=== PATIENT | male | born 1930 | race Caucasian/White ===

== ENCOUNTER → 2016-10-24 | Outpatient (CLI) | payer BC ==
[2016-10-24 17:02] LABS: BASO % 0.1 %; BASO ABS # 0.01 K/uL (0-0.2); COMPLETE YES; EOS % 7.7 %; HEMATOCRIT 37.5 % (42-52); IG% 0.4 %; LYMPH % 17.3 %; LYMPH ABS # 1.37 K/uL (1.2-3.4); MEAN CELL VOLUME 98.7 fL (80-100); MEAN CORPUSCULAR HEMOGLOBIN 34.2 pg (25-34); MEAN CORPUSCULAR HGB CONC 34.7 g/dl (32-36); MEAN PLATELET VOLUME 7.8 fL (7.4-10.4); MONO % 6.3 %; NEUT % 68.2 %; PLATELET COUNT 309 K/uL (130-400); WHITE BLOOD COUNT 7.94 K/uL (4.8-10.8)
[2016-10-24 17:26] LABS: BLOOD UREA NITROGEN 23 mg/dl (7-18); BUN/CREATININE RATIO 28.9 (10-20); CALCIUM 9.1 mg/dl (8.5-10.1); CARBON DIOXIDE 29 mmol/L (21-32); CHLORIDE 98 mmol/L (98-107); GLUCOSE 102 mg/dl (70-99); SODIUM 137 mmol/L (136-145)
== END | disposition home or self-care (01) ==
LOC: C.LABBC 15:23
PROVIDERS: ATTEND Internal Medicine Geriatric Medicine
DX: D64.9 Anemia, unspecified (principal); R06.02 Shortness of breath; I27.2 Other secondary pulmonary hypertension; J44.9 Chronic obstructive pulmonary disease, unspecified; E04.2 Nontoxic multinodular goiter

== ENCOUNTER → 2017-03-28 | Outpatient (CLI) | payer BC ==
[2017-03-28 13:28] LABS: BASO % 0.1 %; BASO ABS # 0.01 K/uL (0-0.2); COMPLETE YES; EOS % 3.9 %; IG% 0.3 %; LYMPH % 20.4 %; LYMPH ABS # 1.47 K/uL (1.2-3.4); MEAN CELL VOLUME 102.3 fL (80-100); MEAN CORPUSCULAR HEMOGLOBIN 34.3 pg (25-34); MEAN CORPUSCULAR HGB CONC 33.5 g/dl (32-36); MEAN PLATELET VOLUME 8.3 fL (7.4-10.4); MONO % 6.9 %; NEUT % 68.4 %; PLATELET COUNT 305 K/uL (130-400); RED BLOOD COUNT 3.91 M/uL (4.7-6.1)
[2017-03-28 13:58] LABS: ALT/SGPT 22 U/L (12-78); AST/SGOT 21 U/L (15-37); BLOOD UREA NITROGEN 18 mg/dl (7-18); BUN/CREATININE RATIO 22.7 (10-20); CARBON DIOXIDE 30 mmol/L (21-32); CHLORIDE 102 mmol/L (98-107); GLUCOSE 90 mg/dl (70-99); POTASSIUM 4.1 mmol/L (3.5-5.1); SODIUM 137 mmol/L (136-145)
[2017-03-28 14:08] LABS: ALB/GLOB RATIO 1.1 (0.9-2); ALKALINE PHOSPHATASE 53 U/L (45-117)
== END | disposition home or self-care (01) ==
LOC: C.LABBC 10:31
PROVIDERS: ATTEND Internal Medicine Geriatric Medicine
DX: D64.9 Anemia, unspecified (principal); R06.02 Shortness of breath; E04.2 Nontoxic multinodular goiter; E53.8 Deficiency of other specified B group vitamins; E55.9 Vitamin D deficiency, unspecified; J44.9 Chronic obstructive pulmonary disease, unspecified

== ENCOUNTER → 2017-04-30 | Outpatient (CLI) | payer BC ==
--- NOTE | 2017-04-30 14:06 | DIAGNOSTIC IMAGING REPORT ---
(CHEST) THORAX WITHOUT CLINICAL HISTORY: I71.2 CHEST PAIN. HISTORY OF THORACIC AORTIC ANEURYSM. COMPARISON STUDY: A 2216 CT DOSE: 213.18 mGy.cm TECHNIQUE: CT of the thorax was performed from the thoracic inlet to the lung bases. Images are reviewed in the axial, sagittal, and coronal planes. IV contrast was not administered for this examination. A dose lowering technique was utilized adhering to the principles of ALARA. FINDINGS: Thyroid: Imaged portions of the thyroid gland are normal in appearance. Thoracic aorta: There is dilatation of the ascending thoracic aorta which measures 47 mm in diameter at the level of the pulmonary artery. This remains relatively similar to the preceding study. Heart: The heart is normal in size and configuration, without pericardial effusion. Lungs and pleural spaces: There is no focal pulmonary consolidation. No pleural effusions are visualized. There is lower lobe scarring. There is scattered calcified granulomas. Mediastinum: There is no evidence of pathologic adenopathy [place]: There is no evidence of pathologic hilar adenopathy given the limitations of a noncontrast study Axilla: There is no evidence of pathologic axillary lymphadenopathy Upper abdomen: Partially visualized upper abdominal viscera is within normal limits. Skeletal structures: There is an old T12 compression deformity. IMPRESSION: 1. Mild aneurysmal dilatation of the ascending thoracic aorta which measures 4.6 cm. 2. No evidence of focal pulmonary consolidation. No pleural effusions. Electronically signed by: Lyle Zeng M.D. 04/30/2017 2:05 PM Dictated Date/Time: 04/30/2017 2:01 PM
== END | disposition home or self-care (01) ==
LOC: C.CTS 13:31
PROVIDERS: ATTEND Internal Medicine Geriatric Medicine
DX: I71.2 Thoracic aortic aneurysm, without rupture (principal)

== ENCOUNTER → 2017-07-11 | Outpatient (CLI) | payer BC ==
--- NOTE | 2017-07-11 16:21 | DIAGNOSTIC IMAGING REPORT ---
ULTRASOUND BILATERAL LOWER EXTREMITY VENOUS CLINICAL HISTORY: Lower extremity edema. COMPARISON STUDY: No priors. TECHNIQUE: Real-time, grayscale, and color Doppler sonography of the deep veins of the right and left lower extremity was performed from the inguinal crease to the calf. Compression and augmentation were utilized. FINDINGS: There is no sonographic evidence of deep venous thrombosis identified in the right or left lower extremity. The common femoral, superficial femoral, and popliteal veins are patent and normally compressible bilaterally. The greater saphenous vein and the profunda femoris vein at the junction with the common femoral vein are clear in both legs. The visualized calf veins are patent bilaterally. IMPRESSION: There is no sonographic evidence of deep venous thrombosis identified in the right or left lower extremity. Electronically signed by: Vince Schwartz M.D. 07/11/2017 4:20 PM Dictated Date/Time: 07/11/2017 4:20 PM
== END | disposition home or self-care (01) ==
LOC: C.ULTR 15:14
PROVIDERS: ATTEND Internal Medicine Pulmonary Disease
DX: R60.9 Edema, unspecified (principal)

== ENCOUNTER → 2017-08-15 | Outpatient (CLI) | payer BC | END | disposition home or self-care (01) | LOC: C.PATHSPEC 17:20 | PROVIDERS: ATTEND Plastic Surgery | DX: L57.0 Actinic keratosis (principal) ==

== ENCOUNTER → 2017-10-03 | Outpatient (CLI) | payer BC ==
[2017-10-03 13:34] LABS: BASO % 0.3 %; BASO ABS # 0.02 K/uL (0-0.2); EOS % 5.4 %; EOS ABS # 0.38 K/uL (0-0.5); HEMOGLOBIN 13.3 g/dL (14.0-18.0); IG# 0.02 K/uL (0.00-0.02); LYMPH % 19.5 %; LYMPH ABS # 1.38 K/uL (1.2-3.4); MEAN CELL VOLUME 101.5 fL (80-100); MEAN CORPUSCULAR HEMOGLOBIN 33.8 pg (25-34); MEAN CORPUSCULAR HGB CONC 33.3 g/dl (32-36); MEAN PLATELET VOLUME 7.9 fL (7.4-10.4); MONO % 6.2 %; MONO ABS # 0.44 K/uL (0.11-0.59); NEUT % 68.3 %; NEUT ABS # 4.85 K/uL (1.4-6.5); PLATELET COUNT 302 K/uL (130-400); RED CELL DISTRIBUTION WIDTH SD 52.4 fL (36.4-46.3); WHITE BLOOD COUNT 7.09 K/uL (4.8-10.8)
[2017-10-03 13:57] LABS: BLOOD UREA NITROGEN 15 mg/dl (7-18); CALCIUM 9.1 mg/dl (8.5-10.1); CARBON DIOXIDE 29 mmol/L (21-32); CREATININE 0.79 mg/dl (0.60-1.40); GLUCOSE 88 mg/dl (70-99); POTASSIUM 4.1 mmol/L (3.5-5.1); SODIUM 133 mmol/L (136-145)
== END | disposition home or self-care (01) ==
LOC: C.LABBC 11:18
PROVIDERS: ATTEND Internal Medicine Geriatric Medicine
DX: D64.9 Anemia, unspecified (principal); R60.9 Edema, unspecified

== ENCOUNTER → 2017-11-14 | Outpatient (CLI) | payer BC | END | disposition home or self-care (01) | LOC: C.PATHSPEC 16:41 | PROVIDERS: ATTEND Physician Assistant | DX: C44.629 Squamous cell carcinoma of skin of left upper limb, including shoulder (principal); L85.9 Epidermal thickening, unspecified; L57.8 Other skin changes due to chronic exposure to nonionizing radiation; L90.5 Scar conditions and fibrosis of skin ==

== ENCOUNTER 2020-12-08 18:10 | Inpatient (IN) ==
[2020-12-08] MEDS ORDERED: SODIUM CHLORIDE 0.9% 1000ML 1,000 ML IV SCH (18:45)
[2020-12-08 18:49] LABS: Basophils # (auto) 0.01 K/uL (0-0.2); Eosinophils # (auto) 0.01 K/uL (0-0.5); Hematocrit (blood only) 37.3 % (42-52); Hemoglobin 12.7 g/dL (14.0-18.0); Immature Granulocytes # (auto) 0.12 K/uL (0.00-0.02); Immature Granulocytes % (auto) 0.6 %; Lymphocytes # (auto) 0.37 K/uL (1.2-3.4); Lymphocytes % (auto) 1.8 %; Mean Corpuscular Hemoglobin 34.6 pg (25-34); Mean Corpuscular Volume 101.6 fL (80-100); Mean Platelet Volume 8.1 fL (7.4-10.4); Monocytes # (auto) 0.63 K/uL (0.11-0.59); Monocytes % (auto) 3.1 %; Neutrophils # (auto) 19.51 K/uL (1.4-6.5); Neutrophils % (auto) 94.5 %; Platelet Count 244 K/uL (130-400); RDW Coefficient of Variation 14.6 % (11.5-14.5); RDW Standard Deviation 54.4 fL (36.4-46.3); Red Blood Count 3.67 M/uL (4.7-6.1); White Blood Count 20.65 K/uL (4.8-10.8)
[2020-12-08] MEDS ORDERED: MAGNESIUM SULFATE / D5W 1 GM/100 ML BAG IV STA (19:02)
[2020-12-08] MEDS ORDERED: ALBUTEROL HFA 8 GM INHALER INH ONE (19:02)
[2020-12-08 19:06] LABS: Albumin Level 3.2 gm/dl (3.4-5.0); BUN Creatinine Ratio 33.3 (10-20); Calcium 8.6 mg/dl (8.5-10.1); Creatinine Clr Calc Pharmacy 53.5 ml/min; Est GFR (African American) 91.1; Est GFR (Non-African American) 78.6; Potassium 3.3 mmol/L (3.5-5.1)
--- NOTE | 2020-12-08 19:09 | XRay Report ---
SINGLE VIEW CHEST CLINICAL HISTORY: Generalized weakness. FINDINGS: An AP, portable, upright chest radiograph is compared to study dated 04/20/2020 and correlat ed with chest CT dated 05/08/2018. The examination is degraded by portable technique and patient rota tion. The heart is enlarged and there is atherosclerotic calcification of the thoracic aorta. The p ulmonary vasculature is noncongested. Prominence of the central pulmonary vessels likely represents p ulmonary artery hypertension. Emphysema and chronic interstitial thickening are similar to previous. Foci of parenchymal scarring/atelectasis are seen throughout both lungs. There is no evidence of supe rimposed airspace consolidation or large pleural effusion. There is no pneumothorax. The skeletal str uctures are osteopenic. Degenerative change is noted throughout the thoracic spine and in the shoulde rs. IMPRESSION: Cardiomegaly and emphysema with no acute cardiopulmonary abnormality. Electronically signed by: Vince Schwartz M.D. 12/08/2020 7:07 PM
--- NOTE | 2020-12-08 19:23 | CT Scan Report ---
CT SCAN OF THE CERVICAL SPINE CLINICAL HISTORY: Fall. COMPARISON STUDY: No priors. TECHNIQUE: CT scan of the cervical spine is performed from the skull base to the upper thoracic spine . Images are reviewed in the axial, sagittal, and coronal planes. IV contrast was not administered fo r this examination. A dose lowering technique was utilized adhering to the principles of ALARA. CT DOSE: 1226.66 mGy.cm FINDINGS: Skeletal structures: The skeletal structures are osteopenic. There is no evidence of fracture or subl uxation involving the cervical spine. Vertebral body height and alignment are maintained. Anterior os teophytes are seen throughout. The odontoid process and lateral masses are intact. The atlantoaxial a rticulation is preserved noting advanced productive degenerative change. The spinous processes appear intact. There is moderate to advanced multilevel cervical spondylosis. Uncovertebral and facet arthr opathy contribute to neural foraminal stenosis at most levels. Intervertebral discs: There is moderate to advanced disc space narrowing seen at C4-C5, C5-C6, and C6 -C7. Mild to moderate disc space narrowing is seen at the remaining cervical levels. Central canal: Posterior disc osteophyte complexes are seen at all levels from C3 -C4 through C6-C7. This likely contributes to multilevel acquired compromise of the central canal. Soft tissues: The prevertebral and paraspinous soft tissues are within normal limits. Calvarium: The visualized calvarium at the skull base appears intact. Brain parenchyma: Partially visualized brain parenchyma at the skull base is within normal limits. Mastoids: The mastoid air cells are well pneumatized. Lung apices: Clear as visualized. IMPRESSION: 1. There is no evidence of fracture or subluxation involving the cervical spine. 2. Osteopenia and spondylotic change as above. ACT 112: Negative or not required by law. Electronically signed by: Vince Schwartz M.D. 12/08/2020 7:21 PM
--- NOTE | 2020-12-08 19:25 | CT Scan Report ---
CT SCAN OF THE BRAIN WITHOUT IV CONTRAST CLINICAL HISTORY: Fall. COMPARISON STUDY: CT of the brain dated 11/12/2007. TECHNIQUE: Unenhanced axial CT scan of the brain is performed from the vertex to the skull base. A do se lowering technique was utilized adhering to the principles of ALARA. FINDINGS: Brain parenchyma: There are age-related involutional changes noting advanced subcortical and periven tricular microangiopathic change. There is no hemorrhage, mass effect, or evidence of acute territori al ischemia by CT criteria. Sanderson-white matter differentiation is preserved. No extra-axial fluid dre ection is seen. Ventricles, sulci, cisterns: Prominent secondary to involutional change. Intracranial vasculature: There is atherosclerotic calcification of the cavernous carotid and vertebr al arteries. Calvarium: The skeletal structures are osteopenic. No depressed calvarial fracture is identified. Sinuses and mastoids: The visualized paranasal sinuses are clear. The mastoid air cells are well pneu matized. Orbits: The bony orbits are grossly intact. There are bilateral ocular lens implants. IMPRESSION: There is no hemorrhage, mass effect, or evidence of acute territorial ischemia by CT ashley weston. ACT 112: Negative or not required by law. Electronically signed by: Vince Schwartz M.D. 12/08/2020 7:24 PM
[2020-12-08 19:27] LABS: Bilirubin,Total 4.5 mg/dl (0.2-1); Globulin 3.1 gm/dl (2.5-4.0); Thyroid Stimulating Hormone 0.884 uIu/ml (0.300-4.500); Total Protein 6.3 gm/dl (6.4-8.2); Troponin I 0.046 ng/ml (0-0.045)
[2020-12-08] MEDS ORDERED: PIPERACILLIN/TAZOBACTAM 4.5 GM/120 ML BAG IV ONE (19:36)
[2020-12-08] MEDS ORDERED: PIPERACILL/TAZOBAC CONSULT ACTIVE PRN (19:36)
[2020-12-08 19:48] LABS: Influenza A virus by PCR Negative (Neg); Influenza B virus by PCR Negative (Neg); RSV by PCR Negative (Neg); SARS CoV2 RNA(COVID-19) InHosp NEGATIVE (Negative)
[2020-12-08] MEDS ORDERED: ALBUT/IPRATROP 3MG/0.5MG NEB 3 ML VIAL NEB STA (19:49)
[2020-12-08] MEDS ORDERED: OPTIRAY 320 100ml IV ONE (20:50)
--- NOTE | 2020-12-08 21:17 | CT Scan Report ---
CT SCAN OF THE ABDOMEN AND PELVIS WITH IV CONTRAST CLINICAL HISTORY: Hyperbilirubinemia. COMPARISON STUDY: Abdominal CT dated 11/14/2007. TECHNIQUE: Following the IV administration of 93 cc of Optiray 320, CT scan of the abdomen and pelvi s is performed from the lung bases to the proximal femora. Images are reviewed in the axial, sagittal , and coronal planes. IV contrast was administered without complication. A dose lowering technique wa s utilized adhering to the principles of ALARA. CT DOSE: 247.67 mGy.cm FINDINGS: Lung bases: The heart is enlarged and without pericardial effusion. Aneurysmal dilatation of the asce nding thoracic aorta is partially visualized. This measures up to 4.5 cm. There is bibasilar scarring /atelectasis, greatest at the right lung base. No airspace consolidation or pleural effusion is ident ified. There is a small hiatal hernia. Liver: The contrast-enhanced liver is normal in size, contour, and attenuation. There is no intrahepa tic biliary ductal dilatation. The hepatic veins and portal veins are patent. Gallbladder: The gallbladder is distended. The gallbladder wall appears thickened and there is mild p ericystic infiltration. Question a calcified gallstone within the common bile duct on image #[id number]. Spleen: Normal in size and attenuation. Pancreas: Moderately atrophic and grossly unremarkable. Adrenal glands: Unremarkable. Kidneys: The contrast enhanced kidneys demonstrate cortical atrophy and are without hydronephrosis. T he kidneys enhance symmetrically. Abdominal vasculature: The abdominal aorta is normal in course and caliber noting moderate atheroscle rotic calcification. Bowel: No bowel obstruction is identified. There is moderate constipation. There is mild to moderate colonic diverticulosis without CT evidence of acute diverticulitis. The appendix is not visualized. Peritoneum: There is no intraperitoneal free air or abdominal ascites. Lymphadenopathy: None. Pelvic viscera: The prostate gland is diminutive and heterogeneous. The bladder is normal as visualiz ed. A left inguinal hernia contains a nonobstructed segment of colon. Skeletal structures: The skeletal structures are osteopenic. There is moderate to advanced lumbosacra l spondylosis. There is a chronic compression deformity of T12. No lytic or blastic lesions are seen. IMPRESSION: 1. Findings are concerning for acute cholecystitis and clinical correlation will be required. If nece ssary a right upper quadrant ultrasound could be considered for further assessment. 2. Question a calcified gallstone within the common bile duct. 3. Cardiomegaly with aneurysmal dilatation of the ascending thoracic aorta. This is partially visuali zed and measures up to 4.5 cm. 4. Mild to moderate colonic diverticulosis without CT evidence of acute diverticulitis. 5. A left inguinal hernia contains a small segment of colon. 6. Additional findings as above. ACT 112: Negative or not required by law. Electronically signed by: Vince Schwartz M.D. 12/08/2020 9:15 PM
[2020-12-08] MEDS ORDERED: SODIUM CHLORIDE 0.9% 1000ML 500 ML IV ONE (21:58)
--- NOTE | 2020-12-08 22:39 | History & Physical Report ---
Date of Service December 08, 2020 Assessment & Plan (1) Ascending cholangitis: Patient is an 89 year old male with PMHx COPD, Dementia, BPH, and Macrocytic anemia that presents after supposed mechanical fall at home, found to have elevated LFTs, hyperbilirubinemia, and findings concerning for acute cholecystitis on abdominal/pelvis CT. Acute Cholecystitis with concerns of Ascending Cholangitis secondary to choledocholithiasis -Interestingly enough, patient without any signs of pain -LFT's grossly elevated AST 387, ALT 484, Alk Phos 220, Bilirubin 4.5 -CT Ab/Pelv noting acute cholecystitis with choledocholithiasis -MRCP ordered, read pending -Surgery consulted in ED - rec MRCP in addition to possible ERCP prior to likely cholecystectomy -GI consulted for possible ERCP -Patient started on Zosyn in ED, will continue with Zosyn -NPO, LR 80ml/hr x2L -Zofran PRN nausea -Morphine PRN pain, though patient has not explicit noted pain at this time -Tylenol PRN fever, has not required, appropriate even with acute elevations in LFTs if needed for antipyretic Fall -Per review of patient's recent wellness visit notes, appears to have been worsening as patient's Dementia has worsened -Head CT, Cervical Spine CT negative for acute pathology -Patient would likely benefit from PT/OT and short term rehab at SNF or inpatient rehab after his surgical complications are dealt with. -Would order PT/OT after suspected ERCP and cholecystectomy. Elevated Troponin -Troponin bump of 0.046 -No obvious concerning EKG changes -No chest pain, pressure, or angina on exertion -Will trend once in AM COPD -Received breathing treatments and 40mg IV Methylprednisolone in the ED -Continue home Breo Ellipta -Albuterol PRN -Duoneb PRN BPH -Continue home Finasteride Lower Extremity Edema -Chronic per patient -No history of heart failure -Regardless, will monitor fluid balance and hydrate gently with LR 80 ml/hr as to not fluid overload patient Macrocytic Anemia -Appears chronic secondary to hx Vitamin B12 deficiency -?Due to prior alcohol use -Will continue supplementation of B12 Dispo: Med/Surg for IVF, IV antibiotics, and continued monitoring for likely cholecystectomy and ERCP. Will likely require SNF or inpatient rehab placement after discharge. FEN: NPO, LR 80ml/hr x2L DVT: SCDs Code: DNR/DNI (2) COPD (chronic obstructive pulmonary disease): (3) Fall: (4) Skin tear: (5) Benign prostatic hyperplasia with urinary obstruction: (6) Macrocytic anemia: (7) Lower extremity edema: (8) Cholecystitis: History of Present Illness Chief Complaint: Fall Primary Care Provider: Eric Valadez DO Patient is an 89 year old male with PMHx COPD, Dementia, BPH, and Macrocytic anemia that presents after supposed mechanical fall at home, found to have elevated LFTs, hyperbilirubinemia, and findings concerning for acute cholecystitis on abdominal/pelvis CT. Patient notes that he has had increasing falls over the past few weeks, though this was not necessarily a new thing for him. He states that tonight after dinner (which he did not eat, last meal was toast and coffee in the AM), patient had taken his lift chair up to the second floor where his bedroom was. Upon arriving there he was handed his cane by his and as he proceeded to go into their room, he notes that he tripped and fell forward, hitting his L forehead, L elbow, and L knee. He denies feeling as though he were dizzy, weak, or about to faint and felt that he "just tripped." Supposedly unrelated to the fall, patient also has been noting worsening nausea and vomiting x4 times the past 3 days and increasing fatigue. He states that over all he has not felt well, but was not in any pain until the fall today. Currently he does note some discomfort where he had hit his head, arm, and knee. The abrasions on his L forehead and L elbow had ceased bleeding and his L knee was bandaged by the ED at time of evaluation. Patient denies any fever, chills, chest pain, abdominal pain, dizziness, visual changes. Med Hx: COPD, Dementia, BPH, Macrocytic Anemia Surg Hx: Lithotripsy, Thoracic aortic aneurysm repair, cataract surgery Soc Hx: No illicit drug use. Hx of alcohol use but quit 5-6 years ago. Hx of smoking pipe tobacco from ages [age]. Allergies Allergy/AdvReac Type Severity Reaction Status Date / Time No Known Allergies Allergy Verified 12/08/20 19:43 Home Medications Medication Instructions Recorded Confirmed Type ergocalciferol (vitamin D2) 50 mcg 2,000 units PO DAILY 11/17/19 12/08/20 History (2,000 unit) tablet mecobalamin (vitamin B12) 1,000 1,000 mcg PO DAILY 11/17/19 12/08/20 History mcg chewable tablet albuterol sulfate 90 mcg/actuation 2 puff INH Q4H PRN #18 gm 09/09/20 12/08/20 Rx aerosol inhaler finasteride 5 mg tablet 5 mg PO DAILY #90 tab 10/29/20 12/08/20 Rx ipratropium 0.5 mg-albuterol 3 mg 3 ml INH Q4H PRN #360 ml 11/25/20 12/08/20 Rx (2.5 mg base)/3 mL nebulization soln nebulizer accessories #1 ea 11/25/20 12/08/20 Rx furosemide 20 mg tablet 20 mg PO BID #180 tab 12/01/20 12/08/20 Rx budesonide-formoterol 2 puff INHALATION BID 12/08/20 12/08/20 History 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 COPD (chronic obstructive pulmonary disease) Degenerative arthritis of knee, bilateral H/O hearing loss H/O squamous cell carcinoma H/O varicose veins H/O vitamin D deficiency History of basal cell carcinoma Venous insufficiency Surgical History H/O repair of rotator cuff H/O thoracic aortic aneurysm repair History of lithotripsy History of tooth extraction Hx of cataract surgery Hx of colonoscopy Family History Mother Acquired amyotrophic lateral sclerosis Father Throat cancer Laryngeal cancer Denies family history of Prostate cancer Social History Smoking Status: Former smoker Tobacco Type: Pipe Second Hand Exposure: No; Do You Dip or Chew Tobacco: No; Tobacco Cessation Education Requested by Patient: No Hx Alcohol Use: Yes Alcohol type: beer Hx Substance Use: No Preferred Language: Finnish Communication Ability: Effective Visual Impairment: Limited Hearing Ability: Hard of Hearing Vegetable Buncher Required: No Beliefs That Will Affect Care: None marital status: Current Living Situation: Spouse Current Living Situation Comment: Lives at home with . 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 [employer] Other Information That Helps Us Care for You: No Feels Safe at Home: Yes Safety Concerns: Feels Safe At This Time Childhood Exposure to Second-Hand Smoke: Yes caffeine: Yes Dental Care, Regularly: Yes Physical Activity Frequency: Does not Exercise Seatbelt Use: always Sunscreen Use: No (does not go outside) Assistive Devices: Walker Review of Systems Review of Systems: All systems reviewed & are unremarkable except as noted in Subjective Physical Exam Constitutional: cooperative; no acute distress and not intoxicated appearing Eyes: PERRL, conjunctivae normal, anicteric sclerae ENMT: external ear and nose normal, oropharynx normal Respiratory: normal respiratory effort, lungs clear to auscultation Cardiovascular: Rate/Rhythm: regular rate and regular rhythm Heart Sounds: no murmur Gastrointestinal (Abdomen): Inspection/Auscultation: abdomen normal to inspection and normal bowel sounds; abdomen not distended Percussion/Palpation: abdomen nontender Negative Kelly's Sign Musculoskeletal: Skin abrasion noted on the L forehead, L elbow, R elbow, and L knee which has been dressed Skin: + jaundice Neurologic: PERRL, EOMI, accommodation nl, no face palsy, no dysarthria Psychiatric: A+Ox3, euthymic affect Results & Data Results & Data ([facility]) Vital Signs (Past 12 Hours) Vital Signs Temp Pulse Pulse Resp BP Pulse Ox 12/08/20 21:50 102 H 25 H 12/08/20 21:40 104 H 32 H 12/08/20 21:30 104 H 32 H 139/81 12/08/20 21:20 106 H 35 H 96 12/08/20 21:16 111 H 32 H 12/08/20 21:00 106 H 15 145/76 H 95 12/08/20 20:59 105 H 36 H 147/76 H 95 12/08/20 20:58 95 12/08/20 20:30 99 H 29 H 136/78 12/08/20 20:26 104 H 28 H 98 12/08/20 20:20 102 H 33 H 12/08/20 20:10 96 H 25 H 12/08/20 20:00 102 H 34 H 12/08/20 19:50 127 H 31 H 12/08/20 19:40 99 H 25 H 12/08/20 19:30 97 H 32 H 136/82 96 12/08/20 19:20 93 H 35 H 98 12/08/20 19:17 94 H 39 H 97 12/08/20 19:00 96 H 34 H 149/73 H 12/08/20 18:50 94 H 25 H 12/08/20 18:41 93 H 35 H 96 12/08/20 18:31 98 H 38 H 148/80 H 96 12/08/20 18:21 37.3 C 105 H 20 178/84 H 96 Laboratory Results Laboratory Results - last 24 hr 12/08/20 12/08/20 12/08/20 18:41 18:41 18:54 WBC 20.65 H RBC 3.67 L Hgb 12.7 L Hct 37.3 L MCV 101.6 H MCH 34.6 H MCHC 34.0 RDW Std Deviation 54.4 H RDW Coeff of Diana 14.6 H Plt Count 244 MPV 8.1 Immature Gran % (Auto) 0.6 Neut % (Auto) 94.5 Lymph % (Auto) 1.8 Stevens % (Auto) 3.1 Eos % (Auto) 0.0 Baso % (Auto) 0.0 Neut # (Auto) 19.51 H Lymph # (Auto) 0.37 L Stevens # (Auto) 0.63 H Eos # (Auto) 0.01 Baso # (Auto) 0.01 Immature Gran # (Auto) 0.12 H Sodium 137 Potassium 3.3 L Chloride 103 Carbon Dioxide 28 Anion Gap 6.0 BUN 28 H Creatinine 0.83 Est Cr Clr Drug Dosing 53.5 Est GFR ( Amer) 91.1 Est GFR (Non-Af Amer) 78.6 BUN/Creatinine Ratio 33.3 H Glucose 106 H Calcium 8.6 Total Bilirubin 4.5 H AST 387 H ALT 484 H Alkaline Phosphatase 220 H Troponin I 0.046 H* Total Protein 6.3 L Albumin 3.2 L Globulin 3.1 Albumin/Globulin Ratio 1.0 Lipase 92 TSH 0.884 Urine Color Urine Appearance Urine pH Ur Specific [place] Urine Protein Urine Glucose (UA) Urine Ketones Urine Blood Urine Nitrite Urine Bilirubin Urine Urobilinogen Ur Leukocyte Esterase Urine WBC (Auto) Urine RBC (Auto) U Hyaline Cast (Auto) U Epithel Cells (Auto) Urine Bacteria (Auto) Nasal Screen MRSA (PCR) COVID-19 Eval Order [facility]FluRsv at [facility] SARS-CoV-2 (PCR) Influenza Type A (PCR) Influenza Type B (PCR) RSV (RT-PCR) 12/08/20 12/08/20 12/08/20 18:54 21:25 22:55 WBC RBC Hgb Hct MCV MCH MCHC RDW Std Deviation RDW Coeff of Daina Plt Count MPV Immature Gran % (Auto) Neut % (Auto) Lymph % (Auto) Stevens % (Auto) Eos % (Auto) Baso % (Auto) Neut # (Auto) Lymph # (Auto) Stevens # (Auto) Eos # (Auto) Baso # (Auto) Immature Gran # (Auto) Sodium Potassium Chloride Carbon Dioxide Anion Gap BUN Creatinine Est Cr Clr Drug Dosing Est GFR ( Amer) Est GFR (Non-Af Amer) BUN/Creatinine Ratio Glucose Calcium Total Bilirubin AST ALT Alkaline Phosphatase Troponin I Total Protein Albumin Globulin Albumin/Globulin Ratio Lipase TSH Urine Color Dark Yellow Urine Appearance Clear Urine pH 6.5 Ur Specific [place] 1.045 H Urine Protein Trace H Urine Glucose (UA) Negative Urine Ketones 2+ H Urine Blood Negative Urine Nitrite Positive A Urine Bilirubin 2+ H Urine Urobilinogen Positive H Ur Leukocyte Esterase Negative Urine WBC (Auto) 1-5 Urine RBC (Auto) 5-10 H U Hyaline Cast (Auto) 1-5 U Epithel Cells (Auto) 5-10 H Urine Bacteria (Auto) Negative Nasal Screen MRSA (PCR) Negative COVID-19 Eval Order SARS-CoV-2 (PCR) NEGATIVE Influenza Type A (PCR) Negative Influenza Type B (PCR) Negative RSV (RT-PCR) Negative Diagnostic Findings SINGLE VIEW CHEST CLINICAL HISTORY: Generalized weakness. FINDINGS: An AP, portable, upright chest radiograph is compared to study dated 04/20/2020 and correlated with chest CT dated 05/08/2018. The examination is degraded by portable technique and patient rotation. The heart is enlarged and there is atherosclerotic calcification of the thoracic aorta. The pulmonary vasculature is noncongested. Prominence of the central pulmonary vessels likely represents pulmonary artery hypertension. Emphysema and chronic interstitial thickening are similar to previous. Foci of parenchymal scarring/atelectasis are seen throughout both lungs. There is no evidence of superimposed airspace consolidation or large pleural effusion. There is no pneumothorax. The skeletal structures are osteopenic. Degenerative change is noted throughout the thoracic spine and in the shoulders. IMPRESSION: Cardiomegaly and emphysema with no acute cardiopulmonary abnormality. CT SCAN OF THE CERVICAL SPINE CLINICAL HISTORY: Fall. COMPARISON STUDY: No priors. TECHNIQUE: CT scan of the cervical spine is performed from the skull base to the upper thoracic spine. Images are reviewed in the axial, sagittal, and coronal planes. IV contrast was not administered for this examination. A dose lowering technique was utilized adhering to the principles of ALARA. CT DOSE: 1226.66 mGy.cm FINDINGS: Skeletal structures: The skeletal structures are osteopenic. There is no evidence of fracture or subluxation involving the cervical spine. Vertebral body height and alignment are maintained. Anterior osteophytes are seen throughout. The odontoid process and lateral masses are intact. The atlantoaxial articulation is preserved noting advanced productive degenerative change. The spinous processes appear intact. There is moderate to advanced multilevel cervical spondylosis. Uncovertebral and facet arthropathy contribute to neural foraminal stenosis at most levels. Intervertebral discs: There is moderate to advanced disc space narrowing seen at C4-C5, C5-C6, and C6-C7. Mild to moderate disc space narrowing is seen at the remaining cervical levels. Central canal: Posterior disc osteophyte complexes are seen at all levels from C3 -C4 through C6-C7. This likely contributes to multilevel acquired compromise of the central canal. Soft tissues: The prevertebral and paraspinous soft tissues are within normal limits. Calvarium: The visualized calvarium at the skull base appears intact. Brain parenchyma: Partially visualized brain parenchyma at the skull base is within normal limits. Mastoids: The mastoid air cells are well pneumatized. Lung apices: Clear as visualized. IMPRESSION: 1. There is no evidence of fracture or subluxation involving the cervical spine. 2. Osteopenia and spondylotic change as above. CT SCAN OF THE BRAIN WITHOUT IV CONTRAST CLINICAL HISTORY: Fall. COMPARISON STUDY: CT of the brain dated 11/12/2007. TECHNIQUE: Unenhanced axial CT scan of the brain is performed from the vertex to the skull base. A dose lowering technique was utilized adhering to the princip les of AC. FINDINGS: Brain parenchyma: There are age-related involutional changes noting advanced subcortical and periventricular microangiopathic change. There is no hemorrhage, mass effect, or evidence of acute territorial ischemia by CT criteria. Sanderson- white matter differentiation is preserved. No extra-axial fluid collection is seen. Ventricles, sulci, cisterns: Prominent secondary to involutional change. Intracranial vasculature: There is atherosclerotic calcification of the cavernous carotid and vertebral arteries. Calvarium: The skeletal structures are osteopenic. No depressed calvarial fracture is identified. Sinuses and mastoids: The visualized paranasal sinuses are clear. The mastoid air cells are well pneumatized. Orbits: The bony orbits are grossly intact. There are bilateral ocular lens implants. IMPRESSION: There is no hemorrhage, mass effect, or evidence of acute territorial ischemia by CT criteria. CT SCAN OF THE ABDOMEN AND PELVIS WITH IV CONTRAST CLINICAL HISTORY: Hyperbilirubinemia. COMPARISON STUDY: Abdominal CT dated 11/14/2007. TECHNIQUE: Following the IV administration of 93 cc of Optiray 320, CT scan of the abdomen and pelvis is performed from the lung bases to the proximal femora. Images are reviewed in the axial, sagittal, and coronal planes. IV contrast was administered without complication. A dose lowering technique was utilized adhering to the principles of ALARA. CT DOSE: 247.67 mGy.cm FINDINGS: Lung bases: The heart is enlarged and without pericardial effusion. Aneurysmal dilatation of the ascending thoracic aorta is partially visualized. This measures up to 4.5 cm. There is bibasilar scarring/atelectasis, greatest at the right lung base. No airspace consolidation or pleural effusion is identified. There is a small hiatal hernia. Liver: The contrast-enhanced liver is normal in size, contour, and attenuation. There is no intrahepatic biliary ductal dilatation. The hepatic veins and portal veins are patent. Gallbladder: The gallbladder is distended. The gallbladder wall appears thickened and there is mild pericystic infiltration. Question a calcified gallstone within the common bile duct on image #[id number]. Spleen: Normal in size and attenuation. Pancreas: Moderately atrophic and grossly unremarkable. Adrenal glands: Unremarkable. Kidneys: The contrast enhanced kidneys demonstrate cortical atrophy and are without hydronephrosis. The kidneys enhance symmetrically. Abdominal vasculature: The abdominal aorta is normal in course and caliber noting moderate atherosclerotic calcification. Bowel: No bowel obstruction is identified. There is moderate constipation. There is mild to moderate colonic diverticulosis without CT evidence of acute diverticulitis. The appendix is not visualized. Peritoneum: There is no intraperitoneal free air or abdominal ascites. Lymphadenopathy: None. Pelvic viscera: The prostate gland is diminutive and heterogeneous. The bladder is normal as visualized. A left inguinal hernia contains a nonobstructed segment of colon. Skeletal structures: The skeletal structures are osteopenic. There is moderate to advanced lumbosacral spondylosis. There is a chronic compression deformity of T12. No lytic or blastic lesions are seen. IMPRESSION: 1. Findings are concerning for acute cholecystitis and clinical correlation will be required. If necessary a right upper quadrant ultrasound could be considered for further assessment. 2. Question a calcified gallstone within the common bile duct. 3. Cardiomegaly with aneurysmal dilatation of the ascending thoracic aorta. This is partially visualized and measures up to 4.5 cm. 4. Mild to moderate colonic diverticulosis without CT evidence of acute diverticulitis. 5. A left inguinal hernia contains a small segment of colon. 6. Additional findings as above. Supervising Physician Co-Signing Physician Notes Patient seen and examined, chart reviewed, case discussed with Dr. Wagner and I agree with his assessment and plan as above. Briefly, patient is an 89yo male presenting after fall. Found with acute cholecystitis On exam he is afebrile, HD stable, NAD Skin - mild jaundice HEENT - NC/AT, PERRL, EOMI, MMM Heart - +S1/S2, regular Lungs - CTA Abd - +BS, soft, NT/ND Ext - No edema Labs and images reviewed. Leukocytosis, elevated AST/ALT/Tbili/AP, concern for acute cholecystitis on imaging, concern for CBD stone Assessment/Plan -MRCP -GI consultation appreciated, ?ERCP -General surgery consultation -Zosy, pain control, Zofran -Remainder of plan as above Resident Activity Tracking Resident Involvement: Resident Care Provided Care Provided: Adult Hospital Medicine (1) COPD (chronic obstructive pulmonary disease) COPD type: unspecified COPD Qualified Code(s): J44.9 - Chronic obstructive pulmonary disease, unspecified (2) Fall Encounter type: initial encounter Qualified Code(s): W19.XXXA - Unspecified fall, initial encounter
--- NOTE | 2020-12-08 23:22 | Emergency Department Note ---
Impression & Plan Ascending cholangitis, COPD (chronic obstructive pulmonary disease), Fall, Skin tear ED Provider Note NAME: CHRISTY MEYERS AGE: 89 SEX: M : 1930 ARRIVES VIA: Ambulance INFORMANT: Patient, ED PROVIDER(S): Oj Corrales MD Chief Complaint: Fall, weakness HPI: Patient does present with his after the patient had approximately an hour getting into the lift chair and upon getting up to the top of the stairs had a fall striking the left side of his head. No LOC or seizure-like activity. The patient does not complain of any headache or neck pain. The patient denies any chest back abdomen or extremity pain with exception of mild pain to the right arm secondary to a skin tear. The patient does not take anything prior to arrival. The patient does state that she cannot take care of him at home does have a history of dementia. Patient has had a mild nonproductive cough and did have 4 episodes of vomiting yesterday. Patient does have chronic lower extremity edema which is unchanged. ROS: See HPI for pertinent positives and negatives. A total of 10 systems were reviewed and otherwise negative. Past medical history: See below Surgical history: See below Social history: See below Physical Exam: GENERAL: Wearing a mask NAD, non-toxic. EYE EXAM: PERRL, no anisocoria and EOM's grossly intact w/o pain. Head: Left forehead with abrasion. Hemostatic. NECK: Supple, no nuchal rigidity, no adenopathy, non-tender. No signs of meningismus. LUNGS: Clear to auscultation. Normal chest wall mechanics. HEART: Tachycardic and regular, no MRG. ABDOMEN: Abdomen soft, non-tender, normo-active bowel sounds, no masses, no rebound or guarding. BACK: No CVA TTP. SKIN: No rashes and no bruising. UPPER EXTREMITIES: Right upper extremity with skin tear just distal and lateral to the right elbow, compartments are soft. Mild TTP over the skin tear but good range of motion at the elbow and wrist. LOWER EXTREMITIES: Grossly normal, 2+ symmetric bilateral lower extremity edema without calf pain. Negative Homans' sign bilaterally. NEURO EXAM: A&O x3, cranial nerves II-XII grossly intact, normal speech, moves all 4 extremities on command w/o issue. Differential diagnoses: Infection, dehydration, metabolic abnormality, hypo/hyperglycemia, electrolyte disturbance, anemia, hypoxia, cardiac sources, intracerebral event, toxicologic, neurologic, as well as other pathologies. Course: Patient was seen and evaluated the bedside. Full history physical exam was performed. EKG: Indication: Weakness Sinus rhythm with first-degree AV block, rate of 88, prolonged LA, normal QRS, normal axis, no obvious ST changes. Imaging Studies: See below Cardiac monitoring: An order was placed for continuous cardiac monitoring. The monitor shows a rate of 95 with sinus rhythm. MDM: Patient was seen due to concern for weakness and fall. Blood work is obtained along with a CT of the head and cervical spine. CT head and cervical spine unremarkable. Patient is a white count of 20 with transaminitis. Given this I did order a CAT scan of the abdomen pelvis. This does show likely ascending cholangitis and associated cholecystitis. The patient does not have any reproducible right upper quadrant pain denies this. Patient is negative for flu RSV and Covid. MRSA screen negative. The patient did have some slight wheezing and shortness of breath with a known history of COPD so he was ordered an inhaler and steroids. Patient subsequently did receive a breathing treatment. Patient's troponin is detectable at 0.04 but the patient denied any chest pains. The patient does have some shortness of breath but believe that this is demand related. EKG nonischemic. The patient also did have some mild aneurysmal dilatation of the ascending thoracic aorta. Left inguinal hernia noted but not obstructed. Diverticulosis without diverticulitis. Calcified gallstone may be within the CBD. No intrahepatic biliary dilatation. The patient was given a small amount of fluids as the patient does have chronic lower extremity swelling. Given the patient's cholangitis I did speak with the on-call general surgeon who recommended medical management and ERCP. This was discussed with Dr. Anand. I subsequently did speak with the on-call GI Dr. High stated that they should be able to complete the ERCP in the morning. The patient did receive the antibiotics. The patient's temperature was normal with a normal blood pressure. I did speak with the on-call hospitalist Dr. Andrade and the patient was admitted to the medicine service. Lipase was added and pending at the time of admission. 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 COPD (chronic obstructive pulmonary disease) Degenerative arthritis of knee, bilateral H/O hearing loss H/O squamous cell carcinoma H/O varicose veins H/O vitamin D deficiency History of basal cell carcinoma Venous insufficiency Surgical History H/O repair of rotator cuff H/O thoracic aortic aneurysm repair History of lithotripsy History of tooth extraction Hx of cataract surgery Hx of colonoscopy Family History Mother Acquired amyotrophic lateral sclerosis Father Throat cancer Laryngeal cancer Denies family history of Prostate cancer Social History Smoking Status: Former smoker Tobacco Type: Pipe Second Hand Exposure: No; Hx Alcohol Use: Yes Alcohol type: beer Hx Substance Use: No Preferred Language: Bolivian Communication Ability: Effective Visual Impairment: Limited Hearing Ability: Hard of Hearing Youth Director Required: No Beliefs That Will Affect Care: None marital status: Current Living Situation: Spouse current occupational status: retired 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 [employer] Feels Safe at Home: Yes Childhood Exposure to Second-Hand Smoke: Yes caffeine: Yes Dental Care, Regularly: Yes Physical Activity Frequency: Does not Exercise Seatbelt Use: always Sunscreen Use: No (does not go outside) Allergies Allergies Allergy/AdvReac Type Severity Reaction Status Date / Time No Known Allergies Allergy Verified 12/08/20 19:43 Home Meds Home Medications Medication Instructions Recorded Confirmed ergocalciferol (vitamin D2) 50 mcg 2,000 units PO DAILY 11/17/19 12/08/20 (2,000 unit) tablet mecobalamin (vitamin B12) 1,000 1,000 mcg PO DAILY 11/17/19 12/08/20 mcg chewable tablet budesonide-formoterol 2 puff INHALATION BID 12/08/20 12/08/20 Previous Rx's Medication Instructions Recorded albuterol sulfate 90 mcg/actuation 2 puff INH Q4H PRN #18 gm 09/09/20 aerosol inhaler finasteride 5 mg tablet 5 mg PO DAILY #90 tab 10/29/20 ipratropium 0.5 mg-albuterol 3 mg 3 ml INH Q4H PRN #360 ml 11/25/20 (2.5 mg base)/3 mL nebulization soln nebulizer accessories #1 ea 11/25/20 furosemide 20 mg tablet 20 mg PO BID #180 tab 12/01/20 Results & Data (ED) Vital Signs Vital Signs - 24 hr 12/08/20 18:21 12/08/20 18:31 12/08/20 18:41 Temperature 37.3 C Temperature Source Oral Pulse Rate 105 H 98 H 93 H Pulse Rate [Apical] Pulse Rate from SpO2 Sensor 97 H 94 H Respiratory Rate 20 38 H 35 H Respiratory Effort / Characteristics Non-Labored Spontaneous Respiratory Depth Normal Respiratory Pattern Regular Blood Pressure 178/84 H 148/80 H Blood Pressure Mean 115 102 Blood Pressure Position Sitting Pulse Oximetry 96 96 96 Oxygen Delivery Method Room Air Room Air Room Air Sepsis Recent Fever Within 48 Hours No Sepsis New/Unexplained Change in Mental Status N/A Sepsis Action Taken by Nursing No Action Required 12/08/20 18:44 12/08/20 18:50 12/08/20 19:00 Temperature Temperature Source Pulse Rate 94 H 96 H Pulse Rate [Apical] Pulse Rate from SpO2 Sensor Respiratory Rate 25 H 34 H Respiratory Effort / Characteristics Respiratory Depth Respiratory Pattern Blood Pressure 149/73 H Blood Pressure Mean 98 Blood Pressure Position Pulse Oximetry Oxygen Delivery Method Room Air Room Air Room Air Sepsis Recent Fever Within 48 Hours Sepsis New/Unexplained Change in Mental Status Sepsis Action Taken by Nursing 12/08/20 19:17 12/08/20 19:20 12/08/20 19:30 Temperature Temperature Source Pulse Rate 94 H 93 H 97 H Pulse Rate [Apical] Pulse Rate from SpO2 Sensor 93 H 93 H 96 H Respiratory Rate 39 H 35 H 32 H Respiratory Effort / Characteristics Respiratory Depth Respiratory Pattern Blood Pressure 136/82 Blood Pressure Mean 100 Blood Pressure Position Pulse Oximetry 97 98 96 Oxygen Delivery Method Room Air Room Air Room Air Sepsis Recent Fever Within 48 Hours Sepsis New/Unexplained Change in Mental Status Sepsis Action Taken by Nursing 12/08/20 19:40 12/08/20 19:50 12/08/20 20:00 Temperature Temperature Source Pulse Rate 99 H 127 H 102 H Pulse Rate [Apical] Pulse Rate from SpO2 Sensor Respiratory Rate 25 H 31 H 34 H Respiratory Effort / Characteristics Respiratory Depth Respiratory Pattern Blood Pressure Blood Pressure Mean Blood Pressure Position Pulse Oximetry Oxygen Delivery Method Room Air Room Air Room Air Sepsis Recent Fever Within 48 Hours Sepsis New/Unexplained Change in Mental Status Sepsis Action Taken by Nursing 12/08/20 20:10 12/08/20 20:20 12/08/20 20:26 Temperature Temperature Source Pulse Rate 96 H 102 H Pulse Rate [Apical] 104 H Pulse Rate from SpO2 Sensor Respiratory Rate 25 H 33 H 28 H Respiratory Effort / Characteristics Respiratory Depth Respiratory Pattern Blood Pressure Blood Pressure Mean Blood Pressure Position Pulse Oximetry 98 Oxygen Delivery Method Room Air Room Air Room Air Sepsis Recent Fever Within 48 Hours Sepsis New/Unexplained Change in Mental Status Sepsis Action Taken by Nursing 12/08/20 20:30 12/08/20 20:58 12/08/20 20:59 Temperature Temperature Source Pulse Rate 99 H 105 H Pulse Rate [Apical] Pulse Rate from SpO2 Sensor 106 H 105 H Respiratory Rate 29 H 36 H Respiratory Effort / Characteristics Respiratory Depth Respiratory Pattern Blood Pressure 136/78 147/76 H Blood Pressure Mean 97 99 Blood Pressure Position Pulse Oximetry 95 95 Oxygen Delivery Method Room Air Room Air Room Air Sepsis Recent Fever Within 48 Hours Sepsis New/Unexplained Change in Mental Status Sepsis Action Taken by Nursing 12/08/20 21:00 12/08/20 21:16 12/08/20 21:20 Temperature Temperature Source Pulse Rate 106 H 111 H 106 H Pulse Rate [Apical] Pulse Rate from SpO2 Sensor 106 H 106 H Respiratory Rate 15 32 H 35 H Respiratory Effort / Characteristics Respiratory Depth Respiratory Pattern Blood Pressure 145/76 H Blood Pressure Mean 99 Blood Pressure Position Pulse Oximetry 95 96 Oxygen Delivery Method Room Air Room Air Room Air Sepsis Recent Fever Within 48 Hours Sepsis New/Unexplained Change in Mental Status Sepsis Action Taken by Nursing 12/08/20 21:30 12/08/20 21:40 12/08/20 21:50 Temperature Temperature Source Pulse Rate 104 H 104 H 102 H Pulse Rate [Apical] Pulse Rate from SpO2 Sensor Respiratory Rate 32 H 32 H 25 H Respiratory Effort / Characteristics Respiratory Depth Respiratory Pattern Blood Pressure 139/81 Blood Pressure Mean 100 Blood Pressure Position Pulse Oximetry Oxygen Delivery Method Room Air Room Air Room Air Sepsis Recent Fever Within 48 Hours Sepsis New/Unexplained Change in Mental Status Sepsis Action Taken by Residential Medications Current Medication List: was personally reviewed by me Laboratory Data Attestation: I reviewed the patient's lab results. Result diagrams: 12/08/20 18:41 12/08/20 18:41 Lab Results 12/08/20 12/08/20 12/08/20 Range/Units 18:41 18:41 18:54 WBC 20.65 H (4.8-10.8) K/uL RBC 3.67 L (4.7-6.1) M/uL Hgb 12.7 L (14.0-18.0) g/dL Hct 37.3 L (42-52) % MCV 101.6 H (80-100) fL MCH 34.6 H (25-34) pg MCHC 34.0 (32-36) g/dL RDW Std Deviation 54.4 H (36.4-46.3) fL RDW Coeff of Diana 14.6 H (11.5-14.5) % Plt Count 244 (130-400) K/uL MPV 8.1 (7.4-10.4) fL Immature Gran % (Auto) 0.6 % Neut % (Auto) 94.5 % Lymph % (Auto) 1.8 % [facility] % (Auto) 3.1 % Eos % (Auto) 0.0 % Baso % (Auto) 0.0 % Neut # (Auto) 19.51 H (1.4-6.5) K/uL Lymph # (Auto) 0.37 L (1.2-3.4) K/uL [facility] # (Auto) 0.63 H (0.11-0.59) K/uL Eos # (Auto) 0.01 (0-0.5) K/uL Baso # (Auto) 0.01 (0-0.2) K/uL Immature Gran # (Auto) 0.12 H (0.00-0.02) K/uL Sodium 137 (136-145) mmol/L Potassium 3.3 L (3.5-5.1) mmol/L Chloride 103 (98-107) mmol/L Carbon Dioxide 28 (21-32) mmol/L Anion Gap 6.0 (3-11) BUN 28 H (7-18) mg/dl Creatinine 0.83 (0.6-1.4) mg/dl Est Cr Clr Drug Dosing 53.5 ml/min Est GFR ( Amer) 91.1 Est GFR (Non-Af Amer) 78.6 BUN/Creatinine Ratio 33.3 H (10-20) Glucose 106 H (70-99) mg/dl Calcium 8.6 (8.5-10.1) mg/dl Total Bilirubin 4.5 H (0.2-1) mg/dl AST 387 H (15-37) U/L ALT 484 H (12-78) U/L Alkaline Phosphatase 220 H (45-117) U/L Troponin I 0.046 H* (0-0.045) ng/ml Total Protein 6.3 L (6.4-8.2) gm/dl Albumin 3.2 L (3.4-5.0) gm/dl Globulin 3.1 (2.5-4.0) gm/dl Albumin/Globulin Ratio 1.0 (0.9-2) TSH 0.884 (0.300-4.500) uIu/ml Nasal Screen MRSA (PCR) (Negative) COVID-19 Eval Order [facility]Rsv at [facility] SARS-CoV-2 (PCR) (Negative) Influenza Type A (PCR) (Neg) Influenza Type B (PCR) (Neg) RSV (RT-PCR) (Neg) 12/08/20 12/08/20 Range/Units 18:54 21:25 WBC (4.8-10.8) K/uL RBC (4.7-6.1) M/uL Hgb (14.0-18.0) g/dL Hct (42-52) % MCV (80-100) fL MCH (25-34) pg MCHC (32-36) g/dL RDW Std Deviation (36.4-46.3) fL RDW Coeff of Diana (11.5-14.5) % Plt Count (130-400) K/uL MPV (7.4-10.4) fL Immature Gran % (Auto) % Neut % (Auto) % Lymph % (Auto) % [facility] % (Auto) % Eos % (Auto) % Baso % (Auto) % Neut # (Auto) (1.4-6.5) K/uL Lymph # (Auto) (1.2-3.4) K/uL [facility] # (Auto) (0.11-0.59) K/uL Eos # (Auto) (0-0.5) K/uL Baso # (Auto) (0-0.2) K/uL Immature Gran # (Auto) (0.00-0.02) K/uL Sodium (136-145) mmol/L Potassium (3.5-5.1) mmol/L Chloride (98-107) mmol/L Carbon Dioxide (21-32) mmol/L Anion Gap (3-11) BUN (7-18) mg/dl Creatinine (0.6-1.4) mg/dl Est Cr Clr Drug Dosing ml/min Est GFR ( Amer) Est GFR (Non-Af Amer) BUN/Creatinine Ratio (10-20) Glucose (70-99) mg/dl Calcium (8.5-10.1) mg/dl Total Bilirubin (0.2-1) mg/dl AST (15-37) U/L ALT (12-78) U/L Alkaline Phosphatase (45-117) U/L Troponin I (0-0.045) ng/ml Total Protein (6.4-8.2) gm/dl Albumin (3.4-5.0) gm/dl Globulin (2.5-4.0) gm/dl Albumin/Globulin Ratio (0.9-2) TSH (0.300-4.500) uIu/ml Nasal Screen MRSA (PCR) Negative (Negative) COVID-19 Eval Order SARS-CoV-2 (PCR) NEGATIVE (Negative) Influenza Type A (PCR) Negative (Neg) Influenza Type B (PCR) Negative (Neg) RSV (RT-PCR) Negative (Neg) Administered Medications Miscellaneous Information (Piperacill/Tazobac Consult Active) 1 ea N/A UD PRN PRN Reason: Consult Stop: 01/07/21 19:35 Last Admin: 12/08/20 22:11 Dose: 1 ea Documented by: [id number] Discontinued Medications Albuterol (Albuterol Hfa 8 Gm Inhaler) 2 puffs INH NOW ONE Stop: 12/08/20 19:03 Last Admin: 12/08/20 19:45 Dose: 2 puffs Documented by: [id number] Albuterol (Albut/Ipratrop 3mg/0.5mg Neb 3 Ml Vial) 6 ml NEB NOW STA Stop: 12/08/20 19:50 Last Admin: 12/08/20 20:22 Dose: 6 ml Documented by: [id number] Sodium Chloride (Nss 1000ml) 1,000 mls @ 999 mls/hr IV .Q1H1M GAURI Stop: 12/08/20 19:45 Last Admin: 12/08/20 19:02 Dose: Not Given Documented by: [id number] Magnesium Sulfate/Dextrose (Magnesium Sulfate / D5w) 1 gm in 100 mls @ 100 mls/hr IV NOW STA Stop: 12/08/20 20:01 Last Infusion: 12/08/20 21:00 Dose: 0 mls/hr Documented by: [id number] Admin: 12/08/20 19:45 Dose: 100 mls/hr Documented by: [id number] Piperacillin Sod/Tazobactam Sod (Zosyn) 4.5 gm in 120 mls @ 240 mls/hr IV NOW ONE Stop: 12/08/20 20:05 Last Infusion: 12/08/20 21:56 Dose: 0 mls/hr Documented by: [id number] Admin: 12/08/20 21:17 Dose: 240 mls/hr Documented by: [id number] Sodium Chloride (Nss 1000ml) 500 mls @ 999 mls/hr IV .Q31M ONE Stop: 12/08/20 22:28 Last Infusion: 12/08/20 22:47 Dose: 0 mls/hr Documented by: [id number] Admin: 12/08/20 22:11 Dose: 999 mls/hr Documented by: [id number] Ioversol (Ioversol 100ml) 93 ml IV ONCE ONE Stop: 12/08/20 20:51 Last Admin: 12/08/20 20:50 Dose: 93 ml Documented by: [id number] Methylprednisolone (Methylprednisolone 40 Mg/Ml Vial) 40 mg IV NOW STA Stop: 12/08/20 19:03 Last Admin: 12/08/20 19:45 Dose: 40 mg Documented by: [id number] Imaging Data Radiologist's Impression: Chest X-Ray 12/08/20 18:32 SINGLE VIEW CHEST CLINICAL HISTORY: Generalized weakness. FINDINGS: An AP, portable, upright chest radiograph is compared to study dated 04/20/2020 and correlated with chest CT dated 05/08/2018. The examination is degraded by portable technique and patient rotation. The heart is enlarged and there is atherosclerotic calcification of the thoracic aorta. The pulmonary vasculature is noncongested. Prominence of the central pulmonary vessels likely represents pulmonary artery hypertension. Emphysema and chronic interstitial thickening are similar to previous. Foci of parenchymal scarring/atelectasis are seen throughout both lungs. There is no evidence of superimposed airspace consolidation or large pleural effusion. There is no pneumothorax. The skeletal structures are osteopenic. Degenerative change is noted throughout the thoracic spine and in the shoulders. IMPRESSION: Cardiomegaly and emphysema with no acute cardiopulmonary abn ormality. Electronically signed by: Vince Schwartz M.D. 12/08/2020 7:[address] 12/08/20 18:33 CT SCAN OF THE CERVICAL SPINE CLINICAL HISTORY: Fall. COMPARISON STUDY: No priors. TECHNIQUE: CT scan of the cervical spine is performed from the skull base to the upper thoracic spine. Images are reviewed in the axial, sagittal, and coronal planes. IV contrast was not administered for this examination. A dose lowering technique was utilized adhering to the principles of ALARA. CT DOSE: 1226.66 mGy.cm FINDINGS: Skeletal structures: The skeletal structures are osteopenic. There is no evidence of fracture or subluxation involving the cervical spine. Vertebral body height and alignment are maintained. Anterior osteophytes are seen throughout. The odontoid process and lateral masses are intact. The atlantoaxial articulation is preserved noting advanced productive degenerative change. The spinous processes appear intact. There is moderate to advanced multilevel cervical spondylosis. Uncovertebral and facet arthropathy contribute to neural foraminal stenosis at most levels. Intervertebral discs: There is moderate to advanced disc space narrowing seen at C4-C5, C5-C6, and C6-C7. Mild to moderate disc space narrowing is seen at the remaining cervical levels. Central canal: Posterior disc osteophyte complexes are seen at all levels from C3 -C4 through C6-C7. This likely contributes to multilevel acquired compromise of the central canal. Soft tissues: The prevertebral and paraspinous soft tissues are within normal limits. Calvarium: The visualized calvarium at the skull base appears intact. Brain parenchyma: Partially visualized brain parenchyma at the skull base is within normal limits. Mastoids: The mastoid air cells are well pneumatized. Lung apices: Clear as visualized. IMPRESSION: 1. There is no evidence of fracture or subluxation involving the cervical spine. 2. Osteopenia and spondylotic change as above. ACT 112: Negative or not required by law. Electronically signed by: Vince Schwartz M.D. 12/08/2020 7:[address] 12/08/20 18:33 CT SCAN OF THE BRAIN WITHOUT IV CONTRAST CLINICAL HISTORY: Fall. COMPARISON STUDY: CT of the brain dated 11/12/2007. TECHNIQUE: Unenhanced axial CT scan of the brain is performed from the vertex to the skull base. A dose lowering technique was utilized adhering to the principles of ALARA. FINDINGS: Brain parenchyma: There are age-related involutional changes noting advanced s ubcortical and periventricular microangiopathic change. There is no hemorrhage, mass effect, or evidence of acute territorial ischemia by CT criteria. Sanderson- white matter differentiation is preserved. No extra-axial fluid collection is seen. Ventricles, sulci, cisterns: Prominent secondary to involutional change. Intracranial vasculature: There is atherosclerotic calcification of the cavernous carotid and vertebral arteries. Calvarium: The skeletal structures are osteopenic. No depressed calvarial fracture is identified. Sinuses and mastoids: The visualized paranasal sinuses are clear. The mastoid air cells are well pneumatized. Orbits: The bony orbits are grossly intact. There are bilateral ocular lens implants. IMPRESSION: There is no hemorrhage, mass effect, or evidence of acute territorial ischemia by CT criteria. ACT 112: Negative or not required by law. Electronically signed by: Vince Schwartz M.D. 12/08/2020 7:24 PM Abdomen/Pelvis CT 12/08/20 20:13 CT SCAN OF THE ABDOMEN AND PELVIS WITH IV CONTRAST CLINICAL HISTORY: Hyperbilirubinemia. COMPARISON STUDY: Abdominal CT dated 11/14/2007. TECHNIQUE: Following the IV administration of 93 cc of Optiray 320, CT scan of the abdomen and pelvis is performed from the lung bases to the proximal femora. Images are reviewed in the axial, sagittal, and coronal planes. IV contrast was administered without complication. A dose lowering technique was utilized adhering to the principles of ALARA. CT DOSE: 247.67 mGy.cm FINDINGS: Lung bases: The heart is enlarged and without pericardial effusion. Aneurysmal dilatation of the ascending thoracic aorta is partially visualized. This measures up to 4.5 cm. There is bibasilar scarring/atelectasis, greatest at the right lung base. No airspace consolidation or pleural effusion is identified. There is a small hiatal hernia. Liver: The contrast-enhanced liver is normal in size, contour, and attenuation. There is no intrahepatic biliary ductal dilatation. The hepatic veins and portal veins are patent. Gallbladder: The gallbladder is distended. The gallbladder wall appears thickened and there is mild pericystic infiltration. Question a calcified gallstone within the common bile duct on image #[id number]. Spleen: Normal in size and attenuation. Pancreas: Moderately atrophic and grossly unremarkable. Adrenal glands: Unremarkable. Kidneys: The contrast enhanced kidneys demonstrate cortical atrophy and are without hydronephrosis. The kidneys enhance symmetrically. Abdominal vasculature: The abdominal aorta is normal in course and caliber noting moderate atherosclerotic calcification. Bowel: No bowel obstruction is identified. There is moderate constipation. There is mild to moderate colonic diverticulosis without CT evidence of acute diverticulitis. The appendix is not visualized. Peritoneum: There is no intraperitoneal free air or abdominal ascites. Lymphadenopathy: None. Pelvic viscera: The prostate gland is diminutive and heterogeneous. The bladder is normal as visualized. A left inguinal hernia contains a nonobstructed segment of colon. Skeletal structures: The skeletal structures are osteopenic. There is moderate to advanced lumbosacral spondylosis. There is a chronic compression deformity of T12. No lytic or blastic lesions are seen. IMPRESSION: 1. Findings are concerning for acute cholecystitis and clinical correlation will be required. If necessary a right upper quadrant ultrasound could be considered for further assessment. 2. Question a calcified gallstone within the common bile duct. 3. Cardiomegaly with aneurysmal dilatation of the ascending thoracic aorta. This is partially visualized and measures up to 4.5 cm. 4. Mild to moderate colonic diverticulosis without CT evidence of acute diverticulitis. 5. A left inguinal hernia contains a small segment of colon. 6. Additional findings as above. ACT 112: Negative or not required by law. Electronically signed by: Vince Schwartz M.D. 12/08/2020 9:15 PM Discharge Plan Visit Data Chief Complaint: Fall Stated Complaint: FALL ED Provider: Oj Corrales Discharge Problem: Ascending cholangitis, COPD (chronic obstructive pulmonary disease), Fall, Skin tear Forms Stand Alone Forms: [employer] [facility] Prescriptions Prescriptions: No Action albuterol sulfate [ProAir HFA] 90 mcg/actuation HFA aerosol inhaler 2 puff INH Q4H PRN (Reason: shortness of breath) Qty: 18 RF: 3 finasteride 5 mg tablet 5 mg PO DAILY Qty: 90 RF: 3 furosemide 20 mg tablet 20 mg PO BID Qty: 180 RF: 3 ipratropium-albuterol 0.5 mg-3 mg(2.5 mg base)/3 mL solution for nebulization 3 ml INH Q4H PRN (Reason: wheezing or shortness of breath) Qty: 360 RF: 11 (DME) nebulizer accessories Misc See Rx Instructions .ROUTE .MEDSUPPLY Qty: 1 RF: 0 ergocalciferol (vitamin D2) 2,000 unit tablet 2,000 units PO DAILY RF: 0 mecobalamin (vitamin B12) 1,000 mcg tablet,chewable 1,000 mcg PO DAILY RF: 0 budesonide-formoterol 160-4.5 mcg/actuation HFA aerosol inhaler 2 puff INHALATION BID RF: 0 Discharge Problem: COPD (chronic obstructive pulmonary disease) Qualifiers: COPD type: unspecified COPD Qualified Code(s): J44.9 - Chronic obstructive pulmonary disease, unspecified Fall Qualifiers: Encounter type: initial encounter Qualified Code(s): W19.XXXA - Unspecified fall, initial encounter
[2020-12-09 00:13] LABS: Appearance Urine Clear (Clear); Bacteria Urine Automated Negative (Negative); Blood Urine Negative (Negative); Color Urine Dark Yellow; Glucose Urine UA Negative (Negative); Ketones Urine 2+ (Negative); Leukocyte Esterase Urine Negative (Negative); Nitrite Urine Positive (Negative); Protein Urine Trace (Negative); Specific Gravity Urine 1.045 (1.000-1.030); Urobilinogen Urine Positive (Negative); pH Urine 6.5 (4.5-7.5)
[2020-12-09 00:18] LABS: Bilirubin Urine 2+ (Negative)
[2020-12-09] MEDS ORDERED: ONDANSETRON INJ 2 MG/ML 2 ML VIAL IV PRN (01:15)
[2020-12-09] MEDS ORDERED: MoRPHine SULFATE 2 MG/ML CARP IV PRN (01:15)
[2020-12-09] MEDS ORDERED: PIPERACILL/TAZOBAC CONSULT ACTIVE PRN (01:15)
[2020-12-09] MEDS ORDERED: ACETAMINOPHEN 325 MG TAB PO PRN (01:15)
[2020-12-09] MEDS ORDERED: MoRPHine SULFATE 4 MG/ML 1 ML CARP\\VIAL IV PRN (01:15)
[2020-12-09] MEDS: LACTATED RINGER'S 1,000 ML IV SCH ×2 (01:40→18:25)
[2020-12-09] MEDS: PIPERACILLIN/TAZOBACTAM 3.375 GM in DEXTROSE 5% 100 ML IV SCH ×3 (02:22→18:17)
--- NOTE | 2020-12-09 04:26 | Billing Data ---
Date of Service December 09, 2020 Coding Level of Care Code 87992 Initial Inpt Care Lvl 3
--- NOTE | 2020-12-09 07:43 | Magnetic Resonance Report ---
MRCP CLINICAL HISTORY: herminio, hyperbili, ?choledocholelithiasis TECHNIQUE: Utilizing a 1.5 Mandy magnet and dedicated coil, multiplanar, multiecho imaging of the [facility] er abdomen was performed utilizing heavily T2 weighted pulsing sequences without IV contrast. COMPARISON STUDY: CT of the abdomen and pelvis December 08, 2020. FINDINGS: This exam is moderately compromised by respiratory motion artifact. Multiple gallstones wit hin the gallbladder are noted. The gallbladder is mildly distended. There is trace pericholecystic fl uid is mild gallbladder wall thickening. No biliary ductal dilatation is noted. The common bile duct measures 5 mm in caliber. Sensitivity for detection of common bile duct calculi is diminished on this exam but none are identified. There is no peripancreatic infiltration or fluid. There is no hydronep hrosis. No hepatic lesions are identified on this unenhanced examination. Cardiomegaly and dilatation of the visualized portions of the ascending aorta are again noted, as shown on CT. Sensitivity for d etection of a pancreatic mass is diminished on this unenhanced exam but none are identified. IMPRESSION: 1. No biliary ductal dilatation. Sensitivity for detection of common bile duct calculi significantly diminished on this exam due to motion artifact but none identified. 2. Cholelithiasis, mild gallbladder distention and trace pericholecystic fluid with gallbladder wall thickening. These findings may reflect acute cholecystitis. ACT 112: Negative or not required by law. Electronically signed by: Mike John M.D. 12/09/2020 7:41 AM
[2020-12-09] MEDS: ALBUTEROL HFA 8 GM INHALER INH PRN ×2 (07:48→11:31)
[2020-12-09 08:42] LABS: Hematocrit (blood only) 31.6 % (42-52); Hemoglobin 10.9 g/dL (14.0-18.0); Immature Granulocytes # (auto) 0.03 K/uL (0.00-0.02); Immature Granulocytes % (auto) 0.2 %; Lymphocytes # (auto) 0.24 K/uL (1.2-3.4); Lymphocytes % (auto) 1.6 %; Mean Corpuscular Hemoglobin 34.5 pg (25-34); Mean Corpuscular Hgb Conc 34.5 g/dL (32-36); Mean Platelet Volume 7.9 fL (7.4-10.4); Monocytes # (auto) 0.33 K/uL (0.11-0.59); Monocytes % (auto) 2.1 %; Neutrophils # (auto) 14.79 K/uL (1.4-6.5); Neutrophils % (auto) 96.1 %; Platelet Count 233 K/uL (130-400); RDW Coefficient of Variation 14.5 % (11.5-14.5); RDW Standard Deviation 53.2 fL (36.4-46.3); Red Blood Count 3.16 M/uL (4.7-6.1); White Blood Count 15.39 K/uL (4.8-10.8)
[2020-12-09 09:10] LABS: Albumin Level 2.5 gm/dl (3.4-5.0); Calcium 8.1 mg/dl (8.5-10.1); Creatinine Clr Calc Pharmacy 70.5 ml/min; Potassium 3.2 mmol/L (3.5-5.1)
[2020-12-09 09:17] LABS: Albumin Globulin Ratio 0.9 (0.9-2); Bilirubin,Total 1.9 mg/dl (0.2-1); Globulin 2.8 gm/dl (2.5-4.0); Total Protein 5.3 gm/dl (6.4-8.2); Troponin I 0.067 ng/ml (0-0.045)
[2020-12-09] MEDS: CYANOCOBALAMIN 500 MCG TABLET (VITAMIN B-12) PO SCH (09:19)
[2020-12-09] MEDS: FLUTICASONE/VILANTEROL 100/25MCG 14 PUFFS/INHALER INH SCH (09:19)
[2020-12-09] MEDS: FINASTERIDE 5 MG TAB PO SCH (09:19)
--- NOTE | 2020-12-09 09:19 | Medical Student Progress Note ---
Date of Service December 09, 2020 Assessment & Plan (1) Cholecystitis: Patient is an 89 year old male with PMHx of COPD, Dementia, BPH, and macrocytic anemia currently on HOD1 after admission following a fall at home. CT scan and MRCP done in the ER showed evidence of cholecystitis. Patient is recuperating on the hospital floor, currently on IV abx and fluids and is scheduled for subsequent ERCP and possible cholecystectomy. Acute Cholecystitis - Although patient denies any fever, RUQ pain or nausea, he does acknowledge vomiting twice in the past 4 days. - WBC is 15.39, down from 20.65 at admission - Bilirubin is 1.9, down from 4.5 - AST is 202, down from 387 - ALT is 331, down from 484 - ALP is 193, down from 220 - BUN/Cr > 20 - CT Abd/Pelvis and MRCP showed changes consistent with acute cholecystitis without evidence of common bile duct dilation Patient started on Zosyn in ED, will continue with Zosyn NPO, LR 80ml/hr x2L Zofran PRN nausea Morphine PRN pain, although patient is in no pain - Surgery consulted in ED ERCP prior to likely cholecystectomy - GI consulted for possible ERCP Scheduled for later today Fall - Patient's recent wellness visit notes suggests worsening falls as patient's Dementia has worsened. - Head CT, Cervical Spine CT revealed no pathology. PT/OT should be started following ERCP and cholecystectomy Followup with PT/OT outpatient after discharge Neurology outpatient follow up Elevated Troponin - Patient troponin is 0.067 up from 0.046 - Presence of cardiomegaly on CT scan and X-ray - Echo showed normal LV size with preserved EF. No concerning findings were noted Repeat Troponin has been ordered Ascending Aortic Aneurysm - Evidence of 4.5 cm ascending aortic aneurysm Consider outpatient followup with PCP COPD - Patient has a >40 year smoking history as well as prior diagnosis of COPD - Patient acknowledges episodes of SOB at home which haven't worsened since admission - Received breathing treatments and 40mg IV Methylprednisolone in the ED Continue home Breo Ellipta Albuterol PRN Duoneb PRN BPH - Continue home Finasteride Macrocytic Anemia - Hgb is 10.9, down from 12.7 at admission - Hct is 31.6, down from 37.3 at admission - RBC is 3.16, down from 3.67 at admission - MCV is 100, down from 101.6 at admission - Patient has a >40 year history of alcoholism and appears malnourished Peripheral Blood Smear + Folate levels have been ordered with morning labs. Dispo: Med/Surg for IVF, IV antibiotics, cholecystectomy and ERCP. Will likely require rehab placement after discharge. FEN: NPO, LR 80ml/hr x2L, K+ is 3.2 down from 3.3 yesterday. DVT: SCDs Code: DNR/DNI Admission and Anticipated Discharge Date Admission Date: December 08, 2020 Supervising Attestation Medical Student Supervision Note: I was personally present during medical student patient encounter and independently interviewed and examined the patient and verified the anand history and physical, reviewed labs and image studies, discussed the case with Johan Suarez and agree with the findings and care plan. Acute cholecytitis - for ERCP prior to cholecystitis continue IVF, NPO. replace K Subjective Patient is an 89 y/o M with a PMH of dementia, falls, knee effusions, knee arthritis currently on HOD1 after admission following a fall. Patient states being in his usual state of health until yesterday when he fell down trying to ambulate. He states he hit his head and shoulder on the floor but denies any loss of consciousness or headache after impact. Patient's tried to get him off the floor to no avail prompting her to call the ambulance which brought the patient to the ER. At the ER, Chest X-ray was done which showed evidence of cardiomegaly and emphysema. CT scan of head showed no evidence of hemorrhage or mass effect and CT cervical spine revealed evidence of osteopenia & spondylotic changes but no evidence of fracture or subluxation. A CT scan of the abdomen and pelvis was don e which showed cardiomegaly as well as a 4.5 cm ascending aortic aneurysm, mild left colonic diverticulosis, left inguinal hernia and evidence of cholecystitis. LFTs were performed which showed increased levels and patient subsequently had an MRCP done which showed cholelithiasis, mild gallbladder wall thickening consistent with cholecystitis. Common bile duct was not dilated. Patient states that he has not experienced any abdominal pain however he does acknowledge vomiting twice in the past 4 days which is unusual for him. These episodes weren't related to feeding or any specific trigger he can think off. Since admission, patient has been using an albuterol inhaler fo episodes fo shortness of breath. He states he has a long history of asthma and was recently switched from his regular home albuterol to another nebulizer which he can't remember the name because his lead sprinkler believed he was using his albuterol inhaler too frequently. ROS: Patient denies any hallucinations, headache, fever, shortness of breath, chest pain, palpitation, dizziness, weakness, leg pain, arm pain, constipation, dysuria, hematuria, hematemesis, hematochezia. Patient does acknowledge straining to urinate on some occasions and well as knee pain when he ambulates. Review of Systems Review of Systems: All systems reviewed & are unremarkable except as noted in HPI & below Physical Exam Constitutional: + thin and cooperative no acute distress Eyes: PERRL, conjunctivae normal, anicteric sclerae Respiratory: normal respiratory effort, lungs clear to auscultation Cardiovascular: RRR, no murmur, no edema Gastrointestinal (Abdomen): normal bowel sounds, soft, nontender, no hepatosplenomegaly Musculoskeletal: no cyanosis or clubbing, extremities motor strength 5/5 Head/Neck/Chest: + head abnormal to inspection (abrasion on his forehead as well as dried blood around his mouth) Shoulder: + shoulder abnormal to inspection (presence of abrasion on his left shoulder) Neurologic: PERRL, EOMI, accommodation nl, no face palsy, no dysarthria normal touch/pain/proprioception, CN's II-XI intact bilaterally, moves all extremities and awake Cranial Nerves: no nystagmus no evidence of tremors Results & Data ([facility]) Vital Signs (Past 12 Hours) Vital Signs Temp Pulse Pulse Pulse Resp BP BP 12/09/20 07:17 36.6 C 77 16 107/61 12/09/20 01:25 36.6 C 78 20 12/09/20 00:09 91 H 16 138/65 12/08/20 23:50 90 16 12/08/20 21:50 102 H 25 H 12/08/20 21:40 104 H 32 H 12/08/20 21:30 104 H 32 H 139/81 12/08/20 21:20 106 H 35 H 12/08/20 21:16 111 H 32 H 12/08/20 21:00 106 H 15 145/76 H 12/08/20 20:59 105 H 36 H 147/76 H 12/08/20 20:58 BP Pulse Ox 12/09/20 07:17 94 12/09/20 01:25 137/77 95 12/09/20 00:09 96 12/08/20 23:50 128/62 96 12/08/20 21:50 12/08/20 21:40 12/08/20 21:30 12/08/20 21:20 96 12/08/20 21:16 12/08/20 21:00 95 12/08/20 20:59 95 12/08/20 20:58 95
[2020-12-09] MEDS ORDERED: POTASSIUM CHLORIDE CRTAB 20 MEQ TABCR PO STA (09:46)
[2020-12-09] MEDS ORDERED: INDOMETHACIN 50 MG SUPP PR ONE ×2 (10:04→15:07)
[2020-12-09] MEDS: POTASSIUM CHLORIDE / WTR 10 MEQ/100 ML PLCT IV SCH ×4 (10:17→14:54)
--- NOTE | 2020-12-09 10:48 | Gastrointestinal Consultation ---
Date of Consultation December 09, 2020 Assessment & Plan (1) Ascending cholangitis: (2) Cholecystitis: (3) Fall: Pt is a 89 y/o male presented after a fall, on eval noted to have increased WBC and LFTs. Abd imaging concerning for cholecystitis w possible CBD stone; likely has cholangitis as well. He is w/o abd pain but did have vomiting in the last 4 days. No jaundice on presentation, abd exam benign. - Keep NPO; plan for ERCP in OR by Dr. Pruitt today - Will ask anesthesia (Dr. Thapa) to eval prior to ERCP. Elevated Troponin but w/o cardiac symptoms and no significant changes in EKG. ? demand ischemia - Continue Zosyn IV - Trend LFTs - Check CK Supervising Physician Co-Signing Physician Notes I saw and evaluated the patient. He has noted having intermitant abdominal pain / emesis over the last few days and had presented with elevated liver tests / jaundice and a significant leukocytosis. PE: Elederly mass / mild distress RUQ tender Impression: patient with suspected cholangitis, will proceed with ERCP this afternoon. We have discussed the risks to include bleeding, infection, perforation, pain, pancreatitis, and failed biliary cannulation. History of Present Illness Reason for Consultation: Choledocholithiasis Requesting Physician: Dr. Nemo Andrade Attending Physician: Dr. Arnav Pruitt History of Present Illness Pt is a 89 y/o male who presented after a fall yesterday. Reports he had tripped but denies dizziness, weakness. Head CT w/o acute changes. On eval, he is also noted to have elevated WBC (20) and LFTs: Tbili 4.5, AST/ALT 300s, Alk phose 200s. Lipase normal. CT abd/pelvis w contrast concerning for cholecystitis and calcified CBD stone. F/U MRCP quality diminished due to motion artifact but showed no sign of biliary ductal dilation. Pt denies abd pain however did have vomiting in the last 4 days. No fever, chills, CP, SOB symptoms. Denies any new meds/antibx, sick contact Denies known hx of liver dz Stopped tobacco and ETOH products 5 yrs ago Allergies Allergy/AdvReac Type Severity Reaction Status Date / Time No Known Allergies Allergy Verified 12/08/20 19:43 Home Medications Medication Instructions Recorded Confirmed Type ergocalciferol (vitamin D2) 50 mcg 2,000 units PO DAILY 11/17/19 12/08/20 Histor y (2,000 unit) tablet mecobalamin (vitamin B12) 1,000 1,000 mcg PO DAILY 11/17/19 12/08/20 History mcg chewable tablet albuterol sulfate 90 mcg/actuation 2 puff INH Q4H PRN #18 gm 09/09/20 12/08/20 Rx aerosol inhaler finasteride 5 mg tablet 5 mg PO DAILY #90 tab 10/29/20 12/08/20 Rx ipratropium 0.5 mg-albuterol 3 mg 3 ml INH Q4H PRN #360 ml 11/25/20 12/08/20 Rx (2.5 mg base)/3 mL nebulization soln nebulizer accessories #1 ea 11/25/20 12/08/20 Rx furosemide 20 mg tablet 20 mg PO BID #180 tab 12/01/20 12/08/20 Rx budesonide-formoterol 2 puff INHALATION BID 12/08/20 12/08/20 History Patient History Medical History (Updated 12/09/20 @ 13:58 by Johan Suarez) 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 COPD (chronic obstructive pulmonary disease) Degenerative arthritis of knee, bilateral Dementia H/O hearing loss H/O squamous cell carcinoma H/O varicose veins H/O vitamin D deficiency History of basal cell carcinoma Venous insufficiency Surgical History H/O repair of rotator cuff H/O thoracic aortic aneurysm repair History of lithotripsy History of tooth extraction Hx of cataract surgery Hx of colonoscopy Family History Mother Acquired amyotrophic lateral sclerosis Father Throat cancer Laryngeal cancer Denies family history of Prostate cancer Social History Smoking Status: Former smoker Tobacco Type: Pipe Second Hand Exposure: No; Do You Dip or Chew Tobacco: No; Tobacco Cessation Education Requested by Patient: No Hx Alcohol Use: Yes Alcohol type: beer Hx Substance Use: No Preferred Language: Beninese Communication Ability: Effective Visual Impairment: Limited Hearing Ability: Hard of Hearing 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 Other Information That Helps Us Care for You: No Feels Safe at Home: Yes Safety Concerns: Feels Safe At This Time Childhood Exposure to Second-Hand Smoke: Yes caffeine: Yes Dental Care, Regularly: Yes Physical Activity Frequency: Does not Exercise Seatbelt Use: always Sunscreen Use: No (does not go outside) Assistive Devices: Glasses Review of Systems Review of Systems: All systems reviewed & are unremarkable except as noted in HPI & below Physical Exam Constitutional: WD/WN, vitals as above well groomed, cooperative and comfortable Eyes: PERRL, conjunctivae normal, anicteric sclerae ENMT: external ear and nose normal, oropharynx normal Respiratory: normal respiratory effort, lungs clear to auscultation Cardiovascular: RRR, no murmur, no edema Gastrointestinal (Abdomen): normal bowel sounds, soft, nontender, no hepatosplenomegaly Skin: no rashes, warm and dry no jaundice Laceration over L head Psychiatric: A+Ox3, euthymic affect Lymphatic: no lymphedema Results & Data ([facility]) Vital Signs (Past 12 Hours) Vital Signs Temp Pulse Pulse Pulse Resp BP BP 12/09/20 07:17 36.6 C 77 16 107/61 12/09/20 01:25 36.6 C 78 20 12/09/20 00:09 91 H 16 138/65 12/08/20 23:50 90 16 BP Pulse Ox 12/09/20 07:17 94 12/09/20 01:25 137/77 95 12/09/20 00:09 96 12/08/20 23:50 128/62 96 (1) Fall Encounter type: initial encounter Qualified Code(s): W19.XXXA - Unspecified fall, initial encounter
--- NOTE | 2020-12-09 12:39 | Surgery Consultation ---
Date of Consultation December 09, 2020 Assessment & Plan (1) Ascending cholangitis: 89 year-old male s/p fall after tripping who presented to ED and found to have leukocytosis, tachycardia and tachypneic in the ED with elevated t. bili, lfts, alk phos and CT scan concerning for acute cholecystitis and choledocholithiasis. Concern for ascending cholangitis given leukocytosis. Abdominal examination is benign with no abdominal pain as presenting issues but with a few days of vomiting Plan: Discussed with GI who is planning for ERCP today Will determine timing of cholecystectomy either Sunday or Sunday depending on ERCP timing. Dr. Paula does not want to do tandem procedure given his age and prolonged anesthesia. Continue current management: IV fluids, IV Zosyn, pain management as needed NPO status for planned ERCP continue medical management (2) Cholecystitis: (3) Fall: Dr. Paula has seen patient and present during my examination. Agrees with above. History of Present Illness Reason for Consultation: Cholecystitis Requesting Physician: Chas Diop MD Attending Physician: Estephanie Ramírez MD History of Present Illness Mr. Ventura is a very pleasant 89 year-old male who presented to hospital after a fall. He states he tripped. Denies of any dizziness or lightheadedness that caused the fall. ER work-up showed leukocytosis of 20K and CT scan was concerning for acute cholecystitis and questionable calcified CBD stone. MRCP was limited but did not show any choledocholithiasis. His t. bili was elevated at 4.5 and LFTS elevated in 300-400 and Alk phos elevated at 220. Our services consulted for cholecystitis. Bryant states that he has not had any abdominal pain but vomited in the last few days. Denies of abdominal pain postprandial. Denies of any history of gallbladder problems or known gallstones. Denies of prior history of abdominal surgery. Not on any blood thinning agents. Allergies Allergy/AdvReac Type Severity Reaction Status Date / Time No Known Allergies Allergy Verified 12/08/20 19:43 Home Medications Medication Instructions Recorded Confirmed Type ergocalciferol (vitamin D2) 50 mcg 2,000 units PO DAILY 11/17/19 12/08/20 History (2,000 unit) tablet mecobalamin (vitamin B12) 1,000 1,000 mcg PO DAILY 11/17/19 12/08/20 History mcg chewable tablet albuterol sulfate 90 mcg/actuation 2 puff INH Q4H PRN #18 gm 09/09/20 12/08/20 Rx aerosol inhaler finasteride 5 mg tablet 5 mg PO DAILY #90 tab 10/29/20 12/08/20 Rx ipratropium 0.5 mg-albuterol 3 mg 3 ml INH Q4H PRN #360 ml 11/25/20 12/08/20 Rx (2.5 mg base)/3 mL nebulization soln nebulizer accessories #1 ea 11/25/20 12/08/20 Rx furosemide 20 mg tablet 20 mg PO BID #180 tab 12/01/20 12/08/20 Rx budesonide-formoterol 2 puff INHALATION BID 12/08/20 12/08/20 History Patient History Medical History 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 COPD (chronic obstructive pulmonary disease) Degenerative arthritis of knee, bilateral H/O hearing loss H/O squamous cell carcinoma H/O varicose veins H/O vitamin D deficiency History of basal cell carcinoma Venous insufficiency Surgical History H/O repair of rotator cuff H/O thoracic aortic aneurysm repair History of lithotripsy History of tooth extraction Hx of cataract surgery Hx of colonoscopy Family History Mother Acquired amyotrophic lateral sclerosis Father Throat cancer Laryngeal cancer Denies family history of Prostate cancer Social History Smoking Status: Former smoker Tobacco Type: Pipe Second Hand Exposure: No; Do You Dip or Chew Tobacco: No; Tobacco Cessation Education Requested by Patient: No Hx Alcohol Use: Yes Alcohol type: beer Hx Substance Use: No Preferred Language: Divehi Communication Ability: Effective Visual Impairment: Limited Hearing Ability: Hard of Hearing 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 [employer] Other Information That Helps Us Care for You: No Feels Safe at Home: Yes Safety Concerns: Feels Safe At This Time Childhood Exposure to Second-Hand Smoke: Yes caffeine: Yes Dental Care, Regularly: Yes Physical Activity Frequency: Does not Exercise Seatbelt Use: always Sunscreen Use: No (does not go outside) Assistive Devices: Walker Review of Systems Review of Systems: All systems reviewed & are unremarkable except as noted in HPI & below Physical Exam Constitutional: well developed and well nourished; no acute distress multiple bruises on head and upper extremities Respiratory: normal respiratory effort, lungs clear to auscultation no respiratory distress and no labored breathing Gastrointestinal (Abdomen): Inspection/Auscultation: abdomen normal to inspection; abdomen not distended Percussion/Palpation: abdomen soft; abdomen nontender, no guarding and abdomen not rigid Skin: no rashes, warm and dry no jaundice Psychiatric: A+Ox3, euthymic affect Results & Data ([facility]) Vital Signs (Past 12 Hours) Vital Signs Temp Pulse Resp BP BP Pulse Ox 12/09/20 07:17 36.6 C 77 16 107/61 94 12/09/20 01:25 36.6 C 78 20 137/77 95 Laboratory Results 12/09/20 12/09/20 12/09/20 Range/Units 07:56 07:56 07:56 WBC 15.39 H (4.8-10.8) K/uL RBC 3.16 L (4.7-6.1) M/uL Hgb 10.9 L (14.0-18.0) g/dL Hct 31.6 L (42-52) % MCV 100.0 (80-100) fL MCH 34.5 H (25-34) pg MCHC 34.5 (32-36) g/dL RDW Std Deviation 53.2 H (36.4-46.3) fL RDW Coeff of Diana 14.5 (11.5-14.5) % Plt Count 233 (130-400) K/uL MPV 7.9 (7.4-10.4) fL Immature Gran % (Auto) 0.2 % Neut % (Auto) 96.1 % Lymph % (Auto) 1.6 % Eaton % (Auto) 2.1 % Eos % (Auto) 0.0 % Baso % (Auto) 0.0 % Neut # (Auto) 14.79 H (1.4-6.5) K/uL Lymph # (Auto) 0.24 L (1.2-3.4) K/uL Eaton # (Auto) 0.33 (0.11-0.59) K/uL Eos # (Auto) 0.00 (0-0.5) K/uL Baso # (Auto) 0.00 (0-0.2) K/uL Immature Gran # (Auto) 0.03 H (0.00-0.02) K/uL Sodium 138 (136-145) mmol/L Potassium 3.2 L (3.5-5.1) mmol/L Chloride 104 (98-107) mmol/L Carbon Dioxide 27 (21-32) mmol/L Anion Gap 6.0 (3-11) BUN 23 H (7-18) mg/dl Creatinine 0.63 (0.6-1.4) mg/dl Est Cr Clr Drug Dosing 70.5 ml/min Est GFR ( Amer) 102.0 Est GFR (Non-Af Amer) 88.0 BUN/Creatinine Ratio 36.0 H (10-20) Glucose 131 H (70-99) mg/dl Calcium 8.1 L (8.5-10.1) mg/dl Total Bilirubin 1.9 H D (0.2-1) mg/dl AST 202 H (15-37) U/L ALT 331 H (12-78) U/L Alkaline Phosphatase 193 H (45-117) U/L Total Creatine Kinase 66 (39-308) U/L Troponin I 0.067 H* (0-0.045) ng/ml Total Protein 5.3 L (6.4-8.2) gm/dl Albumin 2.5 L (3.4-5.0) gm/dl Globulin 2.8 (2.5-4.0) gm/dl Albumin/Globulin Ratio 0.9 (0.9-2) Lipase (73-393) U/L TSH (0.300-4.500) uIu/ml Urine Color Urine Appearance (Clear) Urine pH (4.5-7.5) Ur Specific Jamieson (1.000-1.030) Urine Protein (Negative) Urine Glucose (UA) (Negative) Urine Ketones (Negative) Urine Blood (Negative) Urine Nitrite (Negative) Urine Bilirubin (Negative) Urine Urobilinogen (Negative) Ur Leukocyte Esterase (Negative) Urine WBC (Auto) (0-5) /hpf Urine RBC (Auto) (0-4) /hpf U Hyaline Cast (Auto) (0-5) /lpf U Epithel Cells (Auto) (0-5) /lpf Urine Bacteria (Auto) (Negative) Nasal Screen MRSA (PCR) (Negative) COVID-19 Eval Order SARS-CoV-2 (PCR) (Negative) Influenza Type A (PCR) (Neg) Influenza Type B (PCR) (Neg) RSV (RT-PCR) (Neg) 12/08/20 12/08/20 12/08/20 Range/Units 22:55 21:25 18:54 WBC (4.8-10.8) K/uL RBC (4.7-6.1) M/uL Hgb (14.0-18.0) g/dL Hct (42-52) % MCV (80-100) fL MCH (25-34) pg MCHC (32-36) g/dL RDW Std Deviation (36.4-46.3) fL RDW Coeff of Diana (11.5-14.5) % Plt Count (130-400) K/uL MPV (7.4-10.4) fL Immature Gran % (Auto) % Neut % (Auto) % Lymph % (Auto) % Eaton % (Auto) % Eos % (Auto) % Baso % (Auto) % Neut # (Auto) (1.4-6.5) K/uL Lymph # (Auto) (1.2-3.4) K/uL Eaton # (Auto) (0.11-0.59) K/uL Eos # (Auto) (0-0.5) K/uL Baso # (Auto) (0-0.2) K/uL Immature Gran # (Auto) (0.00-0.02) K/uL Sodium (136-145) mmol/L Potassium (3.5-5.1) mmol/L Chloride (98-107) mmol/L Carbon Dioxide (21-32) mmol/L Anion Gap (3-11) BUN (7-18) mg/dl Creatinine (0.6-1.4) mg/dl Est Cr Clr Drug Dosing ml/min Est GFR ( Amer) Est GFR (Non-Af Amer) BUN/Creatinine Ratio (10-20) Glucose (70-99) mg/dl Calcium (8.5-10.1) mg/dl Total Bilirubin (0.2-1) mg/dl AST (15-37) U/L ALT (12-78) U/L Alkaline Phosphatase (45-117) U/L Total Creatine Kinase (39-308) U/L Troponin I (0-0.045) ng/ml Total Protein (6.4-8.2) gm/dl Albumin (3.4-5.0) gm/dl Globulin (2.5-4.0) gm/dl Albumin/Globulin Ratio (0.9-2) Lipase (73-393) U/L TSH (0.300-4.500) uIu/ml Urine Color Dark Yellow Urine Appearance Clear (Clear) Urine pH 6.5 (4.5-7.5) Ur Specific Jamieson 1.045 H (1.000-1.030) Urine Protein Trace H (Negative) Urine Glucose (UA) Negative (Negative) Urine Ketones 2+ H (Negative) Urine Blood Negative (Negative) Urine Nitrite Positive A (Negative) Urine Bilirubin 2+ H (Negative) Urine Urobilinogen Positive H (Negative) Ur Leukocyte Esterase Negative (Negative) Urine WBC (Auto) 1-5 (0-5) /hpf Urine RBC (Auto) 5-10 H (0-4) /hpf U Hyaline Cast (Auto) 1-5 (0-5) /lpf U Epithel Cells (Auto) 5-10 H (0-5) /lpf Urine Bacteria (Auto) Negative (Negative) Nasal Screen MRSA (PCR) Negative (Negative) COVID-19 Eval Order SARS-CoV-2 (PCR) NEGATIVE (Negative) Influenza Type A (PCR) Negative (Neg) Influenza Type B (PCR) Negative (Neg) RSV (RT-PCR) Negative (Neg) 12/08/20 12/08/20 12/08/20 Range/Units 18:54 18:41 18:41 WBC 20.65 H (4.8-10.8) K/uL RBC 3.67 L (4.7-6.1) M/uL Hgb 12.7 L (14.0-18.0) g/dL Hct 37.3 L (42-52) % MCV 101.6 H (80-100) fL MCH 34.6 H (25-34) pg MCHC 34.0 (32-36) g/dL RDW Std Deviation 54.4 H (36.4-46.3) fL RDW Coeff of Diana 14.6 H (11.5-14.5) % Plt Count 244 (130-400) K/uL MPV 8.1 (7.4-10.4) fL Immature Gran % (Auto) 0.6 % Neut % (Auto) 94.5 % Lymph % (Auto) 1.8 % Eaton % (Auto) 3.1 % Eos % (Auto) 0.0 % Baso % (Auto) 0.0 % Neut # (Auto) 19.51 H (1.4-6.5) K/uL Lymph # (Auto) 0.37 L (1.2-3.4) K/uL Eaton # (Auto) 0.63 H (0.11-0.59) K/uL Eos # (Auto) 0.01 (0-0.5) K/uL Baso # (Auto) 0.01 (0-0.2) K/uL Immature Gran # (Auto) 0.12 H (0.00-0.02) K/uL Sodium 137 (136-145) mmol/L Potassium 3.3 L (3.5-5.1) mmol/L Chloride 103 (98-107) mmol/L Carbon Dioxide 28 (21-32) mmol/L Anion Gap 6.0 (3-11) BUN 28 H (7-18) mg/dl Creatinine 0.83 (0.6-1.4) mg/dl Est Cr Clr Drug Dosing 53.5 ml/min Est GFR ( Amer) 91.1 Est GFR (Non-Af Amer) 78.6 BUN/Creatinine Ratio 33.3 H (10-20) Glucose 106 H (70-99) mg/dl Calcium 8.6 (8.5-10.1) mg/dl Total Bilirubin 4.5 H (0.2-1) mg/dl AST 387 H (15-37) U/L ALT 484 H (12-78) U/L Alkaline Phosphatase 220 H (45-117) U/L Total Creatine Kinase (39-308) U/L Troponin I 0.046 H* (0-0.045) ng/ml Total Protein 6.3 L (6.4-8.2) gm/dl Albumin 3.2 L (3.4-5.0) gm/dl Globulin 3.1 (2.5-4.0) gm/dl Albumin/Globulin Ratio 1.0 (0.9-2) Lipase 92 (73-393) U/L TSH 0.884 (0.300-4.500) uIu/ml Urine Color Urine Appearance (Clear) Urine pH (4.5-7.5) Ur Specific Jamieson (1.000-1.030) Urine Protein (Negative) Urine Glucose (UA) (Negative) Urine Ketones (Negative) Urine Blood (Negative) Urine Nitrite (Negative) Urine Bilirubin (Negative) Urine Urobilinogen (Negative) Ur Leukocyte Esterase (Negative) Urine WBC (Auto) (0-5) /hpf Urine RBC (Auto) (0-4) /hpf U Hyaline Cast (Auto) (0-5) /lpf U Epithel Cells (Auto) (0-5) /lpf Urine Bacteria (Auto) (Negative) Nasal Screen MRSA (PCR) (Negative) COVID-19 Eval Order CovFluRsv at [facility] SARS-CoV-2 (PCR) (Negative) Influenza Type A (PCR) (Neg) Influenza Type B (PCR) (Neg) RSV (RT-PCR) (Neg) Diagnostic Findings CT SCAN OF THE ABDOMEN AND PELVIS WITH IV CONTRAST CLINICAL HISTORY: Hyperbilirubinemia. COMPARISON STUDY: Abdominal CT dated 11/14/2007. TECHNIQUE: Following the IV administration of 93 cc of Optiray 320, CT scan of the abdomen and pelvis is performed from the lung bases to the proximal femora. Images are reviewed in the axial, sagittal, and coronal planes. IV contrast was administered without complication. A dose lowering technique was utilized adhering to the principles of ALARA. CT DOSE: 247.67 mGy.cm FINDINGS: Lung bases: The heart is enlarged and without pericardial effusion. Aneurysmal dilatation of the ascending thoracic aorta is partially visualized. This measures up to 4.5 cm. There is bibasilar scarring/atelectasis, greatest at the right lung base. No airspace consolidation or pleural effusion is identified. There is a small hiatal hernia. Liver: The contrast-enhanced liver is normal in size, contour, and attenuation. There is no intrahepatic biliary ductal dilatation. The hepatic veins and portal veins are patent. Gallbladder: The gallbladder is distended. The gallbladder wall appears thickened and there is mild pericystic infiltration. Question a calcified gallstone within the common bile duct on image #148. Spleen: Normal in size and attenuation. Pancreas: Moderately atrophic and grossly unremarkable. Adrenal glands: Unremarkable. Kidneys: The contrast enhanced kidneys demonstrate cortical atrophy and are without hydronephrosis. The kidneys enhance symmetrically. Abdominal vasculature: The abdominal aorta is normal in course and caliber noting moderate atherosclerotic calcification. Bowel: No bowel obstruction is identified. There is moderate constipation. There is mild to moderate colonic diverticulosis without CT evidence of acute diverticulitis. The appendix is not visualized. Peritoneum: There is no intraperitoneal free air or abdominal ascites. Lymphadenopathy: None. Pelvic viscera: The prostate gland is diminutive and heterogeneous. The bladder is normal as visualized. A left inguinal hernia contains a nonobstructed segment of colon. Skeletal structures: The skeletal structures are osteopenic. There is moderate to advanced lumbosacral spondylosis. There is a chronic compression deformity of T12. No lytic or blastic lesions are seen. IMPRESSION: 1. Findings are concerning for acute cholecystitis and clinical correlation will be required. If necessary a right upper quadrant ultrasound could be considered for further assessment. 2. Question a calcified gallstone within the common bile duct. 3. Cardiomegaly with aneurysmal dilatation of the ascending thoracic aorta. This is partially visualized and measures up to 4.5 cm. 4. Mild to moderate colonic diverticulosis without CT evidence of acute diver ticulitis. 5. A left inguinal hernia contains a small segment of colon. 6. Additional findings as above. MRCP CLINICAL HISTORY: herminio, hyperbili, ?choledocholelithiasis TECHNIQUE: Utilizing a 1.5 Mandy magnet and dedicated coil, multiplanar, multiecho imaging of the upper abdomen was performed utilizing heavily T2 weighted pulsing sequences without IV contrast. COMPARISON STUDY: CT of the abdomen and pelvis December 08, 2020. FINDINGS: This exam is moderately compromised by respiratory motion artifact. Multiple gallstones within the gallbladder are noted. The gallbladder is mildly distended. There is trace pericholecystic fluid is mild gallbladder wall thickening. No biliary ductal dilatation is noted. The common bile duct measures 5 mm in caliber. Sensitivity for detection of common bile duct calculi is diminished on this exam but none are identified. There is no peripancreatic infiltration or fluid. There is no hydronephrosis. No hepatic lesions are yury ntified on this unenhanced examination. Cardiomegaly and dilatation of the visualized portions of the ascending aorta are again noted, as shown on CT. Sensitivity for detection of a pancreatic mass is diminished on this unenhanced exam but none are identified. IMPRESSION: 1. No biliary ductal dilatation. Sensitivity for detection of common bile duct calculi significantly diminished on this exam due to motion artifact but none identified. 2. Cholelithiasis, mild gallbladder distention and trace pericholecystic fluid with gallbladder wall thickening. These findings may reflect acute cholecys titis. (1) Fall Encounter type: initial encounter Qualified Code(s): W19.XXXA - Unspecified fall, initial encounter
--- NOTE | 2020-12-09 13:06 | XCELERA ---
[id number]
--- NOTE | 2020-12-09 13:19 | Anesthesiology Consultation ---
Date of Service December 09, 2020 Assessment & Plan (1) Encounter for pre-operative examination: Chart Review Primary Team: Elevated Troponin - Patient's Troponin is 0.067, up from 0.046 at admission. - Patient's EKG showed new PACs but otherwise normal. - Patient has experienced no chest pain, pressure, or angina on exertion. Repeat troponin levels to monitor trend. Consider an echo to evaluate to evaluate LV ejection fraction. Consults Requested none ASA ASA2 Proposed Anesthesia Anesthesia Type: General Risk / Benefits Reviewed With: PT / POA / Parent / Guardian, Accepts Plan and Informed Consent Obtained Additional Comments: pt had an echo done/reviewed. Normal EF, no RW abnormalities History Surgery Operation Date: 12/09/20 07:00 Proposed Procedures p Endoscopic Retrograde Cholangiopancreatogram - Arnav Pruitt DO Height/Weight Height: 5 ft 5 in Weight: 64 kg Allergies Allergy/AdvReac Type Severity Reaction Status Date / Time No Known Allergies Allergy Verified 12/08/20 19:43 Medications Home Medications Medication Instructions Recorded Confirmed Last Taken ergocalciferol (vitamin D2) 50 mcg 2,000 units PO DAILY 11/17/19 12/08/20 Unknown (2,000 unit) tablet mecobalamin (vitamin B12) 1,000 1,000 mcg PO DAILY 11/17/19 12/08/20 Unknown mcg chewable tablet albuterol sulfate 90 mcg/actuation 2 puff INH Q4H PRN #18 gm 09/09/20 12/08/20 Unknown aerosol inhaler finasteride 5 mg tablet 5 mg PO DAILY #90 tab 10/29/20 12/08/20 Unknown ipratropium 0.5 mg-albuterol 3 mg 3 ml INH Q4H PRN #360 ml 11/25/20 12/08/20 Unknown (2.5 mg base)/3 mL nebulization soln nebulizer accessories #1 ea 11/25/20 12/08/20 Unknown furosemide 20 mg tablet 20 mg PO BID #180 tab 12/01/20 12/08/20 Unknown budesonide-formoterol 2 puff INHALATION BID 12/08/20 12/08/20 Unknown Active Medications Generic Name Dose Route Start Last Admin Trade Name Freq PRN Reason Stop Dose Admin Albuterol 2 puffs 12/09/20 01:15 12/09/20 11:31 Albuterol Hfa 8 Gm Inhaler INH 01/08/21 01:14 2 puffs Q4H PRN Administration shortness of breath Cyanocobalamin 1,000 mcg 12/09/20 09:00 12/09/20 09:19 Cyanocobalamin 500 Mcg Tablet (Vitamin B-12) PO 01/08/21 08:59 1,000 mcg DAILY GAURI Administration Finasteride 5 mg 12/09/20 09:00 12/09/20 09:19 Finasteride 5 Mg Tab PO 01/08/21 08:59 5 mg DAILY GAURI Administration Fluticasone/Vilanterol 1 puffs 12/09/20 09:00 12/09/20 09:19 Fluticasone/Vilanterol 100/25mcg 14 Puffs/Inhaler INH 01/08/21 08:59 1 puffs DAILY GAURI Administration Lactated Ringer's 1,000 mls @ 80 mls/hr 12/09/20 01:15 12/09/20 01:40 Lr IV 12/10/20 02:14 80 mls/hr .[id number] GAURI Administration Piperacillin Sod/Tazobactam 115 mls @ 28.75 mls/hr 12/09/20 02:00 12/09/20 13:49 Sod 3.375 gm/ Dextrose IV 12/19/20 01:59 Infused Q8H GAURI Infusion Protocol NPO Date Last Intake of Fluids: 12/09/20 Time Last Intake of Fluids: 00:00 Date Last Intake of Solids: 12/09/20 Time Last Intake of Solids: 00:00 Past Medical History Medical History 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 bili, lfts, alk phos and CT scan concerning for acute cholecystitis and choledocholithiasis. Concern for ascending cholangitis given leukocytosis. Exercise / Class Metabolic Activity II 4-5 Yardwork/Stairs/Walk up hill Past Family History Family History Mother Acquired amyotrophic lateral sclerosis Father Throat cancer Laryngeal cancer Denies family history of Prostate cancer Past Surgical History Surgical History H/O repair of rotator cuff H/O thoracic aortic aneurysm repair History of lithotripsy History of tooth extraction Hx of cataract surgery Hx of colonoscopy Past Anesthesia History No Hx of Anesthesia Complications and No Family Hx of Anesthesia Complications History of PONV No Hx of PONV and No Hx of Motion Sickness Social History Smoking Status: Former smoker tobacco type: pipe Do You Dip or Chew Tobacco: No Hx Alcohol Use: Yes Alcohol type: beer alcohol intake frequency: a few times a month Hx Substance Use: No Review of Systems denies fever/cough/ colds/ chest pain/ SOB/ WILLARD denies WILLARD Physical Exam Vital Signs Last Vital Signs Temp 36.6 C 12/09/20 07:17 Pulse 77 12/09/20 07:17 Resp 16 12/09/20 07:17 BP 107/61 12/09/20 07:17 Pulse Ox 94 12/09/20 07:17 ENMT Mouth: + dentition abnormality (broken teeth); no TMJ abnormality Thyromental Distance: > or= 3.5 Finger Breadths Mallampati Class: II Neck neck extension not limited Respiratory normal respiratory effort; no respiratory distress Auscultation: lungs clear to auscultation bilaterally Cardiovascular Rate/Rhythm: regular rate and regular rhythm Neurologic moves all extremities Psychiatric Orientation: alert and oriented x 3 Testing Laboratory Results 12/09/20 07:56 12/09/20 07:56 Urine Color Dark Yellow 12/08/20 22:55 Urine Appearance Clear (Clear) 12/08/20 22:55 Urine pH 6.5 (4.5-7.5) 12/08/20 22:55 Ur Specific [place] 1.045 (1.000-1.030) H 12/08/20 22:55 Urine Protein Trace (Negative) H 12/08/20 22:55 Urine Glucose (UA) Negative (Negative) 12/08/20 22:55 Urine Ketones 2+ (Negative) H 12/08/20 22:55 Urine Nitrite Positive (Negative) A 04/07/21 22:55 Ur Leukocyte Esterase Negative (Negative) 12/08/20 22:55 Urine WBC (Auto) 1-5 /hpf (0-5) 12/08/20 22:55 Urine RBC (Auto) 5-10 /hpf (0-4) H 12/08/20 22:55 U Hyaline Cast (Auto) 1-5 /lpf (0-5) 12/08/20 22:55 U Epithel Cells (Auto) 5-10 /lpf (0-5) H 12/08/20 22:55 Urine Bacteria (Auto) Negative (Negative) 12/08/20 22:55 Laboratory Tests 12/08/20 12/09/20 18:41 07:56 Troponin I 0.046 H* 0.067 H* Electrocardiogram Date: 12/08/20 HR 88. Sinus rhythm with 1st degree AV block with PAC's. Otherwise normal ECG. Chest X-Ray Date: 12/08/20 SINGLE VIEW CHEST CLINICAL HISTORY: Generalized weakness. FINDINGS: An AP, portable, upright chest radiograph is compared to study dated 04/20/2020 and correlated with chest CT dated 05/08/2018. The examination is degraded by portable technique and patient rotation. The heart is enlarged and there is atherosclerotic calcification of the thoracic aorta. The pulmonary vasculature is noncongested. Prominence of the central pulmonary vessels likely represents pulmonary artery hypertension. Emphysema and chronic interstitial thickening are similar to previous. Foci of parenchymal scarring/atelectasis are seen throughout both lungs. There is no evidence of superimposed airspace consolidation or large pleural effusion. There is no pneumothorax. The skeletal structures are osteopenic. Degenerative change is noted throughout the thoracic spine and in the shoulders. IMPRESSION: Cardiomegaly and emphysema with no acute cardiopulmonary abnormality. Echocardiogram Date: 12/09/20 Normal LV size and systolic function. EF 60-65%. No RWMA. Mild LVH. Mildly dilated RV with normal systolic function. Mild LAD. Mildly dilated aortic root and ascending aorta.
[2020-12-09] MEDS ORDERED: fentaNYL citrate 100 MCG/2 ML VIAL ONE (14:39)
[2020-12-09] MEDS ORDERED: PHENYLEPHRINE 100MCG/ML 5ML SYR ONE (14:39)
[2020-12-09] MEDS ORDERED: ePHEDrine sulfate 50 MG/ML SYR ONE (14:39)
[2020-12-09] MEDS ORDERED: LIDOCAINE HCL 2% 2 ML VIAL/AMP(20MG/ML) INFIL ONE (14:39)
[2020-12-09] MEDS ORDERED: LARYING-O-JET KIT (LTA) ONE (14:39)
[2020-12-09] MEDS ORDERED: PROPOFOL IV EMULSION 10 MG/ML 20 ML VIAL IV ONE (14:39)
--- NOTE | 2020-12-09 14:40 | Electrocardiogram Report ---
Test Reason : Blood Pressure : / mmHG Vent. Rate : 088 BPM Atrial Rate : 088 BPM P-R Int : 216 ms QRS Dur : 106 ms QT Int : 348 ms P-R-T Axes : 064 -26 028 degrees QTc Int : 421 ms Sinus rhythm with 1st degree A-V block with Premature atrial complexes Otherwise normal ECG When compared with ECG of 06-SEP-2009 11:58, Premature atrial complexes are now Present Vent. rate has increased BY 33 BPM Nonspecific T wave abnormality now evident in Anterior leads Confirmed by Dom Hyde ([id number]) on 12/09/2020 2:39:42 PM Referred By: REFERRED SELF Confirmed By:Dom Hyde
[2020-12-09] MEDS ORDERED: SUCCINYLCHOLINE CHLORIDE 20 MG/ML 10 ML VIAL IV ONE (15:22)
--- NOTE | 2020-12-09 16:05 | GI REPORT ---
Patient Name: Bryant Ventura Procedure Date: 12/09/2020 3:21 PM Date of : 1930 Admit Type: Inpatient Age: 89 Gender: Male Attending MD: Arnav Pruitt DO Procedure: ERCP Providers: Arnav Pruitt DO Referring MD: Eric St Indications: Abdominal pain of suspected biliary origin, Suspected ascending cholangitis Medicines: General Anesthesia Complications: No immediate complications. Estimated blood loss: Minimal. Estimated Blood Loss: Estimated blood loss was minimal. Procedure: Pre-Anesthesia Assessment: - Prior to the procedure, a History and Physical was performed, and patient medications, allergies and sensitivities were reviewed. The patient's tolerance of previous anesthesia was reviewed. - The risks and benefits of the procedure and the sedation options and risks were discussed with the patient. All questions were answered and informed consent was obtained. - Patient identification and proposed procedure were verified prior to the procedure by the physician, the nurse and the dcs engineer. The procedure was verified in the procedure room. - Pre-procedure physical examination revealed no contraindications to sedation. - ASA Grade Assessment: IV - A patient with severe systemic disease that is a constant threat to life. - After reviewing the risks and benefits, the patient was deemed in satisfactory condition to undergo the procedure. - The anesthesia plan was to use general anesthesia. - Immediately prior to administration of medications, the patient was re-assessed for adequacy to receive sedatives. - The heart rate, respiratory rate, oxygen saturations, blood pressure, adequacy of pulmonary ventilation, and response to care were monitored throughout the procedure. - The physical status of the patient was re-assessed after the procedure. After obtaining informed consent, the scope was passed under direct vision. Throughout the procedure, the patient's blood pressure, pulse, and oxygen saturations were monitored continuously. The Scope was introduced through the mouth, and advanced to the duodenum and used to inject contrast into the bile duct. The ERCP was accomplished without difficulty. The patient tolerated the procedure well. Findings: The television cabinet finisher film was normal. The esophagus was successfully intubated under direct vision without detailed examination of the pharynx, larynx, and associated structures, and upper GI tract. The upper GI tract was grossly normal. The major papilla was on the rim of a diverticulum. The major papilla was bulging. The bile duct was deeply cannulated with the short-nosed traction sphincterotome and guidewire. Contrast was injected. I personally interpreted the bile duct images. Contrast extended to the hepatic ducts. The biliary orifice was stenotic. This appeared benign. The lower third of the main bile duct contained filling defect(s) thought to be a stone and sludge. Biliary sphincterotomy was made with a Fusion OMNI sphincterotome using ERBE electrocautery. There was no post-sphincterotomy bleeding. To discover objects, the biliary tree was swept with a 12 mm balloon starting at the bifurcation. Sludge was swept from the duct. One stone was removed. No stones remained. Pus was swept from the duct. One 10 Fr by 8 cm biliary stent with a single internal flap was placed 8 cm into the common bile duct. Bile and pus flowed through the stent. The stent was in good position. The endoscope was withdrawn from the patient. Indomethacin 100 mg was given via suppository to decrease the risk of post-ERCP pancreatitis (PEP). The total fluoroscopy exposure time was 57 seconds. Impression: - The major papilla was on the rim of a diverticulum. - The major papilla appeared to be bulging. - Biliary papillary stenosis, benign. - A filling defect consistent with a stone and sludge was seen on the cholangiogram. - Choledocholithiasis, sludge and pus was found. Complete removal was accomplished by biliary sphincterotomy and balloon extraction. - One biliary stent was placed into the common bile duct. Recommendation: - Avoid aspirin and nonsteroidal anti-inflammatory medicines for 1 week. - Clear liquid diet today. - Use broad spectrum antibiotics for 2 weeks. - Return to endoscopist for stent removal at ERCP in 6 weeks. - Cholecystectomy per General Surgery. Arnav Pruitt D.O. Arnav Pruitt DO 12/09/2020 4:05:05 PM This report has been signed electronically. Note Initiated On: 12/09/2020 3:21 PM Number of Addenda: 0 I attest to the content of the Intraoperative Record and orders documented therein, exceptions below {[id number]}
--- NOTE | 2020-12-09 16:05 | Post Operative Brief Note ---
Immediate Post Op Note v1 Date of Surgery December 09, 2020 Pre & Post Diagnosis Operation Date: 12/09/20 07:00 Pre-Op Diagnosis: cholangitis Post-Op Diagnosis: cholangitis I identified the patient and participated in the time-out.: Yes Procedure Operation Date: 12/09/20 07:00 Actual Procedures p Endoscopic Retrograde Cholangiopancreatogram(Not Applicable) - Arnav Pruitt DO Surgeon Arnav Pruitt DO [employer] none Estimated Blood Loss 0 Findings Consistent with Post-Op Diagnosis
--- NOTE | 2020-12-09 16:09 | Communication Note ---
Date of Service: December 09, 2020 Patient underwent ERCP this afternoon. Findings: mild cholangitis / CBD stone and Sludge Intervention: Biliary sphincterotomy, balloon sweep of CBD and biliary stent placement Recomendations: 2 weeks abx course cholecystectomy per General Surgery repeat ERCP in 6 weeks for Stent removal avoid NSAIDS for 1 week May have clears this evening.
--- NOTE | 2020-12-09 16:31 | Fluoroscopy Report ---
INTRAOPERATIVE RADIOGRAPHS CLINICAL HISTORY: ERCP. Fluoroscopy time: 57 seconds FINDINGS: 11 spot fluoroscopic views of the right upper quadrant from an ERCP procedure are correlate d with MRCP dated 12/09/2020. A catheter is placed within the common bile duct. There is no significant intra or extrahepatic biliary ductal dilatation. A balloon sweep of the duct is performed. A common bile duct stent is noted on the final image. IMPRESSION: Intraoperative ERCP images as above. See operative report for detailed findings. Electronically signed by: Vince Schwartz M.D. 12/09/2020 4:30 PM
--- NOTE | 2020-12-09 17:29 | Anesthesiology Progress Note ---
Date of Service December 09, 2020 Anesthesia Post Procedure Vital Signs Vital Signs: Temp Pulse Pulse Pulse Pulse Resp BP 12/09/20 17:10 36.8 C 80 22 12/09/20 17:01 36.5 C 86 25 H 12/09/20 16:49 70 26 H 12/09/20 16:40 82 24 12/09/20 16:30 81 23 12/09/20 16:20 91 H 23 12/09/20 16:11 37.2 C 96 H 18 12/09/20 15:12 36.6 C 76 18 12/09/20 07:17 36.6 C 77 16 12/09/20 01:25 36.6 C 78 20 12/09/20 00:09 91 H 16 138/65 12/08/20 23:50 90 16 12/08/20 21:50 102 H 25 H 12/08/20 21:40 104 H 32 H 12/08/20 21:30 104 H 32 H 139/81 12/08/20 21:20 106 H 35 H 12/08/20 21:16 111 H 32 H 12/08/20 21:00 106 H 15 145/76 H 12/08/20 20:59 105 H 36 H 147/76 H 12/08/20 20:58 12/08/20 20:30 99 H 29 H 136/78 12/08/20 20:26 104 H 28 H 12/08/20 20:20 102 H 33 H 12/08/20 20:10 96 H 25 H 12/08/20 20:00 102 H 34 H 12/08/20 19:50 127 H 31 H 12/08/20 19:40 99 H 25 H 12/08/20 19:30 97 H 32 H 136/82 12/08/20 19:20 93 H 35 H 12/08/20 19:17 94 H 39 H 12/08/20 19:00 96 H 34 H 149/73 H 12/08/20 18:50 94 H 25 H 12/08/20 18:41 93 H 35 H 12/08/20 18:31 98 H 38 H 148/80 H 12/08/20 18:21 37.3 C 105 H 20 178/84 H BP BP Pulse Ox 12/09/20 17:10 156/80 H 98 12/09/20 17:01 143/90 H 96 04/08/21 16:49 148/72 H 96 12/09/20 16:40 138/83 94 12/09/20 16:30 136/77 94 12/09/20 16:20 133/80 95 12/09/20 16:11 139/94 98 12/09/20 15:12 131/66 93 12/09/20 07:17 107/61 94 12/09/20 01:25 137/77 95 12/09/20 00:09 96 12/08/20 23:50 128/62 96 12/08/20 21:50 12/08/20 21:40 12/08/20 21:30 12/08/20 21:20 96 12/08/20 21:16 12/08/20 21:00 95 12/08/20 20:59 95 12/08/20 20:58 95 12/08/20 20:30 12/08/20 20:26 98 12/08/20 20:20 12/08/20 20:10 12/08/20 20:00 12/08/20 19:50 12/08/20 19:40 12/08/20 19:30 96 12/08/20 19:20 98 12/08/20 19:17 97 12/08/20 19:00 12/08/20 18:50 12/08/20 18:41 96 12/08/20 18:31 96 12/08/20 18:21 96 Transfer of Care Handoff Completed per policy Notes Mental Status: alert / awake / arousable and participated in evaluation Patient Amnestic to Procedure: Yes Nausea / Vomiting: adequately controlled Pain: adequately controlled Airway Patency, RR, SpO2: stable & adequate BP & HR: stable & adequate Hydration State: stable & adequate Anesthetic Complications: no major complications apparent and Pt Satisfied with anesthetic care
[2020-12-10] MEDS: PIPERACILLIN/TAZOBACTAM 3.375 GM in DEXTROSE 5% 100 ML IV SCH ×3 (01:20→17:20)
[2020-12-10 07:32] LABS: Hematocrit (blood only) 33.2 % (42-52); Immature Granulocytes # (auto) 0.04 K/uL (0.00-0.02); Immature Granulocytes % (auto) 0.3 %; Lymphocytes # (auto) 0.58 K/uL (1.2-3.4); Lymphocytes % (auto) 4.5 %; Mean Corpuscular Hemoglobin 33.8 pg (25-34); Mean Corpuscular Hgb Conc 33.1 g/dL (32-36); Mean Corpuscular Volume 102.2 fL (80-100); Mean Platelet Volume 8.2 fL (7.4-10.4); Monocytes # (auto) 0.48 K/uL (0.11-0.59); Monocytes % (auto) 3.8 %; Neutrophils # (auto) 11.65 K/uL (1.4-6.5); Neutrophils % (auto) 91.4 %; Platelet Count 217 K/uL (130-400); RDW Coefficient of Variation 14.5 % (11.5-14.5); RDW Standard Deviation 54.5 fL (36.4-46.3); Red Blood Count 3.25 M/uL (4.7-6.1); White Blood Count 12.75 K/uL (4.8-10.8)
[2020-12-10 08:01] LABS: Albumin Globulin Ratio 0.9 (0.9-2); Albumin Level 2.5 gm/dl (3.4-5.0); BUN Creatinine Ratio 36.4 (10-20); Calcium 8.2 mg/dl (8.5-10.1); Creatinine Clr Calc Pharmacy 68.3 ml/min; Est GFR (African American) 100.7; Est GFR (Non-African American) 86.9; Globulin 2.9 gm/dl (2.5-4.0); Potassium 4.3 mmol/L (3.5-5.1); Total Protein 5.4 gm/dl (6.4-8.2)
[2020-12-10] MEDS: FINASTERIDE 5 MG TAB PO SCH (08:08)
[2020-12-10] MEDS: CYANOCOBALAMIN 500 MCG TABLET (VITAMIN B-12) PO SCH (08:09)
[2020-12-10] MEDS: FLUTICASONE/VILANTEROL 100/25MCG 14 PUFFS/INHALER INH SCH (08:09)
--- NOTE | 2020-12-10 08:19 | Medical Student Progress Note ---
Date of Service December 10, 2020 Assessment & Plan (1) Cholecystitis: Patient is an 89 year old male with PMHx of COPD, Dementia, BPH, and macrocytic anemia currently on HOD2 after admission following a fall at home. CT scan and MRCP done in the ER showed evidence of cholecystitis. An ERCP w/ s phincterectomy and stent placement was performed which showed evidence of stones and sludge in the common bile duct. Surgery would follow up with the patient for possible cholecystectomy. Acute Cholecystitis complicated by choledocholithiasis - Although patient denies any fever, RUQ pain or nausea, he does acknowledge vomiting twice in the past 4 days. - WBC is 12.75, down from 15.39 yesterday. - Bilirubin is 1.0, down from 1.9 yesterday. - AST is 90 down from 202 yesterday. - ALT is 179, down from 331 yesterday. - ALP is 179, down from 193 yesterday. - BUN/Cr > 20, unchanged from yesterday. - CT Abd/Pelvis and MRCP showed changes consistent with acute cholecystitis without evidence of common bile duct dilation. Continue Zosyn Clear Liquid Diet Zofran PRN nausea Morphine PRN pain, although patient is in no pain - Surgery consulted in ED Follow up with surgery for possible cholecystectomy Mild Cholangitis - ERCP w/ sphincterectomy and stent placement was performed which showed Filling defects of the common bile duct consistent with sludge, stones and pus. Follow up in 6 weeks post-discharge for stent removal Avoid aspirin and nonsteroidal anti-inflammatory medicines for 1 week. Clear liquid diet today. Use broad spectrum antibiotics for 2 weeks. Return to endoscopist for stent removal at ERCP in 6 weeks. Cholecystectomy per General Surgery. Fall - Patient's recent wellness visit notes suggests worsening falls as patient's Dementia has worsened. - Head CT, Cervical Spine CT revealed no pathology. PT/OT should be started following ERCP and cholecystectomy Followup with PT/OT outpatient after discharge Neurology outpatient follow up Elevated Troponin - Patient troponin is 0.057, yesterday it was 0.067. - Presence of cardiomegaly on CT scan and X-ray. - Echo showed normal LV size with preserved EF. No concerning findings were noted Ascending Aortic Aneurysm - Evidence of 4.5 cm ascending aortic aneurysm. Consider outpatient followup with PCP COPD - Patient has a >40 year smoking history as well as prior diagnosis of COPD. - Patient acknowledges episodes of SOB at home which hasn't worsened since admission. - Received breathing treatments and 40mg IV Methylprednisolone in the ED. Continue home Breo Ellipta Albuterol PRN Duoneb PRN BPH - Continue home Finasteride. Macrocytic Anemia - Hgb is 11, up from 10.9 yesterday. - Hct is 33.2, up from 31.6 yesterday. - RBC is 3.25, up from 3.16 yesterday. - MCV is 102.2, up from 100 yesterday. - Patient has a >40 year history of alcoholism and appears malnourished Peripheral Blood Smear + Folate levels pending. Dispo: Med/Surg for IVF, IV antibiotics, cholecystectomy. Will require rehab placement after discharge. FEN: NPO, Electrolytes are normal. NSS 80ml/hr DVT: SCDs Code: DNR/DNI Admission and Anticipated Discharge Date Admission Date: December 08, 2020 Supervising Attestation Medical Student Supervision Note: I was personally present during medical student patient encounter and independently interviewed and examined the patient and verified the anand history and physical, reviewed labs and image studies, discussed the case with Johan Suarez and agree with the findings and care plan. s/p ERCP - stent placement 12/09/20. For cholecystectomy on sunday Subjective Patient is an 89 year old male with PMHx of COPD, Dementia, BPH, and macrocytic anemia currently on HOD2 after admission following a fall at home. CT scan and MRCP done in the ER showed evidence of cholecystitis. An ERCP w/ sphincterectomy and stent placement was performed which showed evidence of stones and sludge in the common bile duct. Patient states he is doing well and has no complaints. He would love to get an update from the surgery team regarding cholecystectomy as well as his hospital course. ROS: Patient denies any fever, headaches, nausea, vomiting, shortness of breath, constipation, diarrhea, weakness, hallucinations Review of Systems Review of Systems: All systems reviewed & are unremarkable except as noted in HPI & below Physical Exam Constitutional: + thin and cooperative Eyes: PERRL, conjunctivae normal, anicteric sclerae Respiratory: normal respiratory effort, lungs clear to auscultation Cardiovascular: RRR, no murmur, no edema Gastrointestinal (Abdomen): normal bowel sounds, soft, nontender, no hepatosplenomegaly Musculoskeletal: no cyanosis or clubbing, extremities motor strength 5/5 Head/Neck/Chest: + head abnormal to inspection (abrasion on his forehead as well as dried blood around his mouth) Shoulder: + shoulder abnormal to inspection (presence of abrasion on his left shoulder) Neurologic: PERRL, EOMI, accommodation nl, no face palsy, no dysarthria normal touch/pain/proprioception, CN's II-XI intact bilaterally, moves all extremities and awake Cranial Nerves: no nystagmus Results & Data ([facility]) Vital Signs (Past 12 Hours) Vital Signs Temp Pulse Resp BP Pulse Ox 12/10/20 03:32 36.7 C 70 17 115/60 95 12/09/20 23:10 36.5 C 78 18 128/77 93 12/09/20 20:16 37.2 C 83 17 134/75 93
--- NOTE | 2020-12-10 09:01 | Anesthesiology Progress Note ---
Date of Service December 10, 2020 Anesthesia Post Procedure Vital Signs Vital Signs: Temp Pulse Pulse Pulse Resp BP BP 12/10/20 08:23 37.1 C 64 18 132/73 12/10/20 03:32 36.7 C 70 17 115/60 12/09/20 23:10 36.5 C 78 18 128/77 12/09/20 20:16 37.2 C 83 17 134/75 12/09/20 19:11 36.7 C 88 17 147/79 H 12/09/20 18:09 37.7 C H 89 18 149/80 H 12/09/20 17:47 36.4 C L 90 18 166/86 H 12/09/20 17:10 36.8 C 80 22 156/80 H 12/09/20 17:01 36.5 C 86 25 H 143/90 H 12/09/20 16:49 70 26 H 148/72 H 12/09/20 16:40 82 24 138/83 12/09/20 16:30 81 23 136/77 12/09/20 16:20 91 H 23 133/80 12/09/20 16:11 37.2 C 96 H 18 139/94 12/09/20 15:12 36.6 C 76 18 131/66 Pulse Ox 12/10/20 08:23 94 12/10/20 03:32 95 12/09/20 23:10 93 12/09/20 20:16 93 12/09/20 19:11 93 12/09/20 18:09 92 12/09/20 17:47 98 12/09/20 17:10 98 12/09/20 17:01 96 12/09/20 16:49 96 12/09/20 16:40 94 12/09/20 16:30 94 12/09/20 16:20 95 12/09/20 16:11 98 12/09/20 15:12 93 Notes Mental Status: alert / awake / arousable and participated in evaluation Patient Amnestic to Procedure: Yes (doesn't remember yesterday, has dementia) Nausea / Vomiting: adequately controlled Pain: adequately controlled Airway Patency, RR, SpO2: stable & adequate BP & HR: stable & adequate Hydration State: stable & adequate Anesthetic Complications: no major complications apparent
[2020-12-10] MEDS: SODIUM CHLORIDE 0.9% 1000ML 1,000 ML IV SCH ×2 (10:39→23:32)
--- NOTE | 2020-12-10 11:03 | Gastrointestinal Consultation ---
Date of Consultation December 10, 2020 Assessment & Plan (1) Ascending cholangitis: (2) Cholecystitis: (3) Fall: Pt is a 89 y/o male presented after a fall, on eval noted to have increased WBC and LFTs. Abd imaging concerning for cholecystitis w possible CBD stone; likely has cholangitis as well. He is w/o abd pain but did have vomiting in the last 4 days. No jaundice on presentation, abd exam benign. - Keep NPO; plan for ERCP in OR by Dr. Pruitt today - Will ask anesthesia (Dr. Thapa) to eval prior to ERCP. Elevated Troponin but w/o cardiac symptoms and no significant changes in EKG. ? demand ischemia - Continue Zosyn IV - Trend LFTs - Check CK History of Present Illness Attending Physician: Estephanie Ramírez MD Allergies Allergy/AdvReac Type Severity Reaction Status Date / Time No Known Allergies Allergy Verified 12/08/20 19:43 Home Medications Medication Instructions Recorded Confirmed Type ergocalciferol (vitamin D2) 50 mcg 2,000 units PO DAILY 11/17/19 12/08/20 History (2,000 unit) tablet mecobalamin (vitamin B12) 1,000 1,000 mcg PO DAILY 11/17/19 12/08/20 History mcg chewable tablet albuterol sulfate 90 mcg/actuation 2 puff INH Q4H PRN #18 gm 09/09/20 12/08/20 Rx aerosol inhaler finasteride 5 mg tablet 5 mg PO DAILY #90 tab 10/29/20 12/08/20 Rx ipratropium 0.5 mg-albuterol 3 mg 3 ml INH Q4H PRN #360 ml 11/25/20 12/08/20 Rx (2.5 mg base)/3 mL nebulization soln nebulizer accessories #1 ea 11/25/20 12/08/20 Rx furosemide 20 mg tablet 20 mg PO BID #180 tab 12/01/20 12/08/20 Rx budesonide-formoterol 2 puff INHALATION BID 12/08/20 12/08/20 History Patient History Medical History 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 COPD (chronic obstructive pulmonary disease) Degenerative arthritis of knee, bilateral Dementia H/O hearing loss H/O squamous cell carcinoma H/O varicose veins H/O vitamin D deficiency History of basal cell carcinoma Venous insufficiency Surgical History H/O repair of rotator cuff H/O thoracic aortic aneurysm repair History of lithotripsy History of tooth extraction Hx of cataract surgery Hx of colonoscopy Family History Mother Acquired amyotrophic lateral sclerosis Father Throat cancer Laryngeal cancer Denies family history of Prostate cancer Social History Smoking Status: Former smoker Tobacco Type: Pipe Second Hand Exposure: No; Do You Dip or Chew Tobacco: No; Tobacco Cessation Education Requested by Patient: No Hx Alcohol Use: Yes Alcohol type: beer Hx Substance Use: No Preferred Language: Spanish Communication Ability: Effective Visual Impairment: Limited Hearing Ability: Hard of Hearing Incident Response Coordinator Required: No Beliefs That Will Affect Care: None marital status: Current Living Situation: Spouse Current Living Situation Comment: Lives at home with . 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 [employer] Other Information That Helps Us Care for You: No Feels Safe at Home: Yes Safety Concerns: Feels Safe At This Time Childhood Exposure to Second-Hand Smoke: Yes caffeine: Yes Dental Care, Regularly: Yes Physical Activity Frequency: Does not Exercise Seatbelt Use: always Sunscreen Use: No (does not go outside) Assistive Devices: Glasses and Walker Physical Exam Constitutional: WD/WN, vitals as above well groomed, cooperative and comfortable Eyes: PERRL, conjunctivae normal, anicteric sclerae ENMT: external ear and nose normal, oropharynx normal Respiratory: normal respiratory effort, lungs clear to auscultation Cardiovascular: RRR, no murmur, no edema Gastrointestinal (Abdomen): normal bowel sounds, soft, nontender, no hepatosplenomegaly Skin: no rashes, warm and dry no jaundice Psychiatric: A+Ox3, euthymic affect Lymphatic: no lymphedema Results & Data ([facility]) Vital Signs (Past 12 Hours) Vital Signs Temp Pulse Resp BP Pulse Ox 12/10/20 08:23 37.1 C 64 18 132/73 94 12/10/20 03:32 36.7 C 70 17 115/60 95 12/09/20 23:10 36.5 C 78 18 128/77 93 (1) Fall Encounter type: initial encounter Qualified Code(s): W19.XXXA - Unspecified fall, initial encounter
--- NOTE | 2020-12-10 11:10 | Gastroenterology Progress Note ---
Date of Service December 10, 2020 Assessment & Plan (1) Ascending cholangitis: (2) Cholecystitis: (3) Fall: Pt is a 89 y/o male presented after a fall, on eval noted to have increased WBC and LFTs. Abd imaging concerning for cholecystitis w possible CBD stone; likely has cholangitis as well. He is w/o abd pain but did have vomiting in the last 4 days. No jaundice on presentation, abd exam benign. ERCP done 12/10 - pus noted, choledocholithiasis removed, biliary sphincterectomy done and biliary stent placed. LFTs trending down - Avoid ASA and NSAIDs x 5 days after sphincterectomy - Continue broad spectrum antibx for cholangitis x 14 days total - Trend LFTs - Repeat ERCP for biliary stent removal in 4-6 weeks time - Timing of cholecystectomy per Surgery - Advance diet as tolerated if no cholecystectomy planned while inpt - GI sign off; pls recall prn Admission and Anticipated Discharge Date Admission Date: December 08, 2020 Supervising Physician Co-Signing Physician Notes I have discussed the patient's management with the advanced practitioner. Please refer to the nurse practitioner's note for the documented findings and plan of care. Subjective Pt denies abd pain, n/v, fever, chills. LFTs trending down. He is tolerating CL Diet Review of Systems Review of Systems: All systems reviewed & are unremarkable except as noted in HPI & below Physical Exam 2 Constitutional: WD/WN, vitals as above well groomed, cooperative and comfortable Eyes: PERRL, conjunctivae normal, anicteric sclerae ENMT: external ear and nose normal, oropharynx normal Respiratory: normal respiratory effort, lungs clear to auscultation Cardiovascular: RRR, no murmur, no edema Gastrointestinal (Abdomen): normal bowel sounds, soft, nontender, no hepatosplenomegaly Skin: no rashes, warm and dry no jaundice Psychiatric: A+Ox3, euthymic affect Lymphatic: no lymphedema Results & Data ([facility]) Vital Signs (Past 12 Hours) Vital Signs Temp Pulse Resp BP Pulse Ox 12/10/20 08:23 37.1 C 64 18 132/73 94 12/10/20 03:32 36.7 C 70 17 115/60 95 12/09/20 23:10 36.5 C 78 18 128/77 93 (1) Fall Encounter type: initial encounter Qualified Code(s): W19.XXXA - Unspecified fall, initial encounter
--- NOTE | 2020-12-10 13:20 | Surgery Progress Note ---
Date of Service F/U cholelithiasis, S/P ERCP, pt is doing better, no abdominal pain, no nausea, no vomiting, no fever, December 10, 2020 Assessment & Plan (1) Ascending cholangitis: 89 year-old male s/p fall after tripping who presented to ED and found to have leukocytosis, tachycardia and tachypneic in the ED with elevated t. bili, lfts, alk phos and CT scan concerning for acute cholecystitis and choledocholithiasis. Concern for ascending cholangitis given leukocytosis. Abdominal examination is benign with no abdominal pain as presenting issues but with a few days of vomiting Plan: Discussed with GI who is planning for ERCP today Will determine timing of cholecystectomy either Sunday or Sunday depending on ERCP timing. Dr. Paula does not want to do tandem procedure given his age and prolonged anesthesia. Continue current management: IV fluids, IV Zosyn, pain management as needed NPO status for planned ERCP continue medical management (2) Cholecystitis: (3) Fall: Dr. Paula has seen patient and present during my examination. Agrees with above. 12/10/2020 1:16PM F/U cholelithiasis, S/P ERCP, doing better, no abdominal pain, I recommend to do laparoscopic cholecystectomy, possible open or cholangiogram, on next Sunday, D/W benefits, risks and alternatives of the surgery, the risks - infection, bleeding injury CBD, or bowel, MS, DVT, stroke , pt understood, he agrees with the surgery, I answered all questions, jawbone breaker surgery cover weekend, thanks, NPO after MN on Sunday, regular diet now, Admission and Anticipated Discharge Date Admission Date: December 08, 2020 Subjective Pt denies abd pain, n/v, fever, chills. LFTs trending down. He is tolerating CL Diet Physical Exam Constitutional: WD/WN, vitals as above well developed and well nourished Eyes: PERRL, conjunctivae normal, anicteric sclerae ENMT: external ear and nose normal, oropharynx normal Neck: trachea midline, no thyromegaly Respiratory: normal respiratory effort, lungs clear to auscultation normal respiratory effort Cardiovascular: RRR, no murmur, no edema Gastrointestinal (Abdomen): normal bowel sounds, soft, nontender, no hepatosplenomegaly Musculoskeletal: no cyanosis or clubbing, extremities motor strength 5/5 Skin: no rashes, warm and dry Neurologic: awake Psychiatric: Orientation: alert and oriented x 3 Results & Data ([facility]) Vital Signs (Past 12 Hours) Vital Signs Temp Pulse Resp BP Pulse Ox 12/10/20 08:23 37.1 C 64 18 132/73 94 12/10/20 03:32 36.7 C 70 17 115/60 95 Laboratory Results Abnormal lab results 12/09/20 12/10/20 12/10/20 Range/Units 17:50 06:27 06:27 WBC 12.75 H (4.8-10.8) K/uL RBC 3.25 L (4.7-6.1) M/uL Hgb 11.0 L (14.0-18.0) g/dL Hct 33.2 L (42-52) % MCV 102.2 H (80-100) fL RDW Std Deviation 54.5 H (36.4-46.3) fL Neut # (Auto) 11.65 H (1.4-6.5) K/uL Lymph # (Auto) 0.58 L (1.2-3.4) K/uL Immature Gran # (Auto) 0.04 H (0.00-0.02) K/uL BUN 24 H (7-18) mg/dl BUN/Creatinine Ratio 36.4 H (10-20) Glucose 105 H (70-99) mg/dl Calcium 8.2 L (8.5-10.1) mg/dl AST 90 H (15-37) U/L ALT 250 H (12-78) U/L Alkaline Phosphatase 179 H (45-117) U/L Troponin I 0.057 H* (0-0.045) ng/ml Total Protein 5.4 L (6.4-8.2) gm/dl Albumin 2.5 L (3.4-5.0) gm/dl (1) Fall Encounter type: initial encounter Qualified Code(s): W19.XXXA - Unspecified fall, initial encounter
[2020-12-10] MEDS: ALBUTEROL HFA 8 GM INHALER INH PRN (21:07)
[2020-12-11] MEDS: ALBUTEROL HFA 8 GM INHALER INH PRN ×2 (01:27→13:11)
[2020-12-11] MEDS: PIPERACILLIN/TAZOBACTAM 3.375 GM in DEXTROSE 5% 100 ML IV SCH ×3 (01:31→17:28)
[2020-12-11] MEDS: ALBUT/IPRATROP 3MG/0.5MG NEB 3 ML VIAL INH PRN ×4 (02:21→19:16)
[2020-12-11 06:31] LABS: Basophils # (auto) 0.01 K/uL (0-0.2); Basophils % (auto) 0.1 %; Eosinophils # (auto) 0.06 K/uL (0-0.5); Eosinophils % (auto) 0.7 %; Hematocrit (blood only) 31.6 % (42-52); Hemoglobin 10.8 g/dL (14.0-18.0); Immature Granulocytes # (auto) 0.03 K/uL (0.00-0.02); Immature Granulocytes % (auto) 0.4 %; Lymphocytes # (auto) 1.03 K/uL (1.2-3.4); Lymphocytes % (auto) 12.3 %; Mean Corpuscular Hemoglobin 34.3 pg (25-34); Mean Corpuscular Hgb Conc 34.2 g/dL (32-36); Mean Corpuscular Volume 100.3 fL (80-100); Mean Platelet Volume 8.4 fL (7.4-10.4); Monocytes % (auto) 7.2 %; Neutrophils # (auto) 6.65 K/uL (1.4-6.5); Neutrophils % (auto) 79.3 %; Platelet Count 229 K/uL (130-400); RDW Coefficient of Variation 14.6 % (11.5-14.5); RDW Standard Deviation 53.9 fL (36.4-46.3); Red Blood Count 3.15 M/uL (4.7-6.1); White Blood Count 8.38 K/uL (4.8-10.8)
[2020-12-11 07:01] LABS: Albumin Globulin Ratio 0.9 (0.9-2); Albumin Level 2.4 gm/dl (3.4-5.0); BUN Creatinine Ratio 29.7 (10-20); Bilirubin,Total 0.9 mg/dl (0.2-1); Calcium 7.7 mg/dl (8.5-10.1); Creatinine Clr Calc Pharmacy 72.8 ml/min; Est GFR (African American) 103.3; Est GFR (Non-African American) 89.2; Globulin 2.7 gm/dl (2.5-4.0); Potassium 3.5 mmol/L (3.5-5.1); Total Protein 5.1 gm/dl (6.4-8.2)
--- NOTE | 2020-12-11 08:32 | Hospitalist Progress Note ---
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 Acute Cholecystitis with concerns of Ascending Cholangitis secondary to choledocholithiasis Upon presentation patient did not have any physical exam signs of pain, laboratory studies demonstrated LFTs grossly elevated, AST 387, ALT 44, alk phos 220, bilirubin 4.5. CT abdomen pelvis was consistent with acute cholecystitis with choledocholithiasis, surgery was consulted in the ED recommending an MR and ERCP. GI was consulted and ER CP was performed which confirmed this diagnosis, -Surgery consulted following recommendations -Cholecystectomy Sunday -Zosyn -Regular diet n.p.o. Sunday night at midnight -Zofran PRN nausea -Morphine PRN pain, though patient has not explicit noted pain at this time -Tylenol PRN fever, has not required, appropriate even with acute elevations in LFTs if needed for antipyretic Shortness of breath Patient endorsing shortness of breath this morning however this was prior to receiving his scheduled inhalers. Given his symptoms and physical exam findings of coarse breath sounds left lower lobe obtain a chest x-ray demonstrating left lower lobe opacity and perihilar opacities concerning for atelectasis versus pneumonia. Given the fact that the patient is on antibiotic therapy I am more suspicious of atelectasis versus fluid. -Hold fluids -Asked nursing to administer daily respiratory medications and will reevaluate the patient later in the day -Respiratory therapy ordered Fall Per review of patient's recent wellness visit notes, appears to have been worsening as patient's Dementia has worsened,Head CT, Cervical Spine CT negative for acute pathology. Patient would likely benefit from PT/OT and short term rehab at SNF or inpatient rehab after his surgical complications are dealt with. -PT/OT after cholecystectomy. Elevated Troponin Troponin bump to 0.046 likely demand ischemia, no chest pain, pressure, or angina on exertion -EKG with chest pain COPD -Received breathing treatments and 40mg IV Methylprednisolone in the ED -Continue home Breo Ellipta -Albuterol PRN -Duoneb PRN BPH -Continue home Finasteride Lower Extremity Edema -Chronic per patient Macrocytic Anemia -Appears chronic secondary to hx Vitamin B12 deficiency -?Due to prior alcohol use -Will continue supplementation of B12 Dispo: Med/Surg for IVF, IV antibiotics, and continued monitoring for likely cholecystectomy and ERCP. Will likely require SNF or inpatient rehab placement after discharge. FEN: regular diet DVT: SCDs Code: DNR/DNI Admission and Anticipated Discharge Date Admission Date: December 08, 2020 Supervising Physician Co-Signing Physician Notes Resident Physician Supervision Note: I independently interviewed and examined the patient and verified the anand history and physical, reviewed labs and image studies, discussed the case with the resident Dr. Quirino Andrade and agree with the findings and care plan. Subjective Patient sitting up in bed this morning describing shortness of breath otherwise reports he is doing well. Slept well overnight, tolerating his diet, voiding, stooling. Patient denies abdominal pain, reports doing well overall. Acute concerns related to shortness of breath, all questions answered Physical Exam Physical Exam: General: Lying in bed in no acute distress HEENT: Normocephalic atraumatic Neck: Normal visual inspection Cardiac: Regular rate and rhythm I did not appreciate significant murmurs rubs or gallops normal S1, normal S2, negative pedal edema Respiratory: Diminished breath sounds bilaterally, without increased work of breathing, coarse breath sounds in the left lower lobe remainder of the exam clear to auscultation GI: Soft, nontender, nondistended, bowel sounds present all 4 quadrants Neuro: Alert and oriented x4 Psych: Calm and cooperative with interview Results & Data Results & Data ([facility]) Vital Signs (Past 12 Hours) Vital Signs Temp Pulse Resp BP Pulse Ox 12/11/20 02:23 61 22 95 12/10/20 23:42 36.6 C 57 L 14 121/72 95 Laboratory Results 12/11/20 12/11/20 12/10/20 Range/Units 05:36 05:36 06:27 WBC 8.38 (4.8-10.8) K/uL RBC 3.15 L (4.7-6.1) M/uL Hgb 10.8 L (14.0-18.0) g/dL Hct 31.6 L (42-52) % MCV 100.3 H (80-100) fL MCH 34.3 H (25-34) pg MCHC 34.2 (32-36) g/dL RDW Std Deviation 53.9 H (36.4-46.3) fL RDW Coeff of Diana 14.6 H (11.5-14.5) % Plt Count 229 (130-400) K/uL MPV 8.4 (7.4-10.4) fL Immature Gran % (Auto) 0.4 % Neut % (Auto) 79.3 % Lymph % (Auto) 12.3 % [place] % (Auto) 7.2 % Eos % (Auto) 0.7 % Baso % (Auto) 0.1 % Neut # (Auto) 6.65 H (1.4-6.5) K/uL Lymph # (Auto) 1.03 L (1.2-3.4) K/uL [place] # (Auto) 0.60 H (0.11-0.59) K/uL Eos # (Auto) 0.06 (0-0.5) K/uL Baso # (Auto) 0.01 (0-0.2) K/uL Immature Gran # (Auto) 0.03 H (0.00-0.02) K/uL Peripher Smr Path Cons Sodium 138 (136-145) mmol/L Potassium 3.5 D (3.5-5.1) mmol/L Chloride 107 (98-107) mmol/L Carbon Dioxide 26 (21-32) mmol/L Anion Gap 5.0 (3-11) BUN 18 (7-18) mg/dl Creatinine 0.61 (0.6-1.4) mg/dl Est Cr Clr Drug Dosing 72.8 ml/min Est GFR ( Amer) 103.3 Est GFR (Non-Af Amer) 89.2 BUN/Creatinine Ratio 29.7 H (10-20) Glucose 82 (70-99) mg/dl Calcium 7.7 L (8.5-10.1) mg/dl Total Bilirubin 0.9 (0.2-1) mg/dl AST 42 H (15-37) U/L ALT 171 H (12-78) U/L Alkaline Phosphatase 148 H (45-117) U/L Total Protein 5.1 L (6.4-8.2) gm/dl Albumin 2.4 L (3.4-5.0) gm/dl Globulin 2.7 (2.5-4.0) gm/dl Albumin/Globulin Ratio 0.9 (0.9-2) Medications Administered Current Inpatient Medications Acetaminophen (Acetaminophen 325 Mg Tab) 650 mg PO Q4H PRN PRN Reason: pain/fever Stop: 01/08/21 01:14 Albuterol (Albuterol Hfa 8 Gm Inhaler) 2 puffs INH Q4H PRN PRN Reason: shortness of breath Stop: 01/08/21 01:14 Last Admin: 12/11/20 01:27 Dose: 2 puffs Documented by: Albuterol (Albut/Ipratrop 3mg/0.5mg Neb 3 Ml Vial) 3 ml INH Q4H PRN PRN Reason: wheezing or shortness of breath Stop: 01/08/21 01:14 Last Admin: 12/11/20 09:28 Dose: 3 ml Documented by: Cyanocobalamin (Cyanocobalamin 500 Mcg Tablet (Vitamin B-12)) 1,000 mcg PO DAILY [facility] Stop: 01/08/21 08:59 Last Admin: 12/11/20 08:57 Dose: 1,000 mcg Documented by: Finasteride (Finasteride 5 Mg Tab) 5 mg PO DAILY [facility] Stop: 01/08/21 08:59 Last Admin: 12/11/20 08:57 Dose: 5 mg Documented by: Fluticasone/Vilanterol (Fluticasone/Vilanterol 100/25mcg 14 Puffs/Inhaler) 1 puffs INH DAILY [facility] Stop: 01/08/21 08:59 Last Admin: 12/11/20 08:57 Dose: 1 puffs Documented by: Piperacillin Sod/Tazobactam (Sod 3.375 gm/ Dextrose) 115 mls @ 28.75 mls/hr IV Q8H [facility]; Protocol Stop: 12/19/20 01:59 Last Admin: 12/11/20 09:30 Dose: 28.8 mls/hr Documented by: Sodium Chloride (Nss 1000ml) 1,000 mls @ 80 mls/hr IV .[id number] [facility] Stop: 01/09/21 10:29 Last Admin: 12/10/20 23:32 Dose: 80 mls/hr Documented by: Miscellaneous Information (Piperacill/Tazobac Consult Active) 1 ea N/A UD PRN PRN Reason: Consult Stop: 01/08/21 01:14 Morphine Sulfate (Morphine Sulfate 2 Mg/Ml Carp) 1 mg IV Q3H PRN PRN Reason: Pain (1,2,3,4,5) & Pre PT Stop: 12/23/20 01:14 Morphine Sulfate (Morphine Sulfate 4 Mg/Ml 1 Ml Carp\Vial) 3 mg IV Q3H PRN PRN Reason: Pain (6,7,8,9,10) Stop: 12/23/20 01:14 Ondansetron HCl (Ondansetron Inj 2 Mg/Ml 2 Ml Vial) 4 mg IV Q6H PRN PRN Reason: Nausea Stop: 01/08/21 01:14 Resident Activity Tracking Resident Involvement: Resident Care Provided Care Provided: Adult Hospital Medicine (1) COPD (chronic obstructive pulmonary disease) COPD type: unspecified COPD Qualified Code(s): J44.9 - Chronic obstructive pulmonary disease, unspecified (2) Fall Encounter type: initial encounter Qualified Code(s): W19.XXXA - Unspecified fall, initial encounter
[2020-12-11] MEDS: CYANOCOBALAMIN 500 MCG TABLET (VITAMIN B-12) PO SCH (08:57)
[2020-12-11] MEDS: FLUTICASONE/VILANTEROL 100/25MCG 14 PUFFS/INHALER INH SCH (08:57)
[2020-12-11] MEDS: FINASTERIDE 5 MG TAB PO SCH (08:57)
--- NOTE | 2020-12-11 09:27 | XRay Report ---
XR chest 1V portable CLINICAL HISTORY: rule out pneumonia COMPARISON STUDY: Chest radiograph December 08, 2020. FINDINGS: Cardiomegaly is noted. No evidence for pulmonary edema. No pneumothorax or pleural effusion is noted. Left basilar and right perihilar opacity has developed. IMPRESSION: 1. Interval development of left basilar and right perihilar opacity. The findings may reflect pneumon ia or atelectasis. 2. Cardiomegaly without evidence for pulmonary edema. ACT 112: Negative or not required by law. Electronically signed by: Mike John M.D. 12/11/2020 9:26 AM
[2020-12-11] MEDS ORDERED: BUDESONIDE 0.5 MG/2 ML VIAL (PULMICORT) NEB ONE (14:53)
[2020-12-11] MEDS: BUDESONIDE 0.5 MG/2 ML VIAL (PULMICORT) NEB SCH (19:16)
[2020-12-12] MEDS: PIPERACILLIN/TAZOBACTAM 3.375 GM in DEXTROSE 5% 100 ML IV SCH ×3 (02:11→17:48)
--- NOTE | 2020-12-12 05:26 | Surgery Progress Note ---
Date of Service December 12, 2020 Assessment & Plan (1) Cholecystitis: Patient underwent ERCP on 12/09/2020 with removal of common bile duct stone He is scheduled for cholecystectomy by Dr. Paula on 12/13/2020; will make n.p.o. after midnight tonight Continue antibiotics in the form of Zosyn Continue IV fluids Continue analgesics Continue antiemetics Admission and Anticipated Discharge Date Admission Date: December 08, 2020 Subjective Patient offers no specific complaints this morning. He denies any nausea or vomiting. He denies any fevers, shakes, chills. He denies any abdominal pain at the present time. Physical Exam Gastrointestinal (Abdomen): Abdomen is soft and nondistended. Bowel sounds are present. He did not have any pain with palpation this morning. Results & Data ([facility] [place]) Vital Signs (Past 12 Hours) Vital Signs Temp Pulse Pulse Resp BP Pulse Ox 12/11/20 22:27 36.8 C 81 14 134/71 94 12/11/20 19:18 118 H 18 95 PG Care Time/CCT Total # of Minutes Spent Total Time Spent with Patient: Total time spent is greater than 50% in coordination of care (as documented) at patient's floor/unit and/or counseling patient: Coding Level of Care Code 06741 Subseq Hosp Care Lvl 1 Diagnoses Cholecystitis K81.9
[2020-12-12 06:53] LABS: Basophils # (auto) 0.01 K/uL (0-0.2); Basophils % (auto) 0.1 %; Eosinophils # (auto) 0.18 K/uL (0-0.5); Eosinophils % (auto) 2.6 %; Hematocrit (blood only) 33.8 % (42-52); Hemoglobin 11.6 g/dL (14.0-18.0); Immature Granulocytes % (auto) 1.5 %; Lymphocytes # (auto) 0.94 K/uL (1.2-3.4); Lymphocytes % (auto) 13.7 %; Mean Corpuscular Hemoglobin 34.3 pg (25-34); Mean Corpuscular Hgb Conc 34.3 g/dL (32-36); Mean Platelet Volume 8.1 fL (7.4-10.4); Monocytes # (auto) 0.76 K/uL (0.11-0.59); Monocytes % (auto) 11.1 %; Neutrophils # (auto) 4.88 K/uL (1.4-6.5); Platelet Count 235 K/uL (130-400); RDW Coefficient of Variation 14.4 % (11.5-14.5); RDW Standard Deviation 52.7 fL (36.4-46.3); Red Blood Count 3.38 M/uL (4.7-6.1); White Blood Count 6.87 K/uL (4.8-10.8)
[2020-12-12 07:41] LABS: Calcium 7.9 mg/dl (8.5-10.1); Creatinine Clr Calc Pharmacy 77.9 ml/min; Est GFR (African American) 106.3; Est GFR (Non-African American) 91.7; Potassium 3.4 mmol/L (3.5-5.1)
[2020-12-12] MEDS: BUDESONIDE 0.5 MG/2 ML VIAL (PULMICORT) NEB SCH ×2 (07:55→19:30)
[2020-12-12] MEDS: ALBUT/IPRATROP 3MG/0.5MG NEB 3 ML VIAL INH PRN (07:56)
[2020-12-12] MEDS: FLUTICASONE/VILANTEROL 100/25MCG 14 PUFFS/INHALER INH SCH (08:30)
[2020-12-12] MEDS: FINASTERIDE 5 MG TAB PO SCH (08:30)
[2020-12-12] MEDS: CYANOCOBALAMIN 500 MCG TABLET (VITAMIN B-12) PO SCH (08:30)
--- NOTE | 2020-12-12 09:16 | Hospitalist Progress Note ---
Date of Service December 12, 2020 Assessment & Plan (1) Cholecystitis: Patient is an 89 year old male with PMHx COPD, Dementia, BPH, and Macrocytic anemia that presents after supposed mechanical fall at home, found to have elevated LFTs, hyperbilirubinemia, and findings concerning for acute c holecystitis on abdominal/pelvis CT. Acute Cholecystitis with concerns of Ascending Cholangitis secondary to choledocholithiasis Upon presentation patient did not have any physical exam signs of pain, laboratory studies demonstrated LFTs grossly elevated, AST 387, ALT 44, alk phos 220, bilirubin 4.5. CT abdomen pelvis was consistent with acute cholecystitis with choledocholithiasis, surgery was consulted in the ED recommending an MR and ERCP. GI was consulted and ER CP was performed which confirmed this diagnosis, -Surgery consulted following recommendations -Cholecystectomy Sunday -N.p.o. at midnight -ABX with Zosyn -Zofran PRN nausea -Morphine PRN pain, though patient has not explicit noted pain at this time -Tylenol PRN fever, has not required, appropriate even with acute elevations in LFTs if needed for antipyretic Shortness of breath Patient endorsing shortness of breath this morning however this was prior to receiving his scheduled inhalers. Given his symptoms and physical exam findings of coarse breath sounds left lower lobe obtain a chest x-ray demonstrating left lower lobe opacity and perihilar opacities concerning for atelectasis versus pneumonia. Given the fact that the patient is on antibiotic therapy I am more suspicious of atelectasis versus fluid. -Patient notes significant improvement with twice daily Pulmicort -Respiratory therapy ordered Concern for dementia Patient without a past medical history of dementia, however I have noticed throughout my conversations with him he is increasingly forgetful. 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 He has detailed conversations, that suggest higher level thought process is intact. However he does not remember who I am when I come to greet him in the morning. -Consider neuropsych evaluation for diagnosing dementia -Monitor for symptom progression Fall Per review of patient's recent wellness visit notes, appears to have been worsening as patient's Dementia has worsened,Head CT, Cervical Spine CT negative for acute pathology. Patient would likely benefit from PT/OT and short term rehab at SNF or inpatient rehab after his surgical complications are dealt with. -PT/OT after cholecystectomy. Elevated Troponin Troponin bump to 0.046 on presentation likely demand ischemia, no chest pain, pressure, or angina on exertion -EKG with chest pain COPD -Received breathing treatments and 40mg IV Methylprednisolone in the ED -Continue home Breo Ellipta -Albuterol PRN -Duoneb PRN BPH -Continue home Finasteride Lower Extremity Edema -Chronic per patient Macrocytic Anemia -Appears chronic secondary to hx Vitamin B12 deficiency -?Due to prior alcohol use -Will continue supplementation of B12 Dispo: Med/Surg for IVF, IV antibiotics, and continued monitoring for likely cholecystectomy and ERCP. Will likely require SNF or inpatient rehab placement after discharge. FEN: regular diet npo @ midnight DVT: SCDs Code: DNR/DNI (2) COPD (chronic obstructive pulmonary disease): (3) Fall: (4) Skin tear: (5) Benign prostatic hyperplasia with urinary obstruction: (6) Macrocytic anemia: (7) Lower extremity edema: Admission and Anticipated Discharge Date Admission Date: December 08, 2020 Subjective Patient lying in bed this morning in no acute distress. Patient reports significant improvement in his breathing with the addition of budesonide. Patient numerous questions about his surgery tomorrow including why he had to be n.p.o. at midnight. Otherwise patient is doing well, tolerating his diet, voiding, stooling, sleeping overnight. Patient continues to deny any pain all questions answered, acute concerns relate to discharge planning after surgery. Physical Exam Physical Exam: General: Lying in bed in no acute distress HEENT: Normocephalic atraumatic Neck: Normal visual inspection Cardiac: Regular rate and rhythm I did not appreciate significant murmurs rubs or gallops normal S1, normal S2, negative pedal edema Respiratory: Improved lung volumes today, clear to auscultation bilaterally, without increased work of breathing GI: Soft, nontender, nondistended, bowel sounds present all 4 quadrants Neuro: Alert and oriented x4 Psych: Calm and cooperative with interview Results & Data Results & Data ([facility]) Vital Signs (Past 12 Hours) Vital Signs Temp Pulse Resp BP Pulse Ox 12/12/20 08:17 36.6 C 75 18 163/78 H 95 12/12/20 08:00 85 18 95 12/11/20 22:27 36.8 C 81 14 134/71 94 Laboratory Results 12/12/20 12/12/20 Range/Units 06:24 06:24 WBC 6.87 (4.8-10.8) K/uL RBC 3.38 L (4.7-6.1) M/uL Hgb 11.6 L (14.0-18.0) g/dL Hct 33.8 L (42-52) % MCV 100.0 (80-100) fL MCH 34.3 H (25-34) pg MCHC 34.3 (32-36) g/dL RDW Std Deviation 52.7 H (36.4-46.3) fL RDW Coeff of Diana 14.4 (11.5-14.5) % Plt Count 235 (130-400) K/uL MPV 8.1 (7.4-10.4) fL Immature Gran % (Auto) 1.5 % Neut % (Auto) 71.0 % Lymph % (Auto) 13.7 % [place] % (Auto) 11.1 % Eos % (Auto) 2.6 % Baso % (Auto) 0.1 % Neut # (Auto) 4.88 (1.4-6.5) K/uL Lymph # (Auto) 0.94 L (1.2-3.4) K/uL [place] # (Auto) 0.76 H (0.11-0.59) K/uL Eos # (Auto) 0.18 (0-0.5) K/uL Baso # (Auto) 0.01 (0-0.2) K/uL Immature Gran # (Auto) 0.10 H (0.00-0.02) K/uL Sodium 138 (136-145) mmol/L Potassium 3.4 L (3.5-5.1) mmol/L Chloride 106 (98-107) mmol/L Carbon Dioxide 27 (21-32) mmol/L Anion Gap 5.0 (3-11) BUN 10 D (7-18) mg/dl Creatinine 0.57 L (0.6-1.4) mg/dl Est Cr Clr Drug Dosing 77.9 ml/min Est GFR ( Amer) 106.3 Est GFR (Non-Af Amer) 91.7 BUN/Creatinine Ratio 18.0 (10-20) Glucose 82 (70-99) mg/dl Calcium 7.9 L (8.5-10.1) mg/dl Medications Administered Current Inpatient Medications Acetaminophen (Acetaminophen 325 Mg Tab) 650 mg PO Q4H PRN PRN Reason: pain/fever Stop: 01/08/21 01:14 Albuterol (Albuterol Hfa 8 Gm Inhaler) 2 puffs INH Q4H PRN PRN Reason: shortness of breath Stop: 01/08/21 01:14 Last Admin: 12/11/20 13:11 Dose: 2 puffs Documented by: Albuterol (Albut/Ipratrop 3mg/0.5mg Neb 3 Ml Vial) 3 ml INH Q4H PRN PRN Reason: wheezing or shortness of breath Stop: 01/08/21 01:14 Last Admin: 12/12/20 07:56 Dose: 3 ml Documented by: Budesonide (Budesonide 0.5 Mg/2 Ml Vial (Pulmicort)) 0.5 mg NEB BIDR [facility] Stop: 01/10/21 18:59 Last Admin: 12/12/20 07:55 Dose: 0.5 mg Documented by: Cyanocobalamin (Cyanocobalamin 500 Mcg Tablet (Vitamin B-12)) 1,000 mcg PO DAILY [facility] Stop: 01/08/21 08:59 Last Admin: 12/12/20 08:30 Dose: 1,000 mcg Documented by: Finasteride (Finasteride 5 Mg Tab) 5 mg PO DAILY [facility] Stop: 01/08/21 08:59 Last Admin: 12/12/20 08:30 Dose: 5 mg Documented by: Fluticasone/Vilanterol (Fluticasone/Vilanterol 100/25mcg 14 Puffs/Inhaler) 1 puffs INH DAILY [facility] Stop: 01/08/21 08:59 Last Admin: 12/12/20 08:30 Dose: 1 puffs Documented by: Piperacillin Sod/Tazobactam (Sod 3.375 gm/ Dextrose) 115 mls @ 28.75 mls/hr IV Q8H [facility]; Protocol Stop: 12/19/20 01:59 Last Admin: 12/12/20 10:19 Dose: 28.8 mls/hr Documented by: Sodium Chloride (Nss 1000ml) 1,000 mls @ 80 mls/hr IV .[id number] [facility] Stop: 01/09/21 10:29 Last Infusion: 12/11/20 13:48 Dose: Infused Documented by: Dextrose/Lactated Ringer's (D5w And Lactated Ringers) 1,000 mls @ 100 mls/hr IV .Q10H [facility] Stop: 01/11/21 23:54 Miscellaneous Information (Piperacill/Tazobac Consult Active) 1 ea N/A UD PRN PRN Reason: Consult Stop: 01/08/21 01:14 Morphine Sulfate (Morphine Sulfate 2 Mg/Ml Carp) 1 mg IV Q3H PRN PRN Reason: Pain (1,2,3,4,5) & Pre PT Stop: 12/23/20 01:14 Morphine Sulfate (Morphine Sulfate 4 Mg/Ml 1 Ml Carp\Vial) 3 mg IV Q3H PRN PRN Reason: Pain (6,7,8,9,10) Stop: 12/23/20 01:14 Ondansetron HCl (Ondansetron Inj 2 Mg/Ml 2 Ml Vial) 4 mg IV Q6H PRN PRN Reason: Nausea Stop: 01/08/21 01:14 Resident Activity Tracking Resident Involvement: Resident Care Provided Care Provided: Adult Hospital Medicine (1) COPD (chronic obstructive pulmonary disease) COPD type: unspecified COPD Qualified Code(s): J44.9 - Chronic obstructive pulmonary disease, unspecified (2) Fall Encounter type: initial encounter Qualified Code(s): W19.XXXA - Unspecified fall, initial encounter
[2020-12-12] MEDS: ALBUTEROL HFA 8 GM INHALER INH PRN (23:54)
[2020-12-12] MEDS: D5W AND LACTATED RINGERS 1,000 ML IV SCH (23:54)
[2020-12-13] MEDS: PIPERACILLIN/TAZOBACTAM 3.375 GM in DEXTROSE 5% 100 ML IV SCH ×3 (02:12→17:30)
[2020-12-13] MEDS: ALBUT/IPRATROP 3MG/0.5MG NEB 3 ML VIAL INH PRN ×2 (02:39→13:56)
[2020-12-13] MEDS ORDERED: SUGAMMADEX SODIUM 200 MG/2 ML VIAL IV ONE (06:15)
[2020-12-13] MEDS ORDERED: LIDOCAINE HCL 2% 2 ML VIAL/AMP(20MG/ML) INFIL ONE (07:57)
[2020-12-13] MEDS ORDERED: PROPOFOL IV EMULSION 10 MG/ML 20 ML VIAL IV ONE (07:57)
[2020-12-13] MEDS ORDERED: ONDANSETRON INJ 2 MG/ML 2 ML VIAL ONE (07:57)
[2020-12-13] MEDS ORDERED: fentaNYL citrate 100 MCG/2 ML VIAL ONE (07:57)
[2020-12-13] MEDS ORDERED: DEXAMETHASONE SOD INJ 4 MG/ML VIAL ONE (07:57)
[2020-12-13] MEDS ORDERED: ROCURONIUM BROMIDE 10 MG/ML 5 ML VIAL IV ONE (07:57)
[2020-12-13] MEDS: BUDESONIDE 0.5 MG/2 ML VIAL (PULMICORT) NEB SCH ×2 (08:03→19:31)
--- NOTE | 2020-12-13 08:15 | Anesthesiology Consultation ---
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 History Surgery Operation Date: 12/09/20 07:00 Proposed Procedures p Endoscopic Retrograde Cholangiopancreatogram - Arnav Pruitt DO Operation Date: 12/13/20 09:00 Proposed Procedures p Laparoscopic Cholecystectomy - Donnie Paula MD Height/Weight Height: 5 ft 5 in Weight: 64 kg Allergies Allergy/AdvReac Type Severity Reaction Status Date / Time No Known Allergies Allergy Verified 12/08/20 19:43 Medications Home Medications Medication Instructions Recorded Confirmed Last Taken ergocalciferol (vitamin D2) 50 mcg 2,000 units PO DAILY 11/17/19 12/08/20 Unknown (2,000 unit) tablet mecobalamin (vitamin B12) 1,000 1,000 mcg PO DAILY 11/17/19 12/08/20 Unknown mcg chewable tablet albuterol sulfate 90 mcg/actuation 2 puff INH Q4H PRN #18 gm 09/09/20 12/08/20 Unknown aerosol inhaler finasteride 5 mg tablet 5 mg PO DAILY #90 tab 10/29/20 12/08/20 Unknown ipratropium 0.5 mg-albuterol 3 mg 3 ml INH Q4H PRN #360 ml 11/25/20 12/08/20 Unknown (2.5 mg base)/3 mL nebulization soln nebulizer accessories #1 ea 11/25/20 12/08/20 Unknown furosemide 20 mg tablet 20 mg PO BID #180 tab 12/01/20 12/08/20 Unknown budesonide-formoterol 2 puff INHALATION BID 12/08/20 12/08/20 Unknown Active Medications Generic Name Dose Route Start Last Admin Trade Name Freq PRN Reason Stop Dose Admin Albuterol 2 puffs 12/09/20 01:15 12/12/20 23:54 Albuterol Hfa 8 Gm Inhaler INH 01/08/21 01:14 2 puffs Q4H PRN Administration shortness of breath Albuterol 3 ml 12/09/20 01:15 12/13/20 02:39 Albut/Ipratrop 3mg/0.5mg Neb 3 Ml Vial INH 01/08/21 01:14 3 ml Q4H PRN Administration wheezing or shortness of breath Budesonide 0.5 mg 12/11/20 19:00 12/13/20 08:03 Budesonide 0.5 Mg/2 Ml Vial (Pulmicort) NEB 01/10/21 18:59 0.5 mg BIDR GAURI Administration Cyanocobalamin 1,000 mcg 12/09/20 09:00 12/12/20 08:30 Cyanocobalamin 500 Mcg Tablet (Vitamin B-12) PO 01/08/21 08:59 1,000 mcg DAILY GAURI Administration Finasteride 5 mg 12/09/20 09:00 12/12/20 08:30 Finasteride 5 Mg Tab PO 01/08/21 08:59 5 mg DAILY GAURI Administration Fluticasone/Vilanterol 1 puffs 12/09/20 09:00 12/12/20 08:30 Fluticasone/Vilanterol 100/25mcg 14 Puffs/Inhaler INH 01/08/21 08:59 1 puffs DAILY GAURI Administration Piperacillin Sod/Tazobactam 115 mls @ 28.75 mls/hr 12/09/20 02:00 12/13/20 06:18 Sod 3.375 gm/ Dextrose IV 12/19/20 01:59 Infused Q8H GAURI Infusion Protocol Sodium Chloride 1,000 mls @ 80 mls/hr 12/10/20 10:30 12/11/20 13:48 Nss 1000ml IV 01/09/21 10:29 Infused .[id number] GAURI Infusion Dextrose/Lactated Ringer's 1,000 mls @ 100 mls/hr 12/12/20 23:55 12/12/20 23:54 D5w And Lactated Ringers IV 01/11/21 23:54 100 mls/hr .Q10H GAURI Administration NPO Date Last Intake of Fluids: 12/12/20 Time Last Intake of Fluids: 23:59 Date Last Intake of Solids: 12/12/20 Time Last Intake of Solids: 18:00 Past Medical History Medical History 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 COPD (chronic obstructive pulmonary disease) Degenerative arthritis of knee, bilateral Dementia H/O hearing loss H/O squamous cell carcinoma H/O varicose veins H/O vitamin D deficiency History of basal cell carcinoma Venous insufficiency Past Family History Family History Mother Acquired amyotrophic lateral sclerosis Father Throat cancer Laryngeal cancer Denies family history of Prostate cancer Past Surgical History Surgical History H/O repair of rotator cuff H/O thoracic aortic aneurysm repair History of lithotripsy History of tooth extraction Hx of cataract surgery Hx of colonoscopy Social History Smoking Status: Former smoker tobacco type: pipe Do You Dip or Chew Tobacco: No Hx Alcohol Use: Yes Alcohol type: beer alcohol intake frequency: a few times a month Hx Substance Use: No Physical Exam Vital Signs Last Vital Signs Temp 97.5 F L 12/13/20 07:05 Pulse 74 12/13/20 08:04 Resp 16 12/13/20 08:04 BP 170/84 H 12/13/20 07:05 Pulse Ox 94 12/13/20 08:04 Testing Laboratory Results 12/12/20 06:24 12/12/20 06:24 Urine Color Dark Yellow 12/08/20 22:55 Urine Appearance Clear (Clear) 12/08/20 22:55 Urine pH 6.5 (4.5-7.5) 12/08/20 22:55 Ur Specific [place] 1.045 (1.000-1.030) H 12/08/20 22:55 Urine Protein Trace (Negative) H 12/08/20 22:55 Urine Glucose (UA) Negative (Negative) 12/08/20 22:55 Urine Ketones 2+ (Negative) H 12/08/20 22:55 Urine Nitrite Positive (Negative) A 12/08/20 22:55 Ur Leukocyte Esterase Negative (Negative) 12/08/20 22:55 Urine WBC (Auto) 1-5 /hpf (0-5) 12/08/20 22:55 Urine RBC (Auto) 5-10 /hpf (0-4) H 12/08/20 22:55 U Hyaline Cast (Auto) 1-5 /lpf (0-5) 12/08/20 22:55 U Epithel Cells (Auto) 5-10 /lpf (0-5) H 12/08/20 22:55 Urine Bacteria (Auto) Negative (Negative) 12/08/20 22:55 Electrocardiogram Date: 12/08/20 HR 88. Sinus rhythm with 1st degree AV block with PAC's. Otherwise normal ECG. Chest X-Ray Date: 12/08/20 SINGLE VIEW CHEST CLINICAL HISTORY: Generalized weakness. FINDINGS: An AP, portable, upright chest radiograph is compared to study dated 04/20/2020 and correlated with chest CT dated 05/08/2018. The examination is degraded by portable technique and patient rotation. The heart is enlarged and there is atherosclerotic calcification of the thoracic aorta. The pulmonary vasculature is noncongested. Prominence of the central pulmonary vessels likely represents pulmonary artery hypertension. Emphysema and chronic interstitial thickening are similar to previous. Foci of parenchymal scarring/atelectasis are seen throughout both lungs. There is no evidence of superimposed airspace consolidation or large pleural effusion. There is no pneumothorax. The skeletal structures are osteopenic. Degenerative change is noted throughout the thoracic spine and in the shoulders. IMPRESSION: Cardiomegaly and emphysema with no acute cardiopulmonary abnormality. Echocardiogram Date: 12/09/20 Normal LV size and systolic function. EF 60-65%. No RWMA. Mild LVH. Mildly d ilated RV with normal systolic function. Mild LAD. Mildly dilated aortic root and ascending aorta.
--- NOTE | 2020-12-13 08:59 | History & Physical Bridge Note ---
Date of Service December 13, 2020 History & Physical Bridge Note I have examined the patient, reviewed the History & Physical and in the interval since the performance of the History & Physical I have noted the following changes of clinical significance: no changes noted Supervising Physician Co-Signing Physician Notes Resident Physician Supervision Note: I independently interviewed and examined the patient and verified the anand history and physical, reviewed labs and image studies, discussed the case with the resident Dr. Quirino Andrade and agree with the findings and care plan.
[2020-12-13] MEDS ORDERED: ceFAZolin 2000MG 2,000 MG/15 ML SYR IV ONE (09:00)
[2020-12-13] MEDS ORDERED: fentaNYL citrate 100 MCG/2 ML VIAL IV PRN (09:07)
[2020-12-13] MEDS ORDERED: ONDANSETRON INJ 2 MG/ML 2 ML VIAL IV PRN (09:07)
[2020-12-13] MEDS ORDERED: ePHEDrine sulfate 50 MG/ML AMP IV PRN (09:07)
[2020-12-13] MEDS ORDERED: ATROPINE SULFATE 0.1 MG/ML 10ML SYR IV PRN (09:07)
[2020-12-13] MEDS ORDERED: BUPIVACAINE 0.5 % 5 MG/1 ML MPF 30ML VIAL ONE (09:15)
[2020-12-13] MEDS ORDERED: LIDOCAINE HCL 1% 20 ML VIAL ONE (09:15)
[2020-12-13] MEDS ORDERED: BACITRACIN OINT 15 GM TUBE ONE (09:15)
[2020-12-13] MEDS ORDERED: ePHEDrine sulfate 50 MG/ML SYR ONE (10:17)
--- NOTE | 2020-12-13 10:29 | Hospitalist Progress Note ---
Date of Service December 13, 2020 Assessment & Plan (1) Cholecystitis: Patient is an 89 year old male with PMHx COPD, Dementia, BPH, and Macrocytic anemia that presents after supposed mechanical fall at home, found to have elevated LFTs, hyperbilirubinemia, and findings concerning for acute c holecystitis on abdominal/pelvis CT. Acute Cholecystitis with concerns of Ascending Cholangitis secondary to choledocholithiasis - no subjective pain on admission in setting of elevated LFTs incidentally found on CT abd/pelv in ER - MRCP, ERCP workup confirming acute cholecystitis with ascending cholangitis - Cholecystectomy 12/13 - Abx zosyn since 12/08 - Tylenol, Morphine PRN for pain - appreciate ongoing recs from surgery/GI - WBC 6.87 today, afebrile Shortness of breath - likely due to not getting inhalers on admission. have been restarted at this time - incentive spirometry, O2 support as needed goal spO2 >90 - CXR showing LL opacity, perihilar opacities atelectasis vs. 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 Elevated Troponin - Troponin bump to 0.046 on presentation likely demand ischemia, downtrended, no chest pain, pressure, or angina on exertion -EKG with chest pain COPD - Received breathing treatments and 40mg IV Methylprednisolone in the ED - Continue home Breo Ellipta - Duoneb PRN BPH - Continue home Finasteride Lower Extremity Edema - Chronic per patient Macrocytic Anemia - Appears chronic secondary to hx Vitamin B12 deficiency -?Due to prior alcohol use -Will continue supplementation of B12 Dispo: Will likely require SNF or inpatient rehab placement after discharge. PT/OT pending. FEN: regular diet DVT: SCDs Code: DNR/DNI (2) COPD (chronic obstructive pulmonary disease): (3) Fall: (4) Skin tear: (5) Benign prostatic hyperplasia with urinary obstruction: (6) Macrocytic anemia: (7) Lower extremity edema: Admission and Anticipated Discharge Date Admission Date: December 08, 2020 Supervising Physician Co-Signing Physician Notes I personally examined the patient and verified all anand points of history and exam, discussed case, and agree with decision making with Dr Barrios. Seen postop, feeling okay overall. No significant pain. Has eaten all of his broth, and is eating his Jell-O with much vigor. Asks a lot of technical questions about the surgery, which I answered to the best of my ability, noting that I would have to defer to general surgery for more detailed answers. Vitals noted, in general he is awake and alert pleasant no distress. HEENT nor mocephalic atraumatic mucous membranes are moist. Breathing unlabored no accessory muscle use good effort. Skin shows no rashes no pallor or icterus. Neuro shows no focal deficits. Cholecystitis/cholangitis/choledocholithiasisnow improved postop. Continue antibiotics and supportive care, advance diet, hopefully discharge in the near future. PT/OT eval and treat. Otherwise as above. Results & Data Results & Data ([facility]) Vital Signs (Past 12 Hours) Vital Signs Temp Pulse Pulse Resp BP Pulse Ox 12/13/20 09:00 134/72 12/13/20 08:38 36.4 C L 58 L 22 143/102 H 98 12/13/20 08:04 74 16 94 12/13/20 07:05 36.4 C L 16 L 64 16 170/84 H 98 12/13/20 02:40 71 20 95 12/12/20 23:03 36.8 C 72 14 150/81 H 94 Resident Activity Tracking Resident Involvement: Resident Care Provided Care Provided: Adult Hospital Medicine (1) COPD (chronic obstructive pulmonary disease) COPD type: unspecified COPD Qualified Code(s): J44.9 - Chronic obstructive pulmonary disease, unspecified (2) Fall Encounter type: initial encounter Qualified Code(s): W19.XXXA - Unspecified fall, initial encounter
[2020-12-13] MEDS ORDERED: PHENYLEPHRINE 100MCG/ML 5ML SYR ONE (10:37)
--- NOTE | 2020-12-13 10:52 | Post Operative Brief Note ---
Immediate Post Op Note v1 Date of Surgery December 13, 2020 Pre & Post Diagnosis Operation Date: 12/09/20 07:00 Pre-Op Diagnosis: cholangitis Post-Op Diagnosis: cholangitis Operation Date: 12/13/20 09:00 Pre-Op Diagnosis: Acute Cholecystitis, cholelithiasis, Post-Op Diagnosis: Acute Cholecystitis, cholelithiasis I identified the patient and participated in the time-out.: Yes Procedure Operation Date: 12/09/20 07:00 Actual Procedures p Endoscopic Retrograde Cholangiopancreatogram(Not Applicable) - Arnav Pruitt DO Operation Date: 12/13/20 09:00 Actual Procedures p Laparoscopic Cholecystectomy(Not Applicable) - Donnie Paula MD Surgeon Donnie Paula MD Capacity Analyst SHIRLEY Giordano Estimated Blood Loss 10 Findings Consistent with Post-Op Diagnosis Fluids 700ml Specimens gallbladder Anesthesia Type General Complications none Disposition Accompanied Patient To Recovery: Yes Disposition: Recovery Room Overlapping Procedure I was immediately available: during the entire case.
--- NOTE | 2020-12-13 11:56 | Anesthesiology Progress Note ---
Date of Service December 13, 2020 Anesthesia Post Procedure Vital Signs Vital Signs: Temp Pulse Pulse Resp BP BP Pulse Ox 12/13/20 11:50 97.3 F L 73 18 138/90 98 12/13/20 11:40 74 22 136/78 98 12/13/20 11:30 73 20 144/70 H 96 12/13/20 11:20 79 13 131/74 98 12/13/20 11:14 98.8 F 78 19 141/90 H 97 12/13/20 09:00 134/72 12/13/20 08:38 97.5 F L 58 L 22 143/102 H 98 12/13/20 08:04 74 16 94 12/13/20 07:05 97.5 F L 16 L 64 16 170/84 H 98 12/13/20 02:40 71 20 95 12/12/20 23:03 98.2 F 72 14 150/81 H 94 12/12/20 19:32 75 18 93 12/12/20 15:45 97.5 F L 71 18 127/79 95 Transfer of Care Handoff Completed per policy Notes Mental Status: alert / awake / arousable and participated in evaluation Patient Amnestic to Procedure: Yes Nausea / Vomiting: adequately controlled Pain: adequately controlled Airway Patency, RR, SpO2: stable & adequate BP & HR: stable & adequate Hydration State: stable & adequate Anesthetic Complications: no major complications apparent and Pt Satisfied with anesthetic care
[2020-12-13] MEDS ORDERED: NEBULIZER ACCESSORIES PO PRN (12:09)
[2020-12-13] MEDS: FLUTICASONE/VILANTEROL 100/25MCG 14 PUFFS/INHALER INH SCH (13:08)
[2020-12-13] MEDS: FINASTERIDE 5 MG TAB PO SCH (13:08)
[2020-12-13] MEDS: CYANOCOBALAMIN 500 MCG TABLET (VITAMIN B-12) PO SCH (13:08)
[2020-12-13] MEDS: D5W AND LACTATED RINGERS 1,000 ML IV SCH (14:21)
--- NOTE | 2020-12-13 18:15 | Operative Report (OR) ---
DATE OF OPERATION: 12/13/2020 PREOPERATIVE DIAGNOSES: Acute cholecystitis, cholelithiasis. POSTOPERATIVE DIAGNOSES: Acute cholecystitis, cholelithiasis. OPERATION: Laparoscopic cholecystectomy. SURGEON: Donnie Paula MD. FILM RECORDIST: Nafisa Conley PA-C. ANESTHESIA: General. ESTIMATED BLOOD LOSS: About 10 mL. FINDINGS: Acute cholecystitis with cholelithiasis. COMPLICATIONS: None. INDICATIONS FOR THE PROCEDURE: This is an 89-year-old gentleman who was admitted to the hospital for acute cholecystitis with cholelithiasis. The patient had an ERCP 3 days ago and now patient required to do a laparoscopic cholecystectomy, possible open, possible cholangiogram. I did talk to the patient about the benefit, the risk, alternate procedure. I indicated the risks may include but not limited to such as bleeding, infection, injury to common bile duct, injury to the bowel, DVT, myocardial infarction, stroke and even . The patient understands. He signed informed consent and I answered all questions. DETAILS OF PROCEDURE: After we identified the patient and verified the procedure, we brought the patient to the OR, put the patient in the supine position. The patient received SCD on bilateral legs to prevent DVT. Also, patient received 3.375 grams of Zosyn IV for prophylactic antibiotic. The patient received general anesthesia without difficulty. The abdomen was prepped and draped in routine sterile fashion. After timeout, we injected the local anesthesia by using 1% lidocaine mixed with 0.5% Marcaine just below the umbilicus. Then I made a small incision just below on umbilicus, opened fascia and opened peritoneum under direct vision, put a Katty trocar in, connected to CO2 to create pneumoperitoneum, flow rate at 6 liters per minute, pressure not more than 14 mmHg. Once we got a nice pneumoperitoneum, we put the camera in, looked around the abdomen, shows normal finding on the liver. However, the gallbladder shows a significant gallbladder wall inflammation with gallbladder wall thickening, edema, confirmed the diagnosis of acute cholecystitis. Then, we put another two 5 mm trocars in the right upper quadrant, one 11 trocar in the epigastric area. Once all trocars in, we put a grasper to hold the base of gallbladder, put in the direction to the diaphragm and another grasper to hold the pouch of gallbladder, put a lateral to expose the triangle of [place]. The cystic duct was identified and mobilized. I put two 10 mm metal clips on the proximal cystic duct, one on the distal cystic duct. Rechecked, no active bleeding, no bile leak after we used a scissor for transection of the cystic duct. The cystic artery was identified and mobilized. I put two 10 mm metal clips on the proximal cystic artery, one on the distal cystic artery and used a scissor for transection of cystic artery. Rechecked, no active bleeding. Then we used the Bovie to take down gallbladder from the liver bed. Rechecked, no active bleeding, no bile leak from the liver bed. Then we removed gallbladder through the catch bag. Then we reinserted Katty trocar in, connected to CO2 to create pneumoperitoneum, again looked around the abdomen, no active bleeding, no bile leak from the liver bed. Then we removed all trocars under direct vision. No active bleeding from the trocar sites. Pneumoperitoneum was released, then I closed the umbilical incision, fascial layer by using 0 Vicryl [id number] x2, closed subcutaneous layer by using 2-0 Vicryl interruptedly, closed skin by using 4-0 Vicryl continuous running, closed the epigastric incision, fascial layer by using 0 Vicryl [id number] x2, closed subcutaneous layer by using 2-0 Vicryl interruptedly and closed skin by using 4-0 Vicryl interruptedly, closed another two 5 mm trocar site skin only by using 4-0 Vicryl. Then, we put the dressing on. The patient tolerated the procedure well. All instrument, needle, sponge count were correct x2 at the end of the case. The patient was transferred to recovery room in stable condition. The specimen was sent to pathology. After the procedure, I did talk to the patient about the OR finding and the procedure we did. The rehabilitation assistant, Nafisa, is necessary for this procedure. Her role is to hold the camera, retraction and exposure. I attest to the content of the Intraoperative Record and any orders documented therein. Any exception s are noted below.
[2020-12-13] MEDS: FUROSEMIDE 20 MG TAB PO SCH (20:34)
[2020-12-13] MEDS: ALBUTEROL HFA 8 GM INHALER INH PRN (20:34)
--- NOTE | 2020-12-13 20:38 | Billing Data ---
Date of Service December 13, 2020 Coding Level of Care Code 78747 Subseq Hosp Care Lvl 2
[2020-12-14] MEDS: D5W AND LACTATED RINGERS 1,000 ML IV SCH ×3 (00:33→22:02)
[2020-12-14] MEDS: PIPERACILLIN/TAZOBACTAM 3.375 GM in DEXTROSE 5% 100 ML IV SCH ×3 (02:45→18:28)
[2020-12-14 06:30] LABS: Eosinophils # (auto) 0.07 K/uL (0-0.5); Eosinophils % (auto) 0.6 %; Hematocrit (blood only) 32.1 % (42-52); Hemoglobin 10.9 g/dL (14.0-18.0); Immature Granulocytes # (auto) 0.13 K/uL (0.00-0.02); Immature Granulocytes % (auto) 1.1 %; Lymphocytes # (auto) 1.24 K/uL (1.2-3.4); Lymphocytes % (auto) 10.7 %; Mean Corpuscular Hemoglobin 34.3 pg (25-34); Mean Corpuscular Volume 100.9 fL (80-100); Monocytes # (auto) 0.75 K/uL (0.11-0.59); Monocytes % (auto) 6.4 %; Neutrophils # (auto) 9.44 K/uL (1.4-6.5); Neutrophils % (auto) 81.2 %; Platelet Count 243 K/uL (130-400); RDW Coefficient of Variation 14.5 % (11.5-14.5); RDW Standard Deviation 53.3 fL (36.4-46.3); Red Blood Count 3.18 M/uL (4.7-6.1); White Blood Count 11.63 K/uL (4.8-10.8)
[2020-12-14 07:05] LABS: Albumin Level 2.2 gm/dl (3.4-5.0); Calcium 7.5 mg/dl (8.5-10.1); Creatinine Clr Calc Pharmacy 83.8 ml/min; Est GFR (African American) 109.5; Est GFR (Non-African American) 94.5; Potassium 3.3 mmol/L (3.5-5.1)
[2020-12-14 07:08] LABS: Albumin Globulin Ratio 0.8 (0.9-2); Bilirubin,Total 0.9 mg/dl (0.2-1); Globulin 2.8 gm/dl (2.5-4.0)
[2020-12-14] MEDS: ALBUT/IPRATROP 3MG/0.5MG NEB 3 ML VIAL INH PRN (07:09)
[2020-12-14] MEDS: BUDESONIDE 0.5 MG/2 ML VIAL (PULMICORT) NEB SCH ×2 (07:10→19:40)
[2020-12-14] MEDS: ALBUTEROL HFA 8 GM INHALER INH PRN (07:24)
[2020-12-14] MEDS: CHOLECALCIFEROL 1,000 UNITS 25 MCG TAB PO SCH (08:23)
[2020-12-14] MEDS: FLUTICASONE/VILANTEROL 100/25MCG 14 PUFFS/INHALER INH SCH (08:23)
[2020-12-14] MEDS: FUROSEMIDE 20 MG TAB PO SCH ×2 (08:23→20:34)
[2020-12-14] MEDS: FINASTERIDE 5 MG TAB PO SCH (08:23)
[2020-12-14] MEDS: CYANOCOBALAMIN 500 MCG TABLET (VITAMIN B-12) PO SCH (08:23)
--- NOTE | 2020-12-14 09:50 | Hospitalist Progress Note ---
Date of Service December 14, 2020 Assessment & Plan (1) Cholecystitis: Patient is an 89 year old male with PMHx COPD, Dementia, BPH, and Macrocytic anemia that presents after supposed mechanical fall at home, found to have elevated LFTs, hyperbilirubinemia, and findings concerning for acute c holecystitis on abdominal/pelvis CT. POD#1 s/p Cholecystectomy - Cholecystectomy 12/13 - Abx zosyn since 12/08 - Tylenol, Morphine PRN for pain - appreciate ongoing recs from surgery/GI Falls - multiple increasing falls at home even with walker support - long hx arthritis/pain in BL ankles and knees - likely will need SNF for some time, PT eval pending Shortness of breath - likely due to not getting inhalers on admission. 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 Elevated Troponin - Troponin bump to 0.046 on presentation likely demand ischemia, downtrended, no chest pain, pressure, or angina on exertion - EKG with chest pain COPD - Received breathing treatments and 40mg IV Methylprednisolone in the ED - Continue home Breo Ellipta - Duoneb PRN BPH - Continue home Finasteride Lower Extremity Edema - Chronic per patient Macrocytic Anemia - Appears chronic secondary to hx Vitamin B12 deficiency - Due to prior alcohol use - Will continue supplementation of B12 Dispo: Will likely require SNF or inpatient rehab placement after discharge. OT recommended home services. PT new eval post op required with hx falls. FEN: regular diet DVT: SCDs Code: DNR/DNI (2) COPD (chronic obstructive pulmonary disease): (3) Fall: (4) Skin tear: (5) Benign prostatic hyperplasia with urinary obstruction: (6) Macrocytic anemia: (7) Lower extremity edema: Admission and Anticipated Discharge Date Admission Date: December 08, 2020 Supervising Physician Co-Signing Physician Notes I personally examined the patient and verified all anand points of history and exam, discussed case, and agree with decision making with Dr Barrios. Eating dinner. Tolerating well. Anticipates rehab. Vitals noted, in general he is awake and alert pleasant no distress. HEENT normocephalic atraumatic mucous membranes are moist. Breathing unlabored no accessory muscle use good effort. Skin shows no rashes no pallor or icterus. Neuro shows no focal deficits. Cholecystitis/cholangitis/choledocholithiasisdoing well, postop day 1. Tolerating regular diet. Continue supportive care. Continue PT/OThopefully SNF once approved Subjective feeling well this morning. passing some gas, no bowel movement after surgery yet. feeling hungry. Review of Systems Constitutional: no fever, no chills, no body aches and no fatigue Respiratory: no cough and no dyspnea Cardiovascular: no chest pain, no dyspnea and no edema Gastrointestinal: no abdominal pain, no bloating, no nausea, no vomiting, no cramping, no constipation and no diarrhea/loose stools Physical Exam Physical Exam: Constitutional:in no apparent distress, sitting comfortably in bed, healing lacerations on left side of head Eyes: EOMI, pupils equal and reactive bilaterally, no scleral icterus Cardiac: RRR, no murmurs, gallops or rubs. Normal S1, S2 Pulm: CTA BL, no wheezes, rhonchi, crackles or rubs, moving air well throughout both lungs Abd: soft, nontender, nondistended, normal bowel sounds, no rebound or guarding Extremities: 2+ peripheral pulses, no edema Neuro: no focal deficits, moving all 4 limbs, A&Ox3 Results & Data Results & Data ([facility]) Vital Signs (Past 12 Hours) Vital Signs Temp Pulse Resp BP Pulse Ox 12/14/20 07:11 86 20 96 12/14/20 07:03 36.7 C 62 18 116/53 L 94 12/13/20 23:23 36.6 C 80 18 112/53 L 93 Resident Activity Tracking Resident Involvement: Resident Care Provided Care Provided: Adult Hospital Medicine (1) COPD (chronic obstructive pulmonary disease) COPD type: unspecified COPD Qualified Code(s): J44.9 - Chronic obstructive pulmonary disease, unspecified (2) Fall Encounter type: initial encounter Qualified Code(s): W19.XXXA - Unspecified fall, initial encounter
--- NOTE | 2020-12-14 12:09 | Progress Note ---
Date of Service F/U S/P laparoscopic cholecystectomy, POD 1 pt is doing fine, no nausea, no vomiting, no fever, tolerated clear diet, December 14, 2020 Assessment & Plan (1) Ascending cholangitis: 89 year-old male s/p fall after tripping who presented to ED and found to have leukocytosis, tachycardia and tachypneic in the ED with elevated t. bili, lfts, alk phos and CT scan concerning for acute cholecystitis and choledocholithiasis. Concern for ascending cholangitis given leukocytosis. Ab dominal examination is benign with no abdominal pain as presenting issues but with a few days of vomiting Plan: Discussed with GI who is planning for ERCP today Will determine timing of cholecystectomy either Sunday or Sunday depending on ERCP timing. Dr. Paula does not want to do tandem procedure given his age and prolonged anesthesia. Continue current management: IV fluids, IV Zosyn, pain management as needed NPO status for planned ERCP continue medical management 12/14/2020 12:06PM S/P lap herminio POD 1 doing fine, regular diet, pt can be discharged today. pt's daughter wants pt go to rehab for 1-2 weeks, keep the dressing on for 3 days, he can take a shower on 12/17/2020, no heavy lifting > 25 LBS for 4 weeks, f/u me in 2 weeks, thank,s sign off today, please call with questions, (2) Cholecystitis: (3) Fall: Dr. Paula has seen patient and present during my examination. Agrees with above. 12/10/2020 1:16PM F/U cholelithiasis, S/P ERCP, doing better, no abdominal pain, I recommend to do laparoscopic cholecystectomy, possible open or cholangiogram, on next Sunday, D/W benefits, risks and alternatives of the surgery, the risks - infection, bleeding injury CBD, or bowel, MD, DVT, stroke , pt understood, he agrees with the surgery, I answered all questions, operations asst surgery cover weekend, thanks, NPO after MN on Sunday, regular diet now, Encounter type: initial encounter Qualified Code(s): W19.XXXA - Unspecified fall, initial encounter Admission and Anticipated Discharge Date Admission Date: December 08, 2020 Supervising Physician Co-Signing Physician Notes I personally examined the patient and verified all anand points of history and exam, discussed case, and agree with decision making with Dr Barrios. Seen postop, feeling okay overall. No significant pain. Has eaten all of his broth, and is eating his Jell-O with much vigor. Asks a lot of technical questions about the surgery, which I answered to the best of my ability, noting that I would have to defer to general surgery for more detailed answers. Vitals noted, in general he is awake and alert pleasant no distress. HEENT normocephalic atraumatic mucous membranes are moist. Breathing unlabored no accessory muscle use good effort. Skin shows no rashes no pallor or icterus. Neuro shows no focal deficits. Cholecystitis/cholangitis/choledocholithiasisnow improved postop. Continue antibiotics and supportive care, advance diet, hopefully discharge in the near future. PT/OT eval and treat. Otherwise as above. Subjective Patient offers no specific complaints this morning. He denies any nausea or vomiting. He denies any fevers, shakes, chills. He denies any abdominal pain at the present time. Physical Exam Constitutional: WD/WN, vitals as above well developed and well nourished Eyes: PERRL, conjunctivae normal, anicteric sclerae ENMT: external ear and nose normal, oropharynx normal Neck: trachea midline, no thyromegaly Respiratory: normal respiratory effort, lungs clear to auscultation normal respiratory effort Cardiovascular: RRR, no murmur, no edema Gastrointestinal (Abdomen): normal bowel sounds, soft, nontender, no hepatosplenomegaly Percussion/Palpation: abdomen soft all incisions intact, no redness, no drainage, Musculoskeletal: no cyanosis or clubbing, extremities motor strength 5/5 Skin: no rashes, warm and dry Neurologic: awake Psychiatric: Orientation: alert and oriented x 3 Results & Data ([facility]) Vital Signs (Past 12 Hours) Vital Signs Temp Pulse Resp BP Pulse Ox 12/14/20 07:11 86 20 96 12/14/20 07:03 36.7 C 62 18 116/53 L 94 Laboratory Results Abnormal lab results 12/14/20 12/14/20 Range/Units 06:14 06:14 WBC 11.63 H (4.8-10.8) K/uL RBC 3.18 L (4.7-6.1) M/uL Hgb 10.9 L (14.0-18.0) g/dL Hct 32.1 L (42-52) % MCV 100.9 H (80-100) fL MCH 34.3 H (25-34) pg RDW Std Deviation 53.3 H (36.4-46.3) fL Neut # (Auto) 9.44 H (1.4-6.5) K/uL [place] # (Auto) 0.75 H (0.11-0.59) K/uL Immature Gran # (Auto) 0.13 H (0.00-0.02) K/uL Potassium 3.3 L (3.5-5.1) mmol/L Creatinine 0.53 L (0.6-1.4) mg/dl Glucose 120 H (70-99) mg/dl Calcium 7.5 L (8.5-10.1) mg/dl ALT 80 H (12-78) U/L Total Protein 5.0 L (6.4-8.2) gm/dl Albumin 2.2 L (3.4-5.0) gm/dl Albumin/Globulin Ratio 0.8 L (0.9-2)
--- NOTE | 2020-12-14 20:27 | Billing Data ---
Date of Service December 14, 2020 Coding Level of Care Code 51284 Subseq Hosp Care Lvl 2
[2020-12-15] MEDS: PIPERACILLIN/TAZOBACTAM 3.375 GM in DEXTROSE 5% 100 ML IV SCH ×3 (01:53→17:42)
[2020-12-15] MEDS: BUDESONIDE 0.5 MG/2 ML VIAL (PULMICORT) NEB SCH ×2 (07:19→19:53)
[2020-12-15] MEDS: ALBUTEROL HFA 8 GM INHALER INH PRN (07:44)
[2020-12-15] MEDS: D5W AND LACTATED RINGERS 1,000 ML IV SCH ×2 (08:38→20:12)
--- NOTE | 2020-12-15 09:42 | Hospitalist Progress Note ---
Date of Service December 15, 2020 Assessment & Plan (1) Cholecystitis: Patient is an 89 year old male with PMHx COPD, Dementia, BPH, and Macrocytic anemia that presents after supposed mechanical fall at home, found to have elevated LFTs, hyperbilirubinemia, and findings concerning for acute c holecystitis on abdominal/pelvis CT. 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 BPH - Continue home Finasteride Lower Extremity Edema - Chronic per patient Macrocytic Anemia - Appears chronic secondary to hx Vitamin B12 deficiency - Due to prior alcohol use - Will continue supplementation of B12 Dispo: Rehab authorization pending FEN: regular diet DVT: SCDs Code: DNR/DNI (2) COPD (chronic obstructive pulmonary disease): (3) Fall: (4) Skin tear: (5) Benign prostatic hyperplasia with urinary obstruction: (6) Macrocytic anemia: (7) Lower extremity edema: Admission and Anticipated Discharge Date Admission Date: December 08, 2020 Supervising Physician Co-Signing Physician Notes I personally examined the patient and verified all anand points of history and exam, discussed case, and agree with decision making with Dr Barrios. Seen walking in the halls with therapy. Slow, may be a little bit unsteady, stooped forward, using a walker. Later I was asked to complete a peer to peerpeer to peer physician read the PT note to medefining physical therapy terms to me, and then saying because the patient was doing well enough they did not meet skilled criteria. I explained my concern on clinical gestaltolder frail gentleman whose had surgery, has been in the hospital for about a week, who does not have significant support at home, who appears a bit more of a fall risk in person then I believe the PT notes would suggest. I then reviewed today's PT note, and she asked us to send it for her to reconsider. Vitals noted, in general he is awake and alert pleasant no distress. HEENT normocephalic atraumatic mucous membranes are moist. Breathing unlabored no accessory muscle use good effort. Skin shows no rashes no pallor or icterus. Neuro shows no focal deficits. Cholecystitis/cholangitis/choledocholithiasisdoing well, postop day 2. T olerating regular diet. Continue supportive care. Continue PT/OThopefully SNF once approved, [id number] completed Subjective No complaints this morning. Walking with walker and support, still having significant trouble.Working with PT. Review of Systems Constitutional: no fever, no chills, no body aches and no fatigue Respiratory: no cough and no dyspnea Cardiovascular: no chest pain, no dyspnea and no edema Gastrointestinal: no abdominal pain, no nausea, no vomiting, no constipation and no diarrhea/loose stools Physical Exam Physical Exam: Constitutional:in no apparent distress, sitting comfortably in bed, healing lacerations on left side of head Eyes: EOMI, pupils equal and reactive bilaterally, no scleral icterus Cardiac: RRR, no murmurs, gallops or rubs. Normal S1, S2 Pulm: CTA BL, no wheezes, rhonchi, crackles or rubs, moving air well throughout both lungs Abd: soft, nontender, nondistended, normal bowel sounds, no rebound or guarding, surgical incisions healing well Extremities: 2+ peripheral pulses, no edema Neuro: no focal deficits, moving all 4 limbs, A&Ox3 Results & Data Results & Data ([facility]) Vital Signs (Past 12 Hours) Vital Signs Temp Pulse Pulse Resp BP Pulse Ox 12/15/20 07:21 71 18 95 12/15/20 06:59 36.4 C L 67 16 139/78 95 12/14/20 22:06 36.6 C 67 18 160/81 H 98 Resident Activity Tracking Resident Involvement: Resident Care Provided Care Provided: Adult Hospital Medicine (1) COPD (chronic obstructive pulmonary disease) COPD type: unspecified COPD Qualified Code(s): J44.9 - Chronic obstructive pulmonary disease, unspecified (2) Fall Encounter type: initial encounter Qualified Code(s): W19.XXXA - Unspecified fall, initial encounter
[2020-12-15] MEDS: CYANOCOBALAMIN 500 MCG TABLET (VITAMIN B-12) PO SCH (10:07)
[2020-12-15] MEDS: FLUTICASONE/VILANTEROL 100/25MCG 14 PUFFS/INHALER INH SCH (10:07)
[2020-12-15] MEDS: FINASTERIDE 5 MG TAB PO SCH (10:07)
[2020-12-15] MEDS: CHOLECALCIFEROL 1,000 UNITS 25 MCG TAB PO SCH (10:07)
[2020-12-15] MEDS: FUROSEMIDE 20 MG TAB PO SCH ×2 (10:07→20:12)
[2020-12-15] MEDS: ALBUT/IPRATROP 3MG/0.5MG NEB 3 ML VIAL INH PRN ×2 (13:56→19:53)
[2020-12-15] MEDS ORDERED: Nursing to Pharmacy Communication SCH (18:00)
[2020-12-15] MEDS ORDERED: POLYETHYLENE (MIRALAX) 17 GM PACK PO PRN (19:35)
--- NOTE | 2020-12-15 20:06 | Billing Data ---
Date of Service December 15, 2020 Coding Level of Care Code 33120 Subseq Hosp Care Lvl 2
[2020-12-16] MEDS: ALBUTEROL HFA 8 GM INHALER INH PRN ×2 (01:31→02:45)
[2020-12-16] MEDS: PIPERACILLIN/TAZOBACTAM 3.375 GM in DEXTROSE 5% 100 ML IV SCH ×2 (01:31→10:01)
[2020-12-16] MEDS: ALBUT/IPRATROP 3MG/0.5MG NEB 3 ML VIAL INH PRN ×2 (02:49→07:11)
[2020-12-16] MEDS: D5W AND LACTATED RINGERS 1,000 ML IV SCH (05:36)
[2020-12-16] MEDS: BUDESONIDE 0.5 MG/2 ML VIAL (PULMICORT) NEB SCH (07:11)
[2020-12-16] MEDS ORDERED: POLYETHYLENE (MIRALAX) 17 GM PACK PO SCH (09:30)
[2020-12-16] MEDS: FLUTICASONE/VILANTEROL 100/25MCG 14 PUFFS/INHALER INH SCH (09:48)
[2020-12-16] MEDS: FINASTERIDE 5 MG TAB PO SCH (09:48)
[2020-12-16] MEDS: CHOLECALCIFEROL 1,000 UNITS 25 MCG TAB PO SCH (09:48)
[2020-12-16] MEDS: CYANOCOBALAMIN 500 MCG TABLET (VITAMIN B-12) PO SCH (09:48)
[2020-12-16] MEDS: FUROSEMIDE 20 MG TAB PO SCH (09:48)
--- NOTE | 2020-12-16 09:55 | Hospitalist Progress Note ---
Date of Service December 16, 2020 Assessment & Plan (1) Cholecystitis: Patient is an 89 year old male with PMHx COPD, Dementia, BPH, and Macrocytic anemia that presents after supposed mechanical fall at home, found to have elevated LFTs, hyperbilirubinemia, and findings concerning for acute c holecystitis on abdominal/pelvis CT. POD#2 s/p Cholecystectomy - Cholecystectomy 4/12 - completed 8 days pf zosyn - Medically stable for discharge - rehab auth pending Falls - multiple increasing falls at home even with walker support - long hx arthritis/pain in BL ankles and knees - PT recommending rehab placement for severe gait instability and increased assistance requirement COPD - continue home inhaler regimen - duonebs PRN SOB Concern for dementia - no diagnosis, however with advanced age and short term memory loss - Head CT, Cervical Spine CT negative for acute pathology. BPH - Continue home Finasteride Lower Extremity Edema - Chronic per patient - tolerating oralfluid intake. 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 did not sleep well. no issues with pain. passing gas but no bowel movements. tolerating diet well. Review of Systems Constitutional: no fever, no chills, no body aches and no fatigue Respiratory: no cough and no dyspnea Cardiovascular: no chest pain, no dyspnea and no edema Gastrointestinal: + constipation; no abdominal pain, no nausea, no vomiting and no diarrhea/loose stools Physical Exam Physical Exam: Constitutional:in no apparent distress, sitting comfortably in bed, tired Eyes: EOMI, pupils equal and reactive bilaterally, no scleral icterus Cardiac: RRR, no murmurs, gallops or rubs. Normal S1, S2 Pulm: CTA BL, no wheezes, rhonchi, crackles or rubs, moving air well throughout both lungs Abd: soft, nontender, nondistended, normal bowel sounds, no rebound or guarding, surgical incisions healing well Extremities: 2+ peripheral pulses, no edema Neuro: no focal deficits, moving all 4 limbs, A&Ox3 Results & Data Results & Data ([facility]) Vital Signs (Past 12 Hours) Vital Signs Temp Pulse Resp BP BP Pulse Ox 12/16/20 07:31 36.3 C L 73 18 148/87 H 97 12/16/20 07:11 73 20 97 12/16/20 02:49 78 22 96 12/15/20 23:04 36.6 C 79 16 137/76 96 Resident Activity Tracking Resident Involvement: Resident Care Provided Care Provided: Adult Hospital Medicine (1) COPD (chronic obstructive pulmonary disease) COPD type: unspecified COPD Qualified Code(s): J44.9 - Chronic obstructive pulmonary disease, unspecified (2) Fall Encounter type: initial encounter Qualified Code(s): W19.XXXA - Unspecified fall, initial encounter
--- NOTE | 2020-12-16 12:36 | Discharge Summary ---
Date of Service December 16, 2020 Admission HPI Per Admitting Provider Patient is an 89 year old male with PMHx COPD, Dementia, BPH, and Macrocytic anemia that presents after supposed mechanical fall at home, found to have elevated LFTs, hyperbilirubinemia, and findings concerning for acute cholecystitis on abdominal/pelvis CT. Patient notes that he has had increasing falls over the past few weeks, though this was not necessarily a new thing for him. He states that tonight after dinner (which he did not eat, last meal was toast and coffee in the AM), patient had taken his lift chair up to the second floor where his bedroom was. Upon arriving there he was handed his cane by his and as he proceeded to go into their room, he notes that he tripped and fell forward, hitting his L forehead, L elbow, and L knee. He denies feeling as though he were dizzy, weak, or about to faint and felt that he "just tripped." Supposedly unrelated to the fall, patient also has been noting worsening nausea and vomiting x4 times the past 3 days and increasing fatigue. He states that over all he has not felt well, but was not in any pain until the fall today. Currently he does note some discomfort where he had hit his head, arm, and knee. The abrasions on his L forehead and L elbow had ceased bleeding and his L knee was bandaged by the ED at time of evaluation. Patient denies any fever, chills, chest pain, abdominal pain, dizziness, visual changes. Med Hx: COPD, Dementia, BPH, Macrocytic Anemia Surg Hx: Lithotripsy, Thoracic aortic aneurysm repair, cataract surgery Soc Hx: No illicit drug use. Hx of alcohol use but quit 5-6 years ago. Hx of smoking pipe tobacco from ages [age]. Admission Exam Per Admitting Provider Constitutional: cooperative; no acute distress and not intoxicated appearing Eyes: PERRL, conjunctivae normal, anicteric sclerae ENMT: external ear and nose normal, oropharynx normal Respiratory: normal respiratory effort, lungs clear to auscultation Cardiovascular: Rate/Rhythm: regular rate and regular rhythm Heart Sounds: no murmur Gastrointestinal (Abdomen): Inspection/Auscultation: abdomen normal to inspection and normal bowel sounds; abdomen not distended Percussion/Palpation: abdomen nontender Negative Kelly's Sign Musculoskeletal: Skin abrasion noted on the L forehead, L elbow, R elbow, and L knee which has been dressed Skin: + jaundice Neurologic: PERRL, EOMI, accommodation nl, no face palsy, no dysarthria Psychiatric: A+Ox3, euthymic affect Principal Diagnosis cholecystitis, fall Discharge Exam Constitutional: in no apparent distress, sitting comfortably in bed, tired appearing Eyes: EOMI, pupils equal and reactive bilaterally, no scleral icterus Cardiac: RRR, no murmurs, gallops or rubs. Normal S1, S2 Pulm: CTA BL, no wheezes, rhonchi, crackles or rubs, moving air well throughout both lungs Abd: soft, nontender, nondistended, normal bowel sounds, no rebound or guarding, surgical incisions healing well covered with dressings Extremities: 2+ peripheral pulses, 3+ pitting edema to knee bilaterally Neuro: no focal deficits, moving all 4 limbs, A&Ox3 Discharge Data Allergies Allergy/AdvReac Type Severity Reaction Status Date / Time No Known Allergies Allergy Verified 12/08/20 19:43 Consultations 12/08/20 21:45 ED Decision to Admit Stat 12/09/20 01:15 Consult Gastroenterology Routine Consult General Surgery Routine Procedures Performed Operation Date: 12/09/20 07:00 Actual Procedures p Endoscopic Retrograde Cholangiopancreatogram(Not Applicable) - Arnav Pruitt DO Operation Date: 12/13/20 09:00 Actual Procedures p Laparoscopic Cholecystectomy(Not Applicable) - Donnie Paula MD Ordered Studies 12/08/20 18:33 CT cervical spine wo con Stat CT head/brain wo con Stat 12/08/20 20:13 CT abd pelvis IV con only Stat 12/09/20 00:00 MR MRCP Urgent 12/09/20 10:03 FL ERCP biliary ductal Routine Hospital Course (1) Cholecystitis: Patient is an 89 year old male with PMHx COPD, Dementia, BPH, and Macrocytic anemia that presents after supposed mechanical fall at home, found to have elevated LFTs, hyperbilirubinemia, and findings concerning for acute cholecystitis on abdominal/pelvis CT. Cholecystitis: - MRCP: Cholelithiasis, mild gallbladder distention and trace pericholecystic fluid with gallbladder wall thickening. These findings may reflect acute cholecystitis. - ERCP: Biliary papillary stenosis, benign. filling defect consistent with a stone and sludge, Choledocholithiasis, sludge and pus was found. Complete removal was accomplished by biliary sphincterotomy and balloon extraction. One biliary stent was placed into the common bile duct. - Cholecystectomy on 12/13, handled postop pain and management well - Received 8 days of antibiotic therapy prior and after surgical intervention Falls - multiple increasing falls at home even with walker support - long hx arthritis/pain in BL ankles and knees - PT recommending rehab placement for severe gait instability and increased assistance requirement - authorization for inpatient rehab and SNF failed. Patient agreeable to going home with home PT. 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 All other chronic medical conditions managed per home regimens. (2) COPD (chronic obstructive pulmonary disease): (3) Fall: (4) Skin tear: (5) Benign prostatic hyperplasia with urinary obstruction: (6) Macrocytic anemia: (7) Lower extremity edema: Total Time Total Time Spent Total Time Spent (In Minutes): <30 Discharge Plan Discharge Items Patient Disposition: Transfer Care Home Fac Reason For Visit: ACUTE ABIGAIL, FALL Discharge Diagnosis: S/P laparoscopic cholecystectomy Activity: As commented below Lifting: No more than 25 pounds Lifting Comment: for 4 weeks, Bathing: May shower/bathe in 3 days Non-emergency contact: Surgeon Call non-emergency contact if: you have any medication questions, your symptoms worsen, your pain is not controlled, your pain is worsening and your pain is unusual for you Follow-up/Referrals: Eric Valadez DO [Primary Care Provider] - 12/22/20 11:30 am (follow up Dr. Paula 2 weeks, Agree-I have documented within the medical record.) Donnie Paula MD [Physician] - (2 weeks ) Diet: Regular Addtl Attending Provider Instructions: You were admitted to the hospital for weakness and falls, found to have a worsening gallbladder infection that required surgical removal. Your surgical instructions are below. Keep the dressing on for 3 days. In regards to your walking, you will need to complete physical therapy at home to help build your strength. Using your walker at all times when you are up and moving around is crucial to making sure you don't have more falls. If therapy at home is not enough to improve your strength, your primary care provider can try to get you approved for halfway or a short stay in inpatient rehab. None of your medications were changed. Follow up with your surgeon as below. Addtl Compliance Reviewer Provider Instructions: Post-Surgical ~Discharge Instructions Activity Recommendations: - lifting limitation: (25 pounds for 4 weeks), - exercise/sex/sports limit: (nonstrenuous for 2 weeks), - driving or machine use limit: (none for 1 week), - Shower/bathe limit: (may shower beginning 12/17/2020) Diet: - Resume previous diet SPECIAL CARE INSTRUCTIONS: - May shower on 12/17/2020. Sponge bath around incision and wash hair in meantime. On 12/17/2020 you can shower and let water run over area and pat dry. - Leave steri strips on for one week and then remove. - Call the surgeon's office with any questions or concerns - - (ex. temperature higher than 101 degrees F, excessive bleeding or pain). MEDICATIONS: - Resume previous medications unless instructed otherwise by your surgeon. - May take extra strength Tylenol as needed for pain -650 mg every 6 hours as needed FOLLOW UP VISIT: - If not already scheduled, please call the office to schedule a two week follow-up appointment. Office number Pending Studies at Discharge: No Stand-Alone Forms: My [facility] Skilled Items Patient informed of condition?: Yes DNR: Yes Discharge Level of Care: Skilled Communicable Disease: No Discharge Prognosis: Stable Lines: None Urinary Catheter: No Medications and DC Order Prescriptions: Continued albuterol sulfate [ProAir HFA] 90 mcg/actuation HFA aerosol inhaler 2 puff INH Q4H PRN (Reason: shortness of breath) Qty: 18 RF: 3 finasteride 5 mg tablet 5 mg PO DAILY Qty: 90 RF: 3 furosemide 20 mg tablet 20 mg PO BID Qty: 180 RF: 3 ipratropium-albuterol 0.5 mg-3 mg(2.5 mg base)/3 mL solution for nebulization 3 ml INH Q4H PRN (Reason: wheezing or shortness of breath) Qty: 360 RF: 11 (DME) nebulizer accessories Misc See Rx Instructions .ROUTE .MEDSUPPLY Qty: 1 RF: 0 ergocalciferol (vitamin D2) 2,000 unit tablet 2,000 units PO DAILY RF: 0 mecobalamin (vitamin B12) 1,000 mcg tablet,chewable 1,000 mcg PO DAILY RF: 0 budesonide-formoterol 160-4.5 mcg/actuation HFA aerosol inhaler 2 puff INHALATION BID RF: 0 Discharge Orders: Discharge Order (Routine); Ordered 12/16/20 Ordered By: Rebeca Lamb/Other Patient Handouts: DVT Post Op Prevention Admission Data Admit Date/Time: 12/08/20 22:56 Attending Provider: Mesfin Deal Admit Provider: Chas Wagner Primary Care Provider: Eric Valadez Other Providers: [place] [place] ; [facility] ; Rebeca Barrios ; Estephanie Ramírez ; Nemo Andrade ; Nasir High ; Reji Anand ; [facility] Other Interventions: Discharge Summary Assessment (RN) Last Done: 12/16/20 13:53 Supervising Physician Co-Signing Physician Notes I personally examined the patient and verified all anand points of history and exam, discussed case, and agree with decision making with Dr Barrios. Feeling okay but weak. Unfortunately insurance is on ethically denied SNF. Discussed the situation with patient, he is realistic and understands that we will not likely be successful in getting the insurance company to do their duty and providing him the help that he needs, and therefore we discussed how to cobble together a reasonable scheme for safety and rehab at home. Vitals noted, in general he is awake and alert pleasant no distress. HEENT normocephalic atraumatic mucous membranes are moist. Breathing unlabored no accessory muscle use good effort. Skin shows no rashes no pallor or icterus. Neuro shows no focal deficits. Cholecystitis/cholangitis/choledocholithiasisdoing well, postop day 3. Tolerating regular diet. Stable for discharge in this respect Deconditioning/weaknesswith his insurance company either valuing bottom line or checkbox/cookie-cutter approval protocols over clinical judgment and patient safety, we have no recourse but to send him home. Staying in the hospital would protect him from falls, but because we are not a rehab facility and do not have the ability to provide aggressive therapy, he would likely decondition more here. Further staying in the hospital would put him at unnecessary risk for nosocomial infection. We discussed safety being of paramount priority, and we discussed that if when he is home he feels he has money mentally unsafe, I would rather have him come back for readmission and an attempt at trying again in dealing with the insurance company rather than have him have a catastrophic injury such as a hip fracture. Resident Activity Tracking Resident Involvement: Resident Care Provided Care Provided: Adult Hospital Medicine
--- NOTE | 2020-12-16 20:21 | Billing Data ---
Date of Service December 16, 2020 Coding Level of Care Code D/C Day Management <30 mins
[2020-12-16] MEDS ORDERED: HEPARIN SOD 5,000 UNIT/0.5 ML VIAL SQ SCH (21:00)
== END 2020-12-16 15:20 | DRG 418 ==
LOC: ED 18:10 → SUATTDRO 22:56 → 3W 22:56

== ENCOUNTER 2021-10-12 09:24 | Inpatient (IN) ==
[2021-10-12 10:29] LABS: Basophils # (auto) 0.01 K/uL (0-0.2); Basophils % (auto) 0.1 %; Eosinophils # (auto) 0.43 K/uL (0-0.5); Eosinophils % (auto) 4.4 %; Hematocrit (blood only) 41.2 % (42-52); Hemoglobin 13.7 g/dL (14.0-18.0); Immature Granulocytes # (auto) 0.03 K/uL (0.00-0.02); Immature Granulocytes % (auto) 0.3 %; Lymphocytes # (auto) 1.29 K/uL (1.2-3.4); Lymphocytes % (auto) 13.3 %; Mean Corpuscular Hemoglobin 34.5 pg (25-34); Mean Corpuscular Hgb Conc 33.3 g/dL (32-36); Mean Corpuscular Volume 103.8 fL (80-100); Mean Platelet Volume 7.9 fL (7.4-10.4); Monocytes # (auto) 1.01 K/uL (0.11-0.59); Monocytes % (auto) 10.4 %; Neutrophils # (auto) 6.96 K/uL (1.4-6.5); Neutrophils % (auto) 71.5 %; Platelet Count 272 K/uL (130-400); RDW Coefficient of Variation 14.6 % (11.5-14.5); RDW Standard Deviation 55.4 fL (36.4-46.3); Red Blood Count 3.97 M/uL (4.7-6.1); White Blood Count 9.73 K/uL (4.8-10.8)
[2021-10-12 10:50] LABS: Troponin I 0.04 ng/ml (0-0.04)
[2021-10-12 10:57] LABS: Albumin Globulin Ratio 1.3 (0.9-2); Albumin Level 3.8 gm/dl (3.4-5.0); BUN Creatinine Ratio 43.5 (10-20); Bilirubin,Total 0.7 mg/dl (0.2-1.0); Calcium 9.3 mg/dl (8.5-10.1); Creatinine Clr Calc Pharmacy 63.4 ml/min; Est GFR (African American) 97.6 ml/min; Est GFR (Non-African American) 84.2 ml/min; Magnesium 1.9 mg/dl (1.7-2.4); Potassium 4.2 mmol/L (3.5-5.1); Total Protein 6.8 gm/dl (6.0-8.3)
--- NOTE | 2021-10-12 11:13 | XRay Report ---
XR chest 1V portable CLINICAL HISTORY: Dyspnea TECHNIQUE: Single frontal radiograph of the chest was obtained. Comparison: Comparison is made to chest 2 views 02/04/2021 FINDINGS: No lines and tubes are seen. The cardiomediastinal silhouette is normal. The lungs are clear. No evid ence of pleural effusion or pneumothorax. IMPRESSION: No acute chest disease. ACT 112: Negative or not required by law. Electronically signed by: Xavi Kaplan M.D. 10/12/2021 11:12 AM
--- NOTE | 2021-10-12 11:47 | Emergency Department Note ---
History of Present Illness General Chief complaint: Shortness of Breath/Dyspnea Stated complaint: SOB FOR 1 WEEK Time Seen by Provider: 10/12/21 09:55 History of Present Illness 89-year-old male presents to the ED with a chief complaint of shortness of breath. The patient has a history of COPD but reports that he has had worsening shortness of breath over the past 4 to 5 days. He also reports that he is coug hue up some yellow phlegm. He has not had any fevers. Denies any sick contacts. He has had 3 Covid vaccines. Exertion makes his symptoms worse. Nothing makes it better. Denies having a fever. Home Medications Medication Instructions Recorded Confirmed Type mecobalamin (vitamin B12) 1,000 1,000 mcg PO DAILY 11/17/19 09/12/21 History mcg chewable tablet finasteride 5 mg tablet 5 mg PO DAILY #90 tab 10/29/20 09/12/21 Rx ipratropium 0.5 mg-albuterol 3 mg 3 ml INH Q4H PRN #360 ml 12/17/20 09/12/21 Rx (2.5 mg base)/3 mL nebulization soln cholecalciferol (vitamin D3) 50 50 mcg PO DAILY 05/30/21 09/12/21 History mcg (2,000 unit) capsule furosemide 20 mg tablet See Rx Instructions PO .COMPLEX 06/01/21 09/12/21 Rx #180 tab nebulizers #1 ea 10/06/21 Rx Allergies Allergy/AdvReac Type Severity Reaction Status Date / Time No Known Allergies Allergy Verified 06/20/21 10:35 Past Med/Surg History Medical History Anemia Chronic Asthma 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 COPD (chronic obstructive pulmonary disease) Degenerative arthritis of knee, bilateral Dementia Patient + provided PMHX to PAT RN Frequent falls 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, borderline, class II History of basal cell carcinoma Left inguinal hernia Poor historian Poor short term memory Thoracic aortic aneurysm 4.5 cm per recent Abd/Pelvis CT 12/08/20 ([place]), under surveillance Venous insufficiency Surgical History H/O repair of rotator cuff History of basal cell carcinoma (BCC) excision History of biliary stent insertion History of ERCP ERCP (12/09/20): Grade view 2, MAC# 3.0, ETT 8.0 at [facility] History of lithotripsy History of squamous cell carcinoma excision History of tooth extraction Hx of cataract surgery Hx of cholecyst[place]13/[place] ([place]) Hx of colonoscopy Family History Mother Acquired amyotrophic lateral sclerosis Father Throat cancer Laryngeal cancer Denies family history of Prostate cancer Social History Smoking Status: Never smoker Tobacco Type: Pipe Second Hand Exposure: No; Hx Alcohol Use: Yes Alcohol type: beer Hx Substance Use: No Preferred Language: Somali Communication Ability: Effective Visual Impairment: Limited Hearing Ability: Hard of Hearing [employer] Required: No Beliefs That Will Affect Care: None marital status: Current Living Situation: Spouse Current Living Situation Comment: Lives at home with . 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 [employer] Feels Safe at Home: Yes Childhood Exposure to Second-Hand Smoke: Yes caffeine: Yes Dental Care, Regularly: Yes Physical Activity Frequency: Does not Exercise Seatbelt Use: always Sunscreen Use: No (does not go outside) Assistive Devices: Walker Review of Systems A total of 10 systems reviewed and were otherwise negative Physical Exam Vital Signs Vital Signs - 24 hr 10/12/21 09:24 10/12/21 09:32 10/12/21 09:47 Temperature 36.1 C L Temperature Source Temporal Artery Scan Pulse Rate 114 H Pulse Rate [Right Finger] Pulse Rhythm Pulse Rhythm [Right Finger] Pulse Strength [Right Finger] Respiratory Rate 26 H 18 Respiratory Effort / Characteristics Accessory Muscle Use Non-Labored Respiratory Depth Deep Normal Respiratory Pattern Rapid/Deep Regular Blood Pressure 158/111 H Blood Pressure [Right Arm] 149/87 H Blood Pressure Mean 126 Blood Pressure Mean [Right Arm] 107 Blood Pressure Position [Right Arm] Sitting Pulse Oximetry 100 86 L 86 L Oxygen Delivery Method Nasal Cannula Room Air Room Air Oxygen Flow Rate 3 0 Sepsis Recent Fever Within 48 Hours No Sepsis New/Unexplained Change in Mental Status No Sepsis Action Taken by Nursing No Action Required Oxygen Flow Rate - Titration 0 Pulse Oximetry Post Tiitration 93 10/12/21 09:48 10/12/21 10:44 10/12/21 11:00 Temperature 36.6 C Temperature Source Oral Pulse Rate 106 H Pulse Rate [Right Finger] 99 H Pulse Rhythm Regular Pulse Rhythm [Right Finger] Regular Pulse Strength [Right Finger] Normal Respiratory Rate 24 24 Respiratory Effort / Characteristics Accessory Muscle Use Non-Labored Respiratory Depth Deep Normal Respiratory Pattern Tachypnea Regular Blood Pressure Blood Pressure [Right Arm] 130/83 Blood Pressure Mean Blood Pressure Mean [Right Arm] 98 Blood Pressure Position [Right Arm] Sitting Pulse Oximetry 94 100 Oxygen Delivery Method Nasal Cannula Nasal Cannula Nasal Cannula Oxygen Flow Rate 0 3 3 Sepsis Recent Fever Within 48 Hours Sepsis New/Unexplained Change in Mental Status Sepsis Action Taken by Nursing Oxygen Flow Rate - Titration 2 Pulse Oximetry Post Tiitration 96 10/12/21 12:00 10/12/21 12:54 Temperature Temperature Source Pulse Rate Pulse Rate [Right Finger] 106 H 98 H Pulse Rhythm Pulse Rhythm [Right Finger] Regular Pulse Strength [Right Finger] Normal Respiratory Rate 21 30 H Respiratory Effort / Characteristics Non-Labored Respiratory Depth Normal Respiratory Pattern Blood Pressure Blood Pressure [Right Arm] 107/71 Blood Pressure Mean Blood Pressure Mean [Right Arm] 83 Blood Pressure Position [Right Arm] Sitting Pulse Oximetry 94 88 L Oxygen Delivery Method Nasal Cannula Room Air Oxygen Flow Rate 3 Sepsis Recent Fever Within 48 Hours Sepsis New/Unexplained Change in Mental Status Sepsis Action Taken by Nursing Oxygen Flow Rate - Titration 2 Pulse Oximetry Post Tiitration 94 CONSTITUTIONAL/VITAL SIGNS: Reviewed / noted above. GENERAL: Non-toxic in appearance. INTEGUMENTARY: Warm, dry, and [place]. HEAD: Normocephalic. EYES: without scleral icterus or trauma. ENT/OROPHARYNX: clear and moist. LYMPHADENOPATHY/NECK: Is supple without lymphadenopathy or meningismus. RESPIRATORY: Rhonchi to auscultation bilaterally. Mild increased work of breathing. CARDIOVASCULAR: Regular rate and rhythm. GI/ABDOMEN: Soft and nontender. No organomegaly or pulsatile mass. EXTREMITIES: Warm and well perfused. BACK: No CVA tenderness. NEUROLOGICAL: Intact without focal deficits. PSYCHIATRIC: normal affect. MUSCULOSKELETAL: Normally developed with good muscle tone. TRIAGE NURSING DOCUMENTATION REVIEWED. Course Administered Medications Discontinued Medications Albuterol (Albut/Ipratrop 3mg/0.5mg Neb 3 Ml Vial) 3 ml NEB NOW STA; Protocol Stop: 10/12/21 11:50 Last Admin: 10/12/21 12:04 Dose: 3 ml Documented by: [id number] Methylprednisolone (Methylprednisolone 125 Mg/2 Ml Vial) 125 mg IV NOW STA Stop: 10/12/21 11:50 Last Admin: 10/12/21 12:04 Dose: 125 mg Documented by: [id number] Medical Decision Making Differential Diagnosis The differential was considered includes acute myocardial infarction, acute coronary syndrome, myocarditis, pericarditis, pericardial effusions /tamponad, esophageal perforation, pulmonary embolism, pneumonia, pneumothorax, cardiomyopathy, congestive heart, anemia , COPD/asthma exacerbation. Medical Records Attestation: I reviewed the patient's medical records. Home Medications Current Medication List: was personally reviewed by me Laboratory Data Attestation: I reviewed the patient's lab results. Result diagrams: 10/12/21 10:15 10/12/21 10:15 Lab Results 10/12/21 10/12/21 10/12/21 Range/Units 10:15 10:15 10:15 WBC 9.73 (4.8-10.8) K/uL RBC 3.97 L (4.7-6.1) M/uL Hgb 13.7 L (14.0-18.0) g/dL Hct 41.2 L (42-52) % MCV 103.8 H (80-100) fL MCH 34.5 H (25-34) pg MCHC 33.3 (32-36) g/dL RDW Std Deviation 55.4 H (36.4-46.3) fL RDW Coeff of Diana 14.6 H (11.5-14.5) % Plt Count 272 (130-400) K/uL MPV 7.9 (7.4-10.4) fL Immature Gran % (Auto) 0.3 % Neut % (Auto) 71.5 % Lymph % (Auto) 13.3 % Union % (Auto) 10.4 % Eos % (Auto) 4.4 % Baso % (Auto) 0.1 % Neut # (Auto) 6.96 H (1.4-6.5) K/uL Lymph # (Auto) 1.29 (1.2-3.4) K/uL Union # (Auto) 1.01 H (0.11-0.59) K/uL Eos # (Auto) 0.43 (0-0.5) K/uL Baso # (Auto) 0.01 (0-0.2) K/uL Immature Gran # (Auto) 0.03 H (0.00-0.02) K/uL Sodium 137 (136-145) mmol/L Potassium 4.2 (3.5-5.1) mmol/L Chloride 98 (98-107) mmol/L Carbon Dioxide 33 H (21-32) mmol/L Anion Gap 6 (3-11) BUN 30 H (6-23) mg/dl Creatinine 0.69 (0.6-1.4) mg/dl Est Cr Clr Drug Dosing 63.4 ml/min Est GFR ( Amer) 97.6 ml/min Est GFR (Non-Af Amer) 84.2 ml/min BUN/Creatinine Ratio 43.5 H (10-20) Glucose 83 (70-99(Fasting)) mg/dl Lactate 1.0 (0.4-2.0) mmol/L Calcium 9.3 (8.5-10.1) mg/dl Magnesium 1.9 (1.7-2.4) mg/dl Total Bilirubin 0.7 (0.2-1.0) mg/dl AST 21 (13-39) U/L ALT 14 (7-52) U/L Alkaline Phosphatase 63 (34-104) U/L Troponin I 0.04 (0-0.04) ng/ml Total Protein 6.8 (6.0-8.3) gm/dl Albumin 3.8 (3.4-5.0) gm/dl Globulin 3.0 (2.5-4.0) gm/dl Albumin/Globulin Ratio 1.3 (0.9-2) SARS-CoV-2 (PCR) (Negative) Influenza Type A (PCR) (Neg) Influenza Type B (PCR) (Neg) RSV (RT-PCR) (Neg) 10/12/21 Range/Units 11:00 WBC (4.8-10.8) K/uL RBC (4.7-6.1) M/uL Hgb (14.0-18.0) g/dL Hct (42-52) % MCV (80-100) fL MCH (25-34) pg MCHC (32-36) g/dL RDW Std Deviation (36.4-46.3) fL RDW Coeff of Diana (11.5-14.5) % Plt Count (130-400) K/uL MPV (7.4-10.4) fL Immature Gran % (Auto) % Neut % (Auto) % Lymph % (Auto) % Union % (Auto) % Eos % (Auto) % Baso % (Auto) % Neut # (Auto) (1.4-6.5) K/uL Lymph # (Auto) (1.2-3.4) K/uL Union # (Auto) (0.11-0.59) K/uL Eos # (Auto) (0-0.5) K/uL Baso # (Auto) (0-0.2) K/uL Immature Gran # (Auto) (0.00-0.02) K/uL Sodium (136-145) mmol/L Potassium (3.5-5.1) mmol/L Chloride (98-107) mmol/L Carbon Dioxide (21-32) mmol/L Anion Gap (3-11) BUN (6-23) mg/dl Creatinine (0.6-1.4) mg/dl Est Cr Clr Drug Dosing ml/min Est GFR ( Amer) ml/min Est GFR (Non-Af Amer) ml/min BUN/Creatinine Ratio (10-20) Glucose (70-99(Fasting)) mg/dl Lactate (0.4-2.0) mmol/L Calcium (8.5-10.1) mg/dl Magnesium (1.7-2.4) mg/dl Total Bilirubin (0.2-1.0) mg/dl AST (13-39) U/L ALT (7-52) U/L Alkaline Phosphatase (34-104) U/L Troponin I (0-0.04) ng/ml Total Protein (6.0-8.3) gm/dl Albumin (3.4-5.0) gm/dl Globulin (2.5-4.0) gm/dl Albumin/Globulin Ratio (0.9-2) SARS-CoV-2 (PCR) NEGATIVE (Negative) Influenza Type A (PCR) Negative (Neg) Influenza Type B (PCR) Negative (Neg) RSV (RT-PCR) Negative (Neg) Imaging Data Radiologist's Impression: Chest X-Ray 10/12/21 09:56 XR chest 1V portable CLINICAL HISTORY: Dyspnea TECHNIQUE: Single frontal radiograph of the chest was obtained. Comparison: Comparison is made to chest 2 views 02/04/2021 FINDINGS: No lines and tubes are seen. The cardiomediastinal silhouette is normal. The lungs are clear. No evidence of pleural effusion or pneumothorax. IMPRESSION: No acute chest disease. ACT 112: Negative or not required by law. Electronically signed by: Xavi Kaplan M.D. 10/12/2021 11:12 AM ECG Data Attestation: I personally reviewed and interpreted this ECG as follows: Additional Comments: Twelve-lead EKG: Per my interpretation there is a sinus tach at a rate of 108. Occasional PVC. No ST elevation. Normal QTC. MDM Narrative 89-year-old male presents with a chief complaint of increasing shortness of breath over the past 4 to 5 days as well as a productive yellow cough. Room air oxygen saturations were 86%. Improved to the high 90s on 2 or 3 L. Chest x-ray is negative for acute disease. CBC and chemistry panel was unremarkable. COVID RSV and flu are negative. The patient was treated with a DuoNeb treatment as well as IV Solu-Medrol. On reassessment, we attempted to remove the oxygen and the patient's oxygen saturations slowly dropped to 88% at which time he was placed back on oxygen. His upper respiratory symptoms are likely related to a bronchitis as his chest x-ray does not show pneumonia. He was started on IV antibiotics. He will be seen by the hospitalist for further inpatient evaluation and care. Impression & Plan Acute exacerbation of chronic obstructive pulmonary disease, Acute bronchitis Discharge Plan Visit Data Chief Complaint: Shortness of Breath/Dyspnea Stated Complaint: SOB FOR 1 WEEK ED Provider: Braeden Ventura Discharge Problem: Acute exacerbation of chronic obstructive pulmonary disease, Acute bronchitis Patient Disposition: Being Evaluated by Hospitalist Forms Stand Alone Forms: [employer] Prescriptions Prescriptions: No Action finasteride 5 mg tablet 5 mg PO DAILY Qty: 90 RF: 3 ipratropium-albuterol 0.5 mg-3 mg(2.5 mg base)/3 mL solution for nebulization 3 ml INH Q4H PRN (Reason: wheezing or shortness of breath) Qty: 360 RF: 11 furosemide 20 mg tablet See Rx Instructions PO .COMPLEX Qty: 180 RF: 3 (DME) nebulizers Misc See Rx Instructions .Route Qty: 1 RF: 0 cholecalciferol (vitamin D3) 50 mcg (2,000 unit) capsule 50 mcg PO DAILY RF: 0 mecobalamin (vitamin B12) 1,000 mcg tablet,chewable 1,000 mcg PO DAILY RF: 0 Referrals Referrals: Eric Valadez, [Primary Care Provider] -
[2021-10-12] MEDS ORDERED: ALBUT/IPRATROP 3MG/0.5MG NEB 3 ML VIAL NEB STA ×2 (11:49→13:39)
[2021-10-12] MEDS ORDERED: methylPREDNISolone 125 MG/2 ML VIAL IV STA (11:49)
[2021-10-12 11:56] LABS: Influenza A virus by PCR Negative (Neg); Influenza B virus by PCR Negative (Neg); RSV by PCR Negative (Neg); SARS CoV2 RNA(COVID-19) InHosp NEGATIVE (Negative)
[2021-10-12] MEDS ORDERED: cefTRIAXone SODIUM 1,000 MG/50 ML BAG IV STA (13:19)
[2021-10-12] MEDS ORDERED: AZITHROMYCIN 500 MG in DEXTROSE 5% 250 ML IV STA (13:19)
[2021-10-12] MEDS ORDERED: BUDESONIDE 0.25 MG/2 ML VIAL (PULMICORT) NEB STA (13:39)
[2021-10-12] MEDS ORDERED: FUROSEMIDE INJ 20 MG/2 ML VIAL IV ONE ×2 (14:22→21:00)
--- NOTE | 2021-10-12 14:24 | History & Physical Report ---
Date of Service October 12, 2021 Assessment & Plan (1) Acute exacerbation of chronic obstructive pulmonary disease: Plan: Acute on chronic exacerbation COPD - DDX: HF vs. viral bronchitis - Albuterol/Atrovent nebs scheduled - PRN Albuterol Nebs in between as needed - Solumedrol 40mg IV q6 - Add Pulmicort Respules as likely unable to get benefit from inhaler - If improved tomorrow start Sarita ellipta- or transition back to Symbicort - Azithromycin 500 now and then 250mg PO daily - CPAP/BIPAP- ABG pending at this time, will place on to ease his dyspnea (2) Thoracic aortic aneurysm: Plan: CT of chest 2017 and 2020 with 4.6 CM Ascending Thoracic Aneurysm - No change from [id number] - Not sure who is chronically following previous CT done for dyspnea (3) Heart failure with preserved ejection fraction, borderline, class II: Plan: ECHO in November 2020 - EF 60-65% with mild dilated RV, Aortic sclerosis and normal RSVP - Continue Lasix - Change Lasix to IV for 24-48 hours - ray for 24-48 hours to diurese as well as with his tachypnea/dyspnea this will exacerbate the above (4) Cognitive disorder: Plan: Dementia chronic - Lives at home with , his recall of medications and medical history is lmited - He does report that he lives a pretty sedentary lifestyle, he has a chair lift to help him go up and down the steps at home - does not do any physical exertion - carrying groceries, no outside work (5) Macrocytic anemia: Plan: Chronic remains on B12 (6) Benign prostatic hyperplasia with urinary obstruction: Plan: Continue Finasteride (7) Acute respiratory failure with hypoxia: History of Present Illness Chief Complaint: cough and shortness of breath Primary Care Provider: Eric Valadez, DO 89 YOM with past medical history of: COPD, previous pipe smoker, lower extremity edema, dementia, macrocytic anemia, aortic aneurysm 4.6cm (2020), HFpEF. Patient comes to the EMD today for complaints of increased dyspnea, cough, and increase in sputum production. The patient states this started about 4 days ago, but last night he used his nebulizer continuous without benefit. He called EMS today because he was miserable trying to catch his breath at home to the point where he could not eat his breakfast. He states that he can take a few steps before becoming completely winded. His cough is intermittent worsened by deep breath or moving around, he is producing yellow thick sputum- this is his normal, but the amount has increased. He was noted to have Spo2 88% on arrival and was placed on 2LNC with appropriate increase in spo2, but not change in ve ntilatory status. He was given 125 mg solumedrol and albuterol nebulizer. He had CXR done without no opacities. His CBC is without elevation in his WBC or EOS, his BMP is notable for HCO3 33 and BUN of 30, otherwise unremarkable. Patient is tachypneic with rest and dyspneic with conversation, he is feeling that he is needing more oxygen to ease his work of breathing. Will obtain ABG and place BiPAP/CPAP for his dyspnea/tachypnea. Will admit to medical telemetry- schedule his Combivent nebs with PRN albuterol in between. Pulmicort repulse nebs BID as he is unlikely able to get HFA/Puffer into his airways. Continue steroids at Solumedrol 40mg q6. Will give 20mg IV Lasix as well. Patient reports only using his nebulizer at home which he has hard time remembering the medications. He has been on Symbicort in the past but he can't recall if he continues this and his not in his current medication rec. COVID and Influenza PCR- are NEGATIVE on admission Allergies Allergy/AdvReac Type Severity Reaction Status Date / Time No Known Allergies Allergy Verified 06/20/21 10:35 Home Medications Medication Instructions Recorded Confirmed Type mecobalamin (vitamin B12) 1,000 1,000 mcg PO DAILY 11/17/19 10/12/21 History mcg chewable tablet finasteride 5 mg tablet 5 mg PO DAILY #90 tab 10/29/20 10/12/21 Rx ipratropium 0.5 mg-albuterol 3 mg 3 ml INH Q4H PRN #360 ml 12/17/20 10/12/21 Rx (2.5 mg base)/3 mL nebulization soln cholecalciferol (vitamin D3) 50 50 mcg PO DAILY 05/30/21 10/12/21 History mcg (2,000 unit) capsule furosemide 20 mg tablet See Rx Instructions PO .COMPLEX 06/01/21 10/12/21 Rx #180 tab Past Med/Surg History Medical History Anemia Chronic Asthma 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 COPD (chronic obstructive pulmonary disease) Degenerative arthritis of knee, bilateral Dementia Patient + provided PMHX to PAT RN Frequent falls 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, borderline, class II History of basal cell carcinoma Left inguinal hernia Poor historian Poor short term memory Thoracic aortic aneurysm 4.5 cm per recent Abd/Pel[place] CT 12/08/20 ([place]), under surveillance Venous insufficiency Surgical History H/O repair of rotator cuff History of basal cell carcinoma (BCC) excision History of biliary stent insertion History of ERCP ERCP (12/09/20): Grade view 2, MAC# 3.0, ETT 8.0 at [facility] History of lithotripsy History of squamous cell carcinoma excision History of tooth extraction Hx of cataract surgery Hx of cholecystectomy 12/13/20 ([place]) Hx of colonoscopy Family History Mother Acquired amyotrophic lateral sclerosis Father Throat cancer Laryngeal cancer Denies family history of Prostate cancer Social History (Updated 10/12/21 @ 14:25 by ANDRE Anaya) Smoking Status: Former smoker Tobacco Type: Pipe Second Hand Exposure: No; Do You Dip or Chew Tobacco: No; Hx Alcohol Use: Yes Alcohol type: beer Hx Substance Use: No Preferred Language: Romanian Communication Ability: Effective Visual Impairment: Limited Hearing Ability: Hard of Hearing Byproducts Operator Required: No Beliefs That Will Affect Care: None marital status: Current Living Situation: Spouse Current Living Situation Comment: Lives at home with . 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 [employer] Other Information That Helps Us Care for You: No Feels Safe at Home: Yes Safety Concerns: Feels Safe At This Time Childhood Exposure to Second-Hand Smoke: Yes caffeine: Yes Dental Care, Regularly: Yes Physical Activity Frequency: Does not Exercise Seatbelt Use: always Sunscreen Use: No (does not go outside) Assistive Devices: Walker Review of Systems Review of Systems: REVIEW OF SYSTEMS: Patient with dementia and poor historian Constitutional: No fever, sweats or chills Eyes: No diplopia, no worsening or blurred vision ENT: normal hearing, no trouble swallowing Respiratory: (+) cough, sputum, dyspnea at rest and on exertion Cardiovascular: (+) edema, No chest pain, tightness or palpitations Abdomen: No pain, nausea, vomiting, diarrhea or constipation Musculoskeletal: No joint pain, calf pain, swelling Neurologic: No weakness, numbness/tingling, or balance problems Skin: No rash or itch Physical Exam Physical Exam: PHYSICAL EXAM: General: awake, alert, tachypneic Head: Normocephalic, atraumatic ENT: PERRLA, EOMI, no pharyngeal exudate, mucous membranes moist Neuro: AAO x 3, speech clear and appropriate, strength intact bilaterally 5/5, sensation intact and equal all extremities and dermatomes, no pronator drift Chest: equal rise and fall of the chest, tachypneic, inspiratory expiratory wheeze, scattered rhonchi in upper airways, on 2LNC Cardiac: Regular rate and rhythm, telemetry reviewed, skin warm dry, cap refill <3 seconds, peripheral pulses +2 no JVD, no murmur, +2 edema to bilateral lower extremities GI: NABS x 4 quadrants, soft, nontender to palpation, no rebound, guarding or tenderness : Spontaneously voiding, no pain, no CVA tenderness, Psych: Normal mood and affect Skin: brusing to arms and legs Results & Data Results & Data ([facility]) Vital Signs (Past 12 Hours) Vital Signs Temp Pulse Pulse Resp BP BP Pulse Ox 10/12/21 13:52 96 H 22 107/71 98 10/12/21 12:54 98 H 30 H 107/71 88 L 10/12/21 12:00 106 H 21 94 10/12/21 11:00 36.6 C 99 H 24 130/83 100 10/12/21 10:44 106 H 24 10/12/21 09:48 94 10/12/21 09:47 86 L 10/12/21 09:32 36.1 C L 114 H 18 158/111 H 86 L 10/12/21 09:24 26 H 149/87 H 100 Laboratory Results Abnormal lab results 10/12/21 10/12/21 Range/Units 10:15 10:15 RBC 3.97 L (4.7-6.1) M/uL Hgb 13.7 L (14.0-18.0) g/dL Hct 41.2 L (42-52) % MCV 103.8 H (80-100) fL MCH 34.5 H (25-34) pg RDW Std Deviation 55.4 H (36.4-46.3) fL RDW Coeff of Diana 14.6 H (11.5-14.5) % Neut # (Auto) 6.96 H (1.4-6.5) K/uL Millard # (Auto) 1.01 H (0.11-0.59) K/uL Immature Gran # (Auto) 0.03 H (0.00-0.02) K/uL Carbon Dioxide 33 H (21-32) mmol/L BUN 30 H (6-23) mg/dl BUN/Creatinine Ratio 43.5 H (10-20) Diagnostic Findings Chest X-Ray 10/12/21 09:56 XR chest 1V portable CLINICAL HISTORY: Dyspnea TECHNIQUE: Single frontal radiograph of the chest was obtained. Comparison: Comparison is made to chest 2 views 02/04/2021 FINDINGS: No lines and tubes are seen. The cardiomediastinal silhouette is normal. The lungs are clear. No evidence of pleural effusion or pneumothorax. IMPRESSION: No acute chest disease. ACT 112: Negative or not required by law. Electronically signed by: Xavi Kaplan M.D. 10/12/2021 11:12 AM Medications Administered Azithromycin 500 mg/ Dextrose 255 mls @ 127.5 mls/hr IV NOW STA Stop: 10/12/21 15:18 Last Admin: 10/12/21 13:56 Dose: 127.5 mls/hr Documented by: [id number] Discontinued Medications Albuterol (Albut/Ipratrop 3mg/0.5mg Neb 3 Ml Vial) 3 ml NEB NOW STA; Protocol Stop: 10/12/21 11:50 Last Admin: 10/12/21 12:04 Dose: 3 ml Documented by: [id number] Albuterol (Albut/Ipratrop 3mg/0.5mg Neb 3 Ml Vial) 3 ml NEB NOW STA; Protocol Stop: 10/12/21 13:40 Last Admin: 10/12/21 13:55 Dose: 3 ml Documented by: [id number] Ceftriaxone Sodium (Rocephin) 1,000 mg in 50 mls @ 100 mls/hr IV NOW STA Stop: 10/12/21 13:48 Last Admin: 10/12/21 14:09 Dose: Not Given Documented by: [id number] Methylprednisolone (Methylprednisolone 125 Mg/2 Ml Vial) 125 mg IV NOW STA Stop: 10/12/21 11:50 Last Admin: 10/12/21 12:04 Dose: 125 mg Documented by: [id number] Home Medications mecobalamin (vitamin B12) 1,000 mcg chewable tablet 1,000 mcg PO DAILY 11/17/19 [History Confirmed 09/12/21] finasteride 5 mg tablet 5 mg PO DAILY #90 tab 10/29/20 [Rx Confirmed 09/12/21] ipratropium 0.5 mg-albuterol 3 mg (2.5 mg base)/3 mL nebulization soln 3 ml INH Q4H PRN #360 ml 12/17/20 [Rx Confirmed 09/12/21] cholecalciferol (vitamin D3) 50 mcg (2,000 unit) capsule 50 mcg PO DAILY 05/30/21 [History Confirmed 09/12/21] furosemide 20 mg tablet See Rx Instructions PO .COMPLEX #180 tab 06/01/21 [Rx Confirmed 09/12/21] nebulizers #1 ea 10/06/21 [Rx] Active Medications Azithromycin 500 mg/ Dextrose 255 mls @ 127.5 mls/hr IV NOW STA Stop: 10/12/21 15:18 Last Admin: 10/12/21 13:56 Dose: 127.5 mls/hr Documented by: ECG Additional Comments: Sinus tachycardia with 1st degree A-V block with occasional Premature ventricula r complexes Inferior infarct , age undetermined Cannot rule out Anterior infarct , age undetermined Abnormal ECG Code Status & VTE Plan Code Status CODE: DNR/DNI VTE: SCDs, Lovenox 30mg SQ daily VTE Prophylaxis Plan VTE Prophylaxis will be ordered: Yes Supervising Physician Co-Signing Physician Notes Attending Attestation & Admission Note: Pt seen/examined, chart reviewed, care plan d/w ANDRE Mortensen. I agree w/ the anand components of his documentation. 89yo male with COPD, dementia, and BPH presents with worsening cough, congestion, dyspnea and CHAVEZ. Upon arrival today was hypoxic and NC O2 was placed for such. During my assessment he was visibly dyspneic and uncomfortable. I asked respiratory to place BIPAP 10/5. After placing him on such his respiratory distress improved considerably. PMH/PSH/allergies/meds/sochx/famhx - reviewed vitals - tachypneic, hypoxic, no fever gen - thin, increased work of breathing, dyspneic, cannot complete his sentences with talking neck - perhaps mild JVD present, but patient sitting at 90 degrees upright mouth - MMM heart - heart tones distant but mildly tachycardic, s1 s2 lungs - diffuse wheezing b/l, scattered crackles b/l, tachypneic, retractions abd - soft NT ND BS+ ext - 2+ edema b/l, varicose veins, pulses 2+ b/l labs reviewed cxr reviewed EKG reviewed - my read - NSR, first degree AV block, left axis deviation, no ST changes COVID/RSV/flu negative A/P: 1. acute hypoxic respiratory failure 2nd to severe COPD exacerbation 2. COPD exacerbation 3. LE edema, question pulmonary edema - acute diastolic CHF? 4. dementia 5. BPH BIPAP, IV steroids, bronchodilators, lasix diuresis, narrow-spectrum abx due to severity of his respiratory status will place ray keep o2 sats low 90s labs in am Grady Parikh MD PG Care Time/CCT Total # of Minutes Spent Total Time Spent with Patient: Total time spent is greater than 50% in coordination of care (as documented) at patient's floor/unit and/or counseling patient: Coding Level of Care Code 08004 Initial Inpt Care Lvl 3 Diagnoses Acute exacerbation of chronic obstructive pulmonary disease J44.1 Thoracic aortic aneurysm I71.2 Heart failure with preserved ejection fraction, borderline, class II I50.30 Cognitive disorder F09 Macrocytic anemia D53.9 Benign prostatic hyperplasia with urinary obstruction N40.1; N13.8 Acute respiratory failure with hypoxia J96.01
[2021-10-12] MEDS ORDERED: FUROSEMIDE 40 MG/4 ML VIAL IV ONE (14:27)
[2021-10-12 14:55] LABS: Base Excess ABG 4.8 mEq/L (-9-1.8); HCO3 ABG 29 mmol/L (19-24); Oxygen Saturation ABG 95.3 % (90-95); PCO2 ABG 42 mmHg (35-46); PO2 ABG 72 mmHg (80-95); pH ABG 7.46 (7.35-7.45)
[2021-10-12 15:04] LABS: Allen Test Pos (Pos)
[2021-10-12] MEDS ORDERED: ALBUTEROL 0.5% NEB SOLN 2.5 MG/0.5 ML VIAL NEB PRN (16:03)
[2021-10-12] MEDS ORDERED: ACETAMINOPHEN 325 MG TAB PO PRN (16:03)
[2021-10-12] MEDS ORDERED: POLYETHYLENE (MIRALAX) 17 GM PACK PO PRN (16:03)
[2021-10-12] MEDS: methylPREDNISolone 40 MG in SYRINGE 0 ML IV SCH (18:13)
[2021-10-12] MEDS: ALBUT/IPRATROP 3MG/0.5MG NEB 3 ML VIAL INH SCH (19:30)
[2021-10-12] MEDS: BUDESONIDE 0.25 MG/2 ML VIAL (PULMICORT) NEB SCH (20:03)
[2021-10-12] MEDS: ENOXAPARIN INJ 30 MG/0.3 ML SYR SQ SCH (21:17)
[2021-10-13] MEDS: methylPREDNISolone 40 MG in SYRINGE 0 ML IV SCH ×5 (00:05→23:51)
[2021-10-13] MEDS: ALBUT/IPRATROP 3MG/0.5MG NEB 3 ML VIAL INH SCH ×4 (00:17→19:27)
[2021-10-13 05:06] LABS: Hematocrit (blood only) 39.3 % (42-52); Hemoglobin 12.9 g/dL (14.0-18.0); Immature Granulocytes # (auto) 0.01 K/uL (0.00-0.02); Immature Granulocytes % (auto) 0.1 %; Lymphocytes # (auto) 0.36 K/uL (1.2-3.4); Lymphocytes % (auto) 4.5 %; Mean Corpuscular Hemoglobin 33.7 pg (25-34); Mean Corpuscular Hgb Conc 32.8 g/dL (32-36); Mean Corpuscular Volume 102.6 fL (80-100); Mean Platelet Volume 8.2 fL (7.4-10.4); Monocytes # (auto) 0.24 K/uL (0.11-0.59); Neutrophils # (auto) 7.36 K/uL (1.4-6.5); Neutrophils % (auto) 92.4 %; Platelet Count 272 K/uL (130-400); RDW Coefficient of Variation 14.6 % (11.5-14.5); Red Blood Count 3.83 M/uL (4.7-6.1); White Blood Count 7.97 K/uL (4.8-10.8)
[2021-10-13 05:31] LABS: BUN Creatinine Ratio 40.7 (10-20); Calcium 8.4 mg/dl (8.5-10.1); Creatinine Clr Calc Pharmacy 81.1 ml/min; Est GFR (African American) 107.9 ml/min; Est GFR (Non-African American) 93.1 ml/min; Magnesium 1.9 mg/dl (1.7-2.4); Potassium 3.7 mmol/L (3.5-5.1)
[2021-10-13] MEDS: BUDESONIDE 0.25 MG/2 ML VIAL (PULMICORT) NEB SCH ×2 (07:34→20:05)
[2021-10-13] MEDS: FINASTERIDE 5 MG TAB PO SCH (09:40)
[2021-10-13] MEDS: AZITHROMYCIN 250 MG TAB PO SCH (09:40)
[2021-10-13] MEDS: FLUTICASONE/VILANTEROL 100/25MCG 14 PUFFS/INHALER INH SCH (09:41)
[2021-10-13] MEDS: cefTRIAXone SODIUM 1,000 MG in DEXTROSE 5% 50 ML IV SCH (14:28)
[2021-10-13] MEDS: ENOXAPARIN INJ 30 MG/0.3 ML SYR SQ SCH (20:16)
--- NOTE | 2021-10-13 22:38 | Hospitalist Progress Note ---
Date of Service October 13, 2021 Assessment & Plan (1) Acute exacerbation of chronic obstructive pulmonary disease: Plan: Acute on chronic exacerbation COPD - DDX: HF vs. viral bronchitis - Albuterol/Atrovent nebs scheduled - PRN Albuterol Nebs in between as needed - Solumedrol 40mg IV q6 - Add Pulmicort Respules as likely unable to get benefit from inhaler - If improved tomorrow start Sarita ellipta- or transition back to Symbicort - Azithromycin 500 now and then 250mg PO daily -will resume ceftriaxone. and will monitor. -ubaldo recheck BMP in AM. (2) Thoracic aortic aneurysm: Plan: CT of chest 2017 and 2020 with 4.6 CM Ascending Thoracic Aneurysm - No change from [id number] - Not sure who is chronically following previous CT done for dyspnea (3) Heart failure with preserved ejection fraction, borderline, class II: Plan: ECHO in November 2020 - EF 60-65% with mild dilated RV, Aortic sclerosis and normal RSVP - Continue Lasix - Change Lasix to IV for 24-48 hours - ray for 24-48 hours to diurese as well as with his tachypnea/dyspnea this will exacerbate the above (4) Cognitive disorder: Plan: Dementia chronic - Lives at home with , his recall of medications and medical history is lmited - He does report that he lives a pretty sedentary lifestyle, he has a chair lift to help him go up and down the steps at home - does not do any physical exertion - carrying groceries, no outside work (5) Macrocytic anemia: Plan: Chronic remains on B12 (6) Benign prostatic hyperplasia with urinary obstruction: Plan: Continue Finasteride (7) Acute respiratory failure with hypoxia: Admission and Anticipated Discharge Date Admission Date: October 12, 2021 Subjective Patient reports no significant improvement from yesterday. However he does not feel worse either. Review of Systems Review of Systems: All systems reviewed & are unremarkable except as noted in HPI & below Physical Exam Physical Exam: General: awake, alert, no longer tachypneic Head: Normocephalic, atraumatic ENT: PERRLA, EOMI, no pharyngeal exudate, mucous membranes moist Neuro: AAO x 3, speech clear and appropriate, strength intact bilaterally 5/5, sensation intact and equal all extremities and dermatomes, no pronator drift Chest: equal rise and fall of the chest, no wheezing, scattered rhonchi in upper airways, on 2LNC Cardiac: Regular rate and rhythm, telemetry reviewed, skin warm dry, cap refill <3 seconds, peripheral pulses +2 no JVD, no murmur, +2 edema to bilateral lower extremities GI: NABS x 4 quadrants, soft, nontender to palpation, no rebound, guarding or tenderness : Spontaneously voiding, no pain, no CVA tenderness, Psych: Normal mood and affect Skin: brusing to arms and legs Results & Data Results & Data ([facility]) Vital Signs (Past 12 Hours) Vital Signs Temp Pulse Pulse Resp BP Pulse Ox 10/13/21 20:08 73 15 90 10/13/21 19:54 36.4 C L 82 18 129/53 L 95 10/13/21 19:27 80 20 95 10/13/21 18:00 88 10/13/21 15:12 82 14 110/59 L 93 10/13/21 12:42 85 20 98 PG Care Time/CCT Total # of Minutes Spent Total Time Spent with Patient: Total time spent is greater than 50% in coordination of care (as documented) at patient's floor/unit and/or counseling patient: Coding Level of Care Code 14420 Subseq Hosp Care Lvl 2 Diagnoses Acute exacerbation of chronic obstructive pulmonary disease J44.1 Thoracic aortic aneurysm I71.2 Heart failure with preserved ejection fraction, borderline, class II I50.30 Cognitive disorder F09 Macrocytic anemia D53.9 Benign prostatic hyperplasia with urinary obstruction N40.1; N13.8 Acute respiratory failure with hypoxia J96.01 Time Spent (min) 25
[2021-10-14] MEDS: ALBUT/IPRATROP 3MG/0.5MG NEB 3 ML VIAL INH SCH ×4 (01:18→20:02)
[2021-10-14] MEDS: methylPREDNISolone 40 MG in SYRINGE 0 ML IV SCH ×3 (05:48→17:58)
--- NOTE | 2021-10-14 06:24 | Electrocardiogram Report ---
Test Reason : Blood Pressure : / mmHG Vent. Rate : 108 BPM Atrial Rate : 108 BPM P-R Int : 216 ms QRS Dur : 106 ms QT Int : 344 ms P-R-T Axes : 016 -15 037 degrees QTc Int : 460 ms Poor data quality, interpretation may be adversely affected Sinus tachycardia with 1st degree A-V block with occasional Premature ventricular complexes Inferior infarct , age undetermined Cannot rule out Anterior infarct , age undetermined Abnormal ECG When compared with ECG of 08-DEC-2020 18:35, Premature ventricular complexes are now Present Premature atrial complexes are no longer Present Confirmed by Alvaro Grande ([id number]) on 10/14/2021 6:24:21 AM Referred By: Vinny Mchugh Confirmed By:Alvaro Grande
[2021-10-14 06:45] LABS: Hematocrit (blood only) 34.7 % (42-52); Hemoglobin 11.6 g/dL (14.0-18.0); Immature Granulocytes # (auto) 0.03 K/uL (0.00-0.02); Immature Granulocytes % (auto) 0.3 %; Lymphocytes # (auto) 0.57 K/uL (1.2-3.4); Lymphocytes % (auto) 6.1 %; Mean Corpuscular Hemoglobin 34.3 pg (25-34); Mean Corpuscular Hgb Conc 33.4 g/dL (32-36); Mean Corpuscular Volume 102.7 fL (80-100); Mean Platelet Volume 7.8 fL (7.4-10.4); Monocytes # (auto) 0.43 K/uL (0.11-0.59); Monocytes % (auto) 4.6 %; Neutrophils # (auto) 8.26 K/uL (1.4-6.5); Platelet Count 270 K/uL (130-400); RDW Coefficient of Variation 14.7 % (11.5-14.5); Red Blood Count 3.38 M/uL (4.7-6.1); White Blood Count 9.29 K/uL (4.8-10.8)
[2021-10-14 07:09] LABS: BUN Creatinine Ratio 47.5 (10-20); Calcium 8.3 mg/dl (8.5-10.1); Creatinine Clr Calc Pharmacy 70.8 ml/min; Est GFR (African American) 102.6 ml/min; Est GFR (Non-African American) 88.5 ml/min; Potassium 3.9 mmol/L (3.5-5.1)
[2021-10-14] MEDS: cefTRIAXone SODIUM 1,000 MG in DEXTROSE 5% 50 ML IV SCH (08:57)
[2021-10-14] MEDS: AZITHROMYCIN 250 MG TAB PO SCH (08:58)
[2021-10-14] MEDS: FLUTICASONE/VILANTEROL 100/25MCG 14 PUFFS/INHALER INH SCH (08:58)
[2021-10-14] MEDS: FINASTERIDE 5 MG TAB PO SCH (08:58)
[2021-10-14] MEDS: BUDESONIDE 0.25 MG/2 ML VIAL (PULMICORT) NEB SCH ×2 (10:42→20:02)
[2021-10-14] MEDS: ENOXAPARIN INJ 30 MG/0.3 ML SYR SQ SCH (19:59)
--- NOTE | 2021-10-14 20:43 | Hospitalist Progress Note ---
Date of Service October 14, 2021 Assessment & Plan (1) Acute exacerbation of chronic obstructive pulmonary disease: Plan: Acute on chronic exacerbation COPD - DDX: HF vs. viral bronchitis - Albuterol/Atrovent nebs scheduled - PRN Albuterol Nebs in between as needed - Solumedrol 40mg IV q6will taper to daily. - Add Pulmicort Respules as likely unable to get benefit from inhaler -place on LABA and ICS - Continue ceftriaxone and Azithromycin (2) Thoracic aortic aneurysm: Plan: CT of chest 2017 and 2020 with 4.6 CM Ascending Thoracic Aneurysm - No change from [id number] - Not sure who is chronically following previous CT done for dyspnea (3) Heart failure with preserved ejection fraction, borderline, class II: Plan: ECHO in November 2020 - EF 60-65% with mild dilated RV, Aortic sclerosis and normal RSVP - Continue Lasix - Change Lasix to IV for 24-48 hours - ray for 24-48 hours to diurese as well as with his tachypnea/dyspnea this will exacerbate the above (4) Cognitive disorder: Plan: Dementia chronic - Lives at home with , his recall of medications and medical history is lmited - He does report that he lives a pretty sedentary lifestyle, he has a chair lift to help him go up and down the steps at home - does not do any physical exertion - carrying groceries, no outside work (5) Macrocytic anemia: Plan: Chronic remains on B12 (6) Benign prostatic hyperplasia with urinary obstruction: Plan: Continue Finasteride (7) Acute respiratory failure with hypoxia: Admission and Anticipated Discharge Date Admission Date: October 12, 2021 Subjective Patient reports that he is coughing up greening sputum. Patient reports no new symptoms. Review of Systems Review of Systems: All systems reviewed & are unremarkable except as noted in HPI & below Physical Exam Physical Exam: General: awake, alert, no longer tachypneic Head: Normocephalic, atraumatic ENT: PERRLA, EOMI, no pharyngeal exudate, mucous membranes moist Neuro: AAO x 3, speech clear and appropriate, strength intact bilaterally 5/5, sensation intact and equal all extremities and dermatomes, no pronator drift Chest: equal rise and fall of the chest, no wheezing, scattered rhonchi in upper airways, on 5LNC Cardiac: Regular rate and rhythm, telemetry reviewed, skin warm dry, cap refill <3 seconds, peripheral pulses +2 no JVD, no murmur, +2 edema to bilateral lower extremities GI: NABS x 4 quadrants, soft, nontender to palpation, no rebound, guarding or tenderness : Spontaneously voiding, no pain, no CVA tenderness, Psych: Normal mood and affect Skin: brusing to arms and legs Results & Data Results & Data ([facility]) Vital Signs (Past 12 Hours) Vital Signs Temp Pulse Pulse Resp BP Pulse Ox 10/14/21 20:26 81 29 H 96 10/14/21 20:03 80 22 95 10/14/21 17:35 74 96/60 L 95 10/14/21 16:21 36.8 C 84 18 96/64 L 92 10/14/21 10:44 74 20 94 PG Care Time/CCT Total # of Minutes Spent Total Time Spent with Patient: Total time spent is greater than 50% in coordination of care (as documented) at patient's floor/unit and/or counseling patient: Coding Level of Care Code 83096 Subseq Hosp Care Lvl 2 Diagnoses Acute exacerbation of chronic obstructive pulmonary disease J44.1 Thoracic aortic aneurysm I71.2 Heart failure with preserved ejection fraction, borderline, class II I50.30 Cognitive disorder F09 Macrocytic anemia D53.9 Benign prostatic hyperplasia with urinary obstruction N40.1; N13.8 Acute respiratory failure with hypoxia J96.01 Time Spent (min) 25
[2021-10-15] MEDS: ALBUT/IPRATROP 3MG/0.5MG NEB 3 ML VIAL INH SCH ×4 (00:09→19:38)
[2021-10-15] MEDS: BUDESONIDE 0.25 MG/2 ML VIAL (PULMICORT) NEB SCH ×2 (07:26→19:38)
[2021-10-15] MEDS ORDERED: FLUTICASONE/SALMETEROL 250/50 (ADVAIR) 14 PUFF/1 INHALER INH SCH (09:00)
[2021-10-15] MEDS: cefTRIAXone SODIUM 1,000 MG in DEXTROSE 5% 50 ML IV SCH (09:32)
[2021-10-15] MEDS: AZITHROMYCIN 250 MG TAB PO SCH (09:32)
[2021-10-15] MEDS: methylPREDNISolone 40 MG in SYRINGE 0 ML IV SCH (09:32)
[2021-10-15] MEDS: FLUTICASONE/VILANTEROL 100/25MCG 14 PUFFS/INHALER INH SCH (09:33)
[2021-10-15] MEDS: FINASTERIDE 5 MG TAB PO SCH (10:13)
[2021-10-15 10:23] LABS: Hematocrit (blood only) 36.8 % (42-52); Hemoglobin 12.1 g/dL (14.0-18.0); Immature Granulocytes # (auto) 0.03 K/uL (0.00-0.02); Immature Granulocytes % (auto) 0.2 %; Lymphocytes # (auto) 0.92 K/uL (1.2-3.4); Lymphocytes % (auto) 7.6 %; Mean Corpuscular Hemoglobin 34.2 pg (25-34); Mean Corpuscular Hgb Conc 32.9 g/dL (32-36); Mean Platelet Volume 7.9 fL (7.4-10.4); Monocytes # (auto) 0.94 K/uL (0.11-0.59); Monocytes % (auto) 7.8 %; Neutrophils # (auto) 10.16 K/uL (1.4-6.5); Neutrophils % (auto) 84.4 %; Platelet Count 271 K/uL (130-400); RDW Standard Deviation 57.4 fL (36.4-46.3); Red Blood Count 3.54 M/uL (4.7-6.1); White Blood Count 12.05 K/uL (4.8-10.8)
[2021-10-15 11:12] LABS: BUN Creatinine Ratio 42.9 (10-20); Calcium 8.4 mg/dl (8.5-10.1); Creatinine Clr Calc Pharmacy 61.7 ml/min; Est GFR (Non-African American) 83.7 ml/min; Potassium 3.4 mmol/L (3.5-5.1)
[2021-10-15] MEDS ORDERED: FUROSEMIDE 40 MG/4 ML VIAL IV ONE (16:52)
--- NOTE | 2021-10-15 16:52 | Hospitalist Progress Note ---
Date of Service October 15, 2021 Assessment & Plan (1) Acute exacerbation of chronic obstructive pulmonary disease: Plan: Acute on chronic exacerbation COPD. - Albuterol/Atrovent nebs scheduled - PRN Albuterol Nebs in between as needed - Solumedrol 40mg IV daily. - Added Pulmicort Respules as likely unable to get benefit from inhaler - Place on LABA and ICS - Continue ceftriaxone and Azithromycin -> Worse today; will repeat procalcitonin, BNP, will get CT chest. Sputum cx as he reports thick, brown/green sputum production. (2) Thoracic aortic aneurysm: Plan: CT of chest 2017 and 2020 with 4.6 CM Ascending Thoracic Aneurysm - No change from [id number] - Not sure who is chronically following previous CT done for dyspnea. (3) Heart failure with preserved ejection fraction, borderline, class II: Plan: ECHO in November 2020: EF 60-65% with mild dilated RV, aortic sclerosis, and normal RSVP. - Prior note indicated to continue Lasix, but none ordered. -> Will give Lasix 40 mg IV x 1 now, then monitor volume status and Cr (4) Cognitive disorder: Plan: Dementia chronic. Lives at home with . His recall of medications and medical history is limited. - He does report that he lives a pretty sedentary lifestyle, he has a chair lift to help him go up and down the steps at home - Does not do any physical exertion - carrying groceries, no outside work (5) Macrocytic anemia: Plan: B12/folate both high normal in 05/2021. Chronic remains on B12. - Monitor (6) Benign prostatic hyperplasia with urinary obstruction: Plan: No LUTS reported to me. - Continue finasteride Plan: DVT ppx - Lovenox 30 mg SQ daily Admission and Anticipated Discharge Date Admission Date: October 12, 2021 Subjective Not doing very well today. Reports his shortness of breath and sputum production are back up from yesterday. Now feels nearly back at where he was when he came here. Physical Exam Constitutional: WD/WN, vitals as above Eyes: EOM intact bilaterally; no conjunctival abnormality ENMT: external ear and nose normal, oropharynx normal Neck: trachea midline, no thyromegaly normal visual inspection Respiratory: + cough; no respiratory distress and not tachypneic Auscultation: + rhonchi (Diffuse) and + wheezes (Mild, diffuse) Cardiovascular: RRR, no murmur, no edema Gastrointestinal (Abdomen): Inspection/Auscultation: abdomen normal to inspection; abdomen not distended Musculoskeletal: no cyanosis or clubbing, extremities motor strength 5/5 Skin: no rashes, warm and dry Neurologic: moves all extremities and awake Psychiatric: Orientation: alert, oriented to person and cooperative Results & Data Results & Data ([facility]) Vital Signs (Past 12 Hours) Vital Signs Temp Pulse Resp BP BP Pulse Ox 10/15/21 16:00 36.6 C 75 18 112/66 92 10/15/21 13:52 78 22 89 L 10/15/21 08:00 36.3 C L 71 24 106/63 96 10/15/21 07:28 75 18 94 10/15/21 07:13 36.5 C 68 18 110/67 93 PG Care Time/CCT Total # of Minutes Spent Total Time Spent with Patient: Total time spent is greater than 50% in coordination of care (as documented) at patient's floor/unit and/or counseling patient: Coding Level of Care Code 91837 Subseq Hosp Care Lvl 3 Diagnoses Acute exacerbation of chronic obstructive pulmonary disease J44.1 Thoracic aortic aneurysm I71.2 Heart failure with preserved ejection fraction, borderline, class II I50.30 Cognitive disorder F09 Macrocytic anemia D53.9 Benign prostatic hyperplasia with urinary obstruction N40.1; N13.8
--- NOTE | 2021-10-15 18:19 | CT Scan Report ---
CT chest diagnostic wo con CT DOSE: 372.13 mGy.cm HISTORY: COPD, continue cough TECHNIQUE: Multiaxial CT images of the chest were performed without contrast. A dose lowering techni que was utilized adhering to the principles of ALARA. COMPARISON: Chest CT 04/14/2021. FINDINGS: No change in the chronic T4 and T12 moderate compression deformities. There are old, healed bilateral rib fractures again noted. No acute fractures identified within the chest. Limited views o f the upper abdomen demonstrate a normal liver and spleen. Normal esophagus. The heart remains modera tely enlarged. The ascending thoracic aorta measures up to 4.6 cm in diameter, unchanged. No mediasti nal or hilar lymphadenopathy. The suspect a trace left pleural effusion. No pericardial effusion. No pneumothorax. There is respiratory motion artifact resulting in suboptimal evaluation of the lungs. T here is complete collapse of the right middle lobe with near complete opacification of the right midd le lobe bronchus. There is also near complete opacification of the left lower lobe bronchi with patch y airspace consolidation/atelectasis within the left lower lobe. A few right lower lobe focal airspac e opacities are also noted. These areas of atelectasis/consolidation are new from the prior study. St able linear scarlike density within the left lung apex. IMPRESSION: 1. Interval development of complete collapse the right middle lobe with near complete opacification o f the right middle lobe bronchus. There has also been interval development of patchy airspace consoli dation within the bilateral lower lobes, left greater than right, with near complete opacification of the left lower lobe bronchi. Therefore, this raises the possibility of mucous plugging/aspiration re sulting in the bibasilar atelectasis/pneumonia. Bronchoscopy recommended for further evaluation. 2. Mild emphysema. 3. No change in the 4.6 cm ascending thoracic aortic aneurysm. ACT 112: Negative or not required by law. Electronically signed by: King Huggins M.D. 10/15/2021 6:18 PM
[2021-10-15] MEDS: ENOXAPARIN INJ 30 MG/0.3 ML SYR SQ SCH (19:29)
[2021-10-16] MEDS: ALBUT/IPRATROP 3MG/0.5MG NEB 3 ML VIAL INH SCH ×4 (00:20→19:20)
[2021-10-16] MEDS: BUDESONIDE 0.25 MG/2 ML VIAL (PULMICORT) NEB SCH ×2 (07:39→19:20)
[2021-10-16] MEDS: SODIUM CHLOR 7% 4 ML NEB NEB SCH ×3 (07:44→19:21)
[2021-10-16] MEDS: FINASTERIDE 5 MG TAB PO SCH (08:16)
[2021-10-16] MEDS: cefTRIAXone SODIUM 1,000 MG in DEXTROSE 5% 50 ML IV SCH (08:16)
[2021-10-16] MEDS: AZITHROMYCIN 250 MG TAB PO SCH (08:16)
[2021-10-16] MEDS: methylPREDNISolone 40 MG in SYRINGE 0 ML IV SCH (08:17)
[2021-10-16] MEDS: FLUTICASONE/VILANTEROL 100/25MCG 14 PUFFS/INHALER INH SCH (08:17)
[2021-10-16 09:41] LABS: Hematocrit (blood only) 36.6 % (42-52); Hemoglobin 12.1 g/dL (14.0-18.0); Mean Corpuscular Hemoglobin 34.5 pg (25-34); Mean Corpuscular Hgb Conc 33.1 g/dL (32-36); Mean Corpuscular Volume 104.3 fL (80-100); Platelet Count 297 K/uL (130-400); RDW Coefficient of Variation 15.3 % (11.5-14.5); RDW Standard Deviation 58.1 fL (36.4-46.3); Red Blood Count 3.51 M/uL (4.7-6.1); White Blood Count 11.31 K/uL (4.8-10.8)
[2021-10-16 10:03] LABS: BUN Creatinine Ratio 41.6 (10-20); Calcium 8.3 mg/dl (8.5-10.1); Creatinine Clr Calc Pharmacy 56.1 ml/min; Est GFR (African American) 93.2 ml/min; Est GFR (Non-African American) 80.5 ml/min; Magnesium 1.9 mg/dl (1.7-2.4); Potassium 3.3 mmol/L (3.5-5.1)
--- NOTE | 2021-10-16 13:13 | Hospitalist Progress Note ---
Date of Service October 16, 2021 Assessment & Plan (1) Acute exacerbation of chronic obstructive pulmonary disease: Plan: Acute on chronic exacerbation COPD. - Albuterol/Atrovent nebs scheduled - PRN Albuterol Nebs in between as needed - Solumedrol 40mg IV daily. - Added Pulmicort Respules as likely unable to get benefit from inhaler - Place on LABA and ICS - Continue ceftriaxone and Azithromycin -> CT chest on 10/15 showed "near complete opacification of the right middle lobe bronchus" with RML collapse. Added chest phsiotherapy and hypertonic saline nebs. Consulted pulmonology as radiology recommends bronchoscopy. No note left yet, but pulm did also put in hypertonic nebs, so I know he appeared on their list. (2) Heart failure with preserved ejection fraction, borderline, class II: Plan: ECHO in November 2020: EF 60-65% with mild dilated RV, aortic sclerosis, and normal RSVP. - Prior note indicated to continue Lasix, but none ordered. -> Gave Lasix 40 mg IV x 1 on 10/16; appears euvolemic today. (3) Thoracic aortic aneurysm: Plan: CT of chest 2017 and 2020 with 4.6 CM Ascending Thoracic Aneurysm - No change from [id number] - Not sure who is chronically following previous CT done for dyspnea. (4) Cognitive disorder: Plan: Dementia chronic. Lives at home with . His recall of medications and medical history is limited. - He does report that he lives a pretty sedentary lifestyle, he has a chair lift to help him go up and down the steps at home - Does not do any physical exertion - carrying groceries, no outside work (5) Macrocytic anemia: Plan: B12/folate both high normal in 05/2021. Chronic remains on B12. - Monitor (6) Benign prostatic hyperplasia with urinary obstruction: Plan: Had Avila inserted in ED; asked RN to remove on 10/16. Will monitor for LUTS. - Continue finasteride Plan: DVT ppx - Lovenox 30 mg SQ daily Admission and Anticipated Discharge Date Admission Date: October 12, 2021 Subjective Reports some improvement today in his breathing. Less cough. Reports no fevers/chills, chest pain, abdominal pain, nausea, or vomiting. Physical Exam Constitutional: WD/WN, vitals as above Eyes: EOM intact bilaterally; no conjunctival abnormality ENMT: external ear and nose normal, oropharynx normal Neck: trachea midline, no thyromegaly normal visual inspection Respiratory: + cough; no respiratory distress and not tachypneic Auscultation: + rhonchi (Diffuse) and + wheezes (Mild, diffuse) Cardiovascular: RRR, no murmur, no edema Gastrointestinal (Abdomen): Inspection/Auscultation: abdomen normal to inspection; abdomen not distended Musculoskeletal: no cyanosis or clubbing, extremities motor strength 5/5 Skin: no rashes, warm and dry Neurologic: moves all extremities and awake Psychiatric: Orientation: alert, oriented to person and cooperative Results & Data Results & Data ([facility]) Vital Signs (Past 12 Hours) Vital Signs Temp Pulse Resp BP Pulse Ox 10/16/21 07:40 77 18 96 10/16/21 07:35 37 C 75 18 108/67 96 PG Care Time/CCT Total # of Minutes Spent Total Time Spent with Patient: Total time spent is greater than 50% in coordination of care (as documented) at patient's floor/unit and/or counseling patient: Coding Level of Care Code 85788 Subseq Hosp Care Lvl 3 Diagnoses Acute exacerbation of chronic obstructive pulmonary disease J44.1 Thoracic aortic aneurysm I71.2 Heart failure with preserved ejection fraction, borderline, class II I50.30 Cognitive disorder F09 Macrocytic anemia D53.9 Benign prostatic hyperplasia with urinary obstruction N40.1; N13.8
--- NOTE | 2021-10-16 14:56 | Pulmonary Consultation ---
Date of Consultation October 16, 2021 Assessment & Plan (1) Acute exacerbation of chronic obstructive pulmonary disease: (2) Atelectasis: (3) Cognitive disorder: (4) Heart failure with preserved ejection fraction, borderline, class II: (5) Chronic dyspnea: 89-year-old frail male with a past medical history of COPD, diastolic CHF, dementia and osteoarthritis who presented to the hospital due to a COPD exacerbation. He does not sound bronchospastic at present. Recommend switching to oral prednisone and tapering him down over the next 2 to 3 days. He does have evidence of right middle lobe atelectasis likely related to poor cough and respiratory effort. There may be an element of chronic aspiration. I do not think that he is a good candidate for bronchoscopy at this time given his frailty and cognitive issues. Would recommend conservative strategy for mucociliary clearance including flutter valve, vest therapy every 4 hours and hypertonic saline twice daily. Continue nebs as currently prescribed. Continue oxygen to maintain saturations of 88 to 92%. He is intolerant of noninvasive ventilatory support. Continue as needed diuretic therapy. Would recommend evaluation for hospice as an outpatient given his frailty, chronic dyspnea and comorbid conditions. Unfortunately, we do not have palliative care services available on an inpatient basis. Thank you for the consult. Pulmonary will continue to follow with you. History of Present Illness Reason for Consultation: COPD and hypoxia Attending Physician: Chidi Gonzalez MD History of Present Illness 89-year-old male with a past medical history of COPD, dementia, macrocytic anemia, aortic aneurysm, diastolic heart failure and osteoporosis who presented to the hospital 10/12 due to increasing shortness of breath. He has been using his nebulizer without any improvement of symptoms. He notes that he feels chronically tired and short of breath. He does have a cough that is occasionally productive of mucus. No hemoptysis is seen. No recent fevers or chills. He was placed on BiPAP on arrival to the hospital, but notes that he is claustrophobic and does not tolerate BiPAP well. He is currently on hypertonic saline and vest therapy. He is also on IV Solu-Medrol, nebulized Pulmicort, duo nebs and antibiotics. CT chest completed 10/15 was a poor study due to motion artifact but noted right middle lobe collapse due to inspissated mucus. Also seen with bilateral lower lobe atelectasis. He was previously seen in the pulmonary clinic by Dr. Washington and SHIRLEY Mchugh. Allergies Allergy/AdvReac Type Severity Reaction Status Date / Time No Known Allergies Allergy Verified 06/20/21 10:35 Home Medications Medication Instructions Recorded Confirmed Type mecobalamin (vitamin B12) 1,000 1,000 mcg PO DAILY 11/17/19 10/12/21 History mcg chewable tablet finasteride 5 mg tablet 5 mg PO DAILY #90 tab 10/29/20 10/12/21 Rx ipratropium 0.5 mg-albuterol 3 mg 3 ml INH Q4H PRN #360 ml 12/17/20 10/12/21 Rx (2.5 mg base)/3 mL nebulization soln cholecalciferol (vitamin D3) 50 50 mcg PO DAILY 05/30/21 10/12/21 History mcg (2,000 unit) capsule furosemide 20 mg tablet See Rx Instructions PO .COMPLEX 06/01/21 10/12/21 Rx #180 tab Patient History Medical History (Updated 10/16/21 @ 14:53 by Bhavin Pearl MD) Anemia Chronic Asthma Atelectasis Benign prostatic hyperplasia with urinary obstruction Chronic dyspnea Chronic osteoarthritis COPD (chronic obstructive pulmonary disease) Degenerative arthritis of knee, bilateral Dementia Patient + provided PMHX to PAT RN Frequent falls 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, borderline, class II History of basal cell carcinoma Left inguinal hernia Poor historian Poor short term memory Thoracic aortic aneurysm 4.5 cm per recent Abd/Pelvis CT 12/08/20 ([place]), under surveillance Venous insufficiency Surgical History H/O repair of rotator cuff History of basal cell carcinoma (BCC) excision History of biliary stent insertion History of ERCP ERCP (12/09/20): Grade view 2, MAC# 3.0, ETT 8.0 at [facility] History of lithotripsy History of squamous cell carcinoma excision History of tooth extraction Hx of cataract surgery Hx of cholecystectomy 12/13/20 ([place]) Hx of colonoscopy Family History Mother Acquired amyotrophic lateral sclerosis Father Throat cancer Laryngeal cancer Denies family history of Prostate cancer Social History (Updated 10/12/21 @ 14:25 by ANDRE Anaya) Smoking Status: Former smoker Tobacco Type: Pipe Second Hand Exposure: No; Hx Alcohol Use: Yes Alcohol type: beer Hx Substance Use: No Preferred Language: Uzbek Communication Ability: Effective Visual Impairment: Limited Hearing Ability: Hard of Hearing Waterproof Material Folder Required: No Beliefs That Will Affect Care: None marital status: Current Living Situation: Spouse Current Living Situation Comment: Lives at home with . 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 Nasal cannula tubing in place. Eyes: Pupils are equal round and reactive to light. Conjunctivae are normal. Anicteric sclera. Ears nose, mouth and throat: Nasal cannula in place. No deformities. Neck: Trachea is midline. Visual inspection is normal. Respiratory: Diminished lung sounds bilaterally. Normal respiratory effort. Prolonged phase of exhalation. Cardiovascular: Regular rate and rhythm. No murmurs. No edema. Gastrointestinal: Normal bowel sounds, soft, nontender and nondistended. No hepatosplenomegaly noted. Musculoskeletal: No cyanosis. Patient is able to move all extremities. Skin: No rashes, warm dry and intact. Neurologic: No obvious focal neurological deficits seen. Psychiatric: Alert and oriented x3 with a euthymic affect. Results & Data Results & Data ([facility]) Vital Signs (Past 12 Hours) Vital Signs Temp Pulse Resp BP Pulse Ox 10/16/21 13:55 81 20 95 10/16/21 07:40 77 18 96 10/16/21 07:35 37 C 75 18 108/67 96 PG Care Time/CCT Total # of Minutes Spent Total Time Spent with Patient: Total time spent is greater than 50% in coordination of care (as documented) at patient's floor/unit and/or counseling patient: Coding Level of Care Code 46271 Initial Inpt Care Lvl 3 Diagnoses Acute exacerbation of chronic obstructive pulmonary disease J44.1 Atelectasis J98.11 Cognitive disorder F09 Heart failure with preserved ejection fraction, borderline, class II I50.30 Chronic dyspnea R06.09
[2021-10-16] MEDS: ENOXAPARIN INJ 30 MG/0.3 ML SYR SQ SCH (21:00)
[2021-10-17] MEDS: ALBUT/IPRATROP 3MG/0.5MG NEB 3 ML VIAL INH SCH ×4 (00:10→19:26)
[2021-10-17 07:03] LABS: Hematocrit (blood only) 37.6 % (42-52); Hemoglobin 12.4 g/dL (14.0-18.0); Mean Corpuscular Hemoglobin 34.3 pg (25-34); Mean Corpuscular Volume 104.2 fL (80-100); Platelet Count 286 K/uL (130-400); Red Blood Count 3.61 M/uL (4.7-6.1); White Blood Count 9.33 K/uL (4.8-10.8)
[2021-10-17] MEDS: BUDESONIDE 0.25 MG/2 ML VIAL (PULMICORT) NEB SCH ×2 (07:14→19:55)
[2021-10-17] MEDS: SODIUM CHLOR 7% 4 ML NEB NEB SCH ×2 (07:14→19:26)
[2021-10-17 07:26] LABS: BUN Creatinine Ratio 35.8 (10-20); Calcium 8.5 mg/dl (8.5-10.1); Creatinine Clr Calc Pharmacy 64.5 ml/min; Est GFR (African American) 98.7 ml/min; Est GFR (Non-African American) 85.2 ml/min; Potassium 3.9 mmol/L (3.5-5.1)
--- NOTE | 2021-10-17 08:59 | Pulmonology Progress Note ---
Date of Service October 17, 2021 Assessment & Plan (1) Acute exacerbation of chronic obstructive pulmonary disease: (2) Atelectasis: (3) Cognitive disorder: (4) Heart failure with preserved ejection fraction, borderline, class II: (5) Chronic dyspnea: Plan: Impression: 89-year-old frail male with a past medical history of COPD, diastolic CHF, dementia and osteoarthritis who presented to the hospital due to a COPD exacerbation. Recommendations: 1. COPD: The patient appears reasonably well controlled currently without evidence of bronchospasm. There is no indication for additional steroids and these will be stopped at this point time. We will discontinue Breo as he is already receiving nebulized budesonide. Add Perforomist. Continue azithromycin 2. Hypoxemic respiratory failure: Patient will need assessment for home oxygen with formal two-step evaluation. If oxygen is required, this will need to be set up prior to discharge. 3. 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 Consideration for outpatient CPAP may be appropriate although the patient's underlying neurocognitive dysfunction may limit our success and this therapeutic intervention. will follow response in the hospital. 4. Right middle lobe atelectasis: Suspect this is related to the patient's tracheobronchial malacia. Will continue pulmonary clearance. Given it is advanced age and neurocognitive dysfunction, I am not sure that follow-up imaging would be warranted. Discontinue Rocephin 5. Agree with DNR/DNI status. We will continue to follow with goals of therapy at this point time. Admission and Anticipated Discharge Date Admission Date: October 12, 2021 Subjective Patient seen and examined. EMR reviewed. Discussed with off going manager bar. The patient is sitting up at the bedside. He just finished breakfast. He reports that he continues to have issues with breathing. His biggest complaint is coughing up copious amounts of phlegm in the morning. He does not use CPAP or oxygen at baseline. He lives independently. He denies fevers chills or night sweats. He is tolerating oral intake. Review of Systems Review of Systems: All systems reviewed & are unremarkable except as noted in Subjective Physical Exam Constitutional: WD/WN, vitals as above Neck: trachea midline, no thyromegaly Respiratory: normal respiratory effort, lungs clear to auscultation Cardiovascular: Rate/Rhythm: regular rate Extremities: + edema Gastrointestinal (Abdomen): normal bowel sounds, soft, nontender, no hepatosp lenomegaly Musculoskeletal: Extremities: extremities normal to inspection Skin: no rashes, warm and dry Neurologic: Nonfocal exam Lymphatic: no cervical lymphadenopathy Results & Data Results & Data ([facility]) Vital Signs (Past 12 Hours) Vital Signs Temp Pulse Pulse Resp BP BP Pulse Ox 10/17/21 07:15 67 18 94 10/17/21 07:00 36.4 C L 69 22 106/69 99 10/17/21 00:10 96 H 18 97 10/16/21 23:03 36.3 C L 71 18 108/65 96 10/16/21 21:00 71 25 H 94 Laboratory Results 10/17/21 06:33 10/17/21 06:33 Diagnostic Findings No new imaging PG Care Time/CCT Total # of Minutes Spent Total Time Spent with Patient: Total time spent is greater than 50% in coordination of care (as documented) at patient's floor/unit and/or counseling patient: Coding Level of Care Code 03456 Subseq Hosp Care Lvl 2 Diagnoses Acute exacerbation of chronic obstructive pulmonary disease J44.1 Atelectasis J98.11 Cognitive disorder F09 Heart failure with preserved ejection fraction, borderline, class II I50.30 Chronic dyspnea R06.09
[2021-10-17] MEDS: cefTRIAXone SODIUM 1,000 MG in DEXTROSE 5% 50 ML IV SCH (09:00)
[2021-10-17] MEDS: FINASTERIDE 5 MG TAB PO SCH (09:25)
[2021-10-17] MEDS: AZITHROMYCIN 250 MG TAB PO SCH (09:25)
[2021-10-17] MEDS: FORMOTEROL 20 MCG/2 ML VIAL NEB SCH ×2 (11:08→19:56)
[2021-10-17] MEDS: methylPREDNISolone 40 MG in SYRINGE 0 ML IV SCH (11:20)
[2021-10-17] MEDS: FLUTICASONE/VILANTEROL 100/25MCG 14 PUFFS/INHALER INH SCH (11:20)
--- NOTE | 2021-10-17 13:24 | Hospitalist Progress Note ---
Date of Service October 17, 2021 Assessment & Plan (1) Acute exacerbation of chronic obstructive pulmonary disease: Plan: Acute on chronic exacerbation COPD. - Albuterol/Atrovent nebs scheduled - PRN Albuterol Nebs in between as needed - Added Pulmicort Respules as likely unable to get benefit from inhaler - Placed on LABA and ICS - Pulmonology stopped ceftriaxone on 10/17. Continue azithromycin. - Steroids stopped on 10/17 by pulm. -> CT chest on 10/15 showed "near complete opacification of the right middle lobe bronchus" with RML collapse. Added chest phsiotherapy and hypertonic saline nebs. Consulted pulmonology as radiology recommended bronchoscopy. Pulmonology deferred for conservative measures. Seems to be improving. (2) Heart failure with preserved ejection fraction, borderline, class II: Plan: ECHO in November 2020: EF 60-65% with mild dilated RV, aortic sclerosis, and normal RSVP. - Prior note indicated to continue Lasix, but none ordered. -> Gave Lasix 40 mg IV x 1 on 10/16; appears euvolemic today. (3) Thoracic aortic aneurysm: Plan: CT of chest 2017 and 2020 with 4.6 CM Ascending Thoracic Aneurysm - No change from [id number] - Not sure who is chronically following previous CT done for dyspnea. (4) Cognitive disorder: Plan: Dementia chronic. Lives at home with . His recall of medications and medical history is limited. - He does report that he lives a pretty sedentary lifestyle, he has a chair lift to help him go up and down the steps at home - Does not do any physical exertion - carrying groceries, no outside work (5) Macrocytic anemia: Plan: B12/folate both high normal in 05/2021. Chronic remains on B12. - Monitor (6) Benign prostatic hyperplasia with urinary obstruction: Plan: Had Avila inserted in ED; asked RN to remove on 10/16. Will monitor for LUTS. - Continue finasteride Plan: DVT ppx - Lovenox 30 mg SQ daily Admission and Anticipated Discharge Date Admission Date: October 12, 2021 Subjective Breathing is better today. Less sputum production. Reports no fevers/chills, chest pain, shortness of breath, abdominal pain, nausea, or vomiting. Physical Exam Constitutional: WD/WN, vitals as above Eyes: EOM intact bilaterally; no conjunctival abnormality ENMT: external ear and nose normal, oropharynx normal Neck: trachea midline, no thyromegaly normal visual inspection Respiratory: no respiratory distress, no cough and not tachypneic Auscultation: + rhonchi (Mild); no wheezes Cardiovascular: RRR, no murmur, no edema Gastrointestinal (Abdomen): Inspection/Auscultation: abdomen normal to inspection; abdomen not distended Musculoskeletal: no cyanosis or clubbing, extremities motor strength 5/5 Skin: no rashes, warm and dry Neurologic: moves all extremities and awake Psychiatric: Orientation: alert, oriented to person and cooperative Results & Data Results & Data ([facility]) Vital Signs (Past 12 Hours) Vital Signs Temp Pulse Resp BP Pulse Ox 10/17/21 10:03 95 10/17/21 07:15 67 18 94 10/17/21 07:00 36.4 C L 69 22 106/69 99 PG Care Time/CCT Total # of Minutes Spent Total Time Spent with Patient: Total time spent is greater than 50% in coordination of care (as documented) at patient's floor/unit and/or counseling patient: Coding Level of Care Code 15008 Subseq Hosp Care Lvl 2 Diagnoses Acute exacerbation of chronic obstructive pulmonary disease J44.1 Heart failure with preserved ejection fraction, borderline, class II I50.30 Thoracic aortic aneurysm I71.2 Cognitive disorder F09 Macrocytic anemia D53.9 Benign prostatic hyperplasia with urinary obstruction N40.1; N13.8
[2021-10-17] MEDS: ENOXAPARIN INJ 30 MG/0.3 ML SYR SQ SCH (20:34)
[2021-10-18] MEDS: ALBUT/IPRATROP 3MG/0.5MG NEB 3 ML VIAL INH SCH ×3 (00:01→13:37)
[2021-10-18] MEDS: BUDESONIDE 0.25 MG/2 ML VIAL (PULMICORT) NEB SCH (07:16)
[2021-10-18] MEDS: FORMOTEROL 20 MCG/2 ML VIAL NEB SCH (07:16)
[2021-10-18] MEDS: SODIUM CHLOR 7% 4 ML NEB NEB SCH (07:16)
[2021-10-18] MEDS: FINASTERIDE 5 MG TAB PO SCH (08:06)
[2021-10-18] MEDS: AZITHROMYCIN 250 MG TAB PO SCH (08:06)
--- NOTE | 2021-10-18 09:12 | Pulmonology Progress Note ---
Date of Service October 18, 2021 Assessment & Plan (1) Atelectasis: (2) Acute exacerbation of chronic obstructive pulmonary disease: (3) Heart failure with preserved ejection fraction, borderline, class II: (4) Chronic dyspnea: (5) Cognitive disorder: Plan: Impression: 89-year-old frail male with a past medical history of COPD, diastolic CHF, dementia and osteoarthritis who presented to the hospital due to a COPD exacerbation. Clinically stable and per case management notes patient being transported to the [facility] at [facility] today. From a pulmonology standpoint this is acceptable. Patient is clinically stable. Recommendations: 1. COPD: The patient appears reasonably well controlled currently without evidence of bronchospasm. There is no indication for additional steroids. Continue nebulized budesonide and Perforomist. Continue azithromycin for 2 additional days. 2. Hypoxemic respiratory failure: Patient will need assessment for home oxygen with formal two-step evaluation. If oxygen is required, this will need to be set up prior to discharge. Consider overnight pulse oximetry study to evaluate oxygen requirements if two-step is not performed prior to transfer. 3. 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 Consideration for outpatient CPAP may be appropriate although the patient's underlying neurocognitive dysfunction may limit our success and this therapeutic intervention. Recheck with CT in 2-3 months. 4. Right middle lobe atelectasis: Suspect this is related to the patient's tracheobronchial malacia. Recheck with CT in 2 to 3 months. 5. Agree with DNR/DNI status. We will continue to follow with goals of therapy at this point time. Admission and Anticipated Discharge Date Admission Date: October 12, 2021 Supervising Physician Co-Signing Physician Notes Patient seen and examined. EMR reviewed. Patient reports that his breathing is better today. He has not had any of the worrisome episodes of nocturnal sputum production which were problematic and brought him into the hospital. He does not report fevers chills or night sweats. He is not really ambulatory. He does note some pedal edema. He is very fixated on going home with oxygen. I am concerned that the patient's underlying dementia may preclude the ability for him to effectively use metered-dose inhalers so would keep him on nebulized therapies for now. Would recommend a follow-up CT scan in 8 to 10 weeks to evaluate the right middle lobe collapse although I suspect this is likely related to mucous plugging. Given his advanced age and comorbidities, would not pursue bronchoscopy at the current time. Given his significant tracheobronchial malacia, consideration for nocturnal CPAP might be appropriate however it was likely the patient would require an overnight attended polysomnogram to justify this therapy. Unclear if he wants to proceed with that intervention or not. He needs to be out of bed and ambulatory. I advised the patient that if he does not qualify for oxygen, it is unlikely to benefit him. Consideration for overnight oximetry might be appropriate to see whether or not he qualifies for oxygen at night. Patient appears to be optimized with regards to his pulmonary status at this point time and should be able to dismiss from the hospital. I would be happy to see him back in clinic for pulmonary follow-up if needed. Subjective Patient seen at bedside this morning. Patient states that his breathing is tolerable, but he is on this track of consistently demanding to be on oxygen even though his oxygen saturation has been greater than 90% on room air today. Patient seems to be continually improving since adding Performomist yesterday. Patient denies any fevers, chills, nausea, vomiting, or chest pain at this time. Review of Systems Review of Systems: All systems reviewed & are unremarkable except as noted in HPI & below Physical Exam Constitutional: well developed, well nourished and + frail appearing; no acute distress Eyes: + anicteric sclerae Neck: trachea midline, no thyromegaly Respiratory: normal respiratory effort; no respiratory distress Auscultation: + rhonchi (Mild, best heard over the R middle lobe) Cardiovascular: Rate/Rhythm: regular rate and regular rhythm Heart Sounds: normal S1 and normal S2 Extremities: + edema (trace, pitting b/l) Gastrointestinal (Abdomen): normal bowel sounds, soft, nontender, no hepatosplenomegaly Skin: no rashes, warm and dry Neurologic: Cranial Nerves: PERRL Psychiatric: Orientation: alert Eye Contact: good eye contact Results & Data Results & Data ([facility]) Vital Signs (Past 12 Hours) Vital Signs Temp Pulse Resp BP BP Pulse Ox 10/18/21 07:40 36.3 C L 65 19 115/68 92 10/18/21 07:19 62 22 95 10/18/21 00:01 75 14 94 10/17/21 23:28 36.5 C 72 18 126/77 94 Resident Activity Tracking Resident Involvement: Resident Care Provided Care Provided: Adult Hospital Medicine
--- NOTE | 2021-10-18 11:15 | Billing Data ---
Date of Service October 18, 2021 Coding Level of Care Code 32838 Subseq Hosp Care Lvl 2
--- NOTE | 2021-10-18 11:20 | Discharge Summary ---
Date of Service October 18, 2021 Admission HPI Per Admitting Provider 89 YOM with past medical history of: COPD, previous pipe smoker, lower extremity edema, dementia, macrocytic anemia, aortic aneurysm 4.6cm (2020), HFpEF. Patient comes to the EMD today for complaints of increased dyspnea, cough, and increase in sputum production. The patient states this started about 4 days ago, but last night he used his nebulizer continuous without benefit. He called EMS today because he was miserable trying to catch his breath at home to the point where he could not eat his breakfast. He states that he can take a few steps before becoming completely winded. His cough is intermittent worsened by deep breath or moving around, he is producing yellow thick sputum- this is his normal, but the amount has increased. He was noted to have Spo2 88% on arrival and was placed on 2LNC with appropriate increase in spo2, but not change in ventilatory status. He was given 125 mg solumedrol and albuterol nebulizer. He had CXR done without no opacities. His CBC is without elevation in his WBC or EOS, his BMP is notable for HCO3 33 and BUN of 30, otherwise unremarkable. Patient is tachypneic with rest and dyspneic with conversation, he is feeling that he is needing more oxygen to ease his work of breathing. Will obtain ABG and place BiPAP/CPAP for his dyspnea/tachypnea. Will admit to medical telemetry- schedule his Combivent nebs with PRN albuterol in between. Pulmicort repulse nebs BID as he is unlikely able to get HFA/Puffer into his airways. Continue steroids at Solumedrol 40mg q6. Will give 20mg IV Lasix as well. Patient reports only using his nebulizer at home which he has hard time remembering the medications. He has been on Symbicort in the past but he can't recall if he continues this and his not in his current medication rec. COVID and Influenza PCR- are NEGATIVE on admission Principal Diagnosis COPD Exacerbation, Acute respiratory failure with hypoxia Discharge Exam Constitutional WD/WN, vitals as above Eyes PERRL, conjunctivae normal, anicteric sclerae ENMT external ear and nose normal, oropharynx normal Neck trachea midline, no thyromegaly Respiratory normal respiratory effort; no cough Auscultation: + rhonchi (right base); no crackles and no wheezes Cardiovascular Rate/Rhythm: regular rate and regular rhythm Heart Sounds: no murmur Extremities: + edema (trace edema legs bilat) Chest (Breasts) Chest: normal inspection of chest Gastrointestinal (Abdomen) normal bowel sounds, soft, nontender, no hepatosplenomegaly Musculoskeletal Extremities: extremities normal to inspection; no cyanosis and no clubbing Skin no rashes, warm and dry Neurologic moves all extremities and awake; no focal motor deficits Psychiatric Orientation: alert, oriented to person, oriented to place and cooperative Discharge Data Allergies Allergy/AdvReac Type Severity Reaction Status Date / Time No Known Allergies Allergy Verified 06/20/21 10:35 Consultations 10/12/21 13:17 ED Decision to Admit Stat 10/15/21 18:21 Consult Pulmonology Routine Ordered Studies 10/15/21 16:42 CT chest diagnostic wo con Routine Hospital Course (1) Acute exacerbation of chronic obstructive pulmonary disease: Acute on chronic exacerbation COPD. Improved -> CT chest on 10/15 showed "near complete opacification of the right middle lobe bronchus" with RML collapse. Added chest physiotherapy and hypertonic saline nebs. Consulted pulmonology as radiology recommended bronchoscopy. Pulmonology deferred for conservative measures. Seems to be improving. -repeat CT CHest in 2-3 months as per PULM - Albuterol/Atrovent nebs prn - Added Pulmicort Respules nebs bid, Perforomist bid scheduled nebs as likely unable to get benefit from inhaler - Pulmonology stopped ceftriaxone on 10/17. Continue azithromycin to compelte 7 day course-needs one more day - Steroids stopped on 10/17 by pulm. -needs overnight pulse oximetry study and 2 step walk test to assess O2 needs prior to discharge from SNF -consider CPAP hs if pt can tolerate (2) Heart failure with preserved ejection fraction, borderline, class II: ECHO in November 2020: EF 60-65% with mild dilated RV, aortic sclerosis, and normal RSVP. - Prior note indicated to continue Lasix, but none ordered. -> Gave Lasix 40 mg IV x 1 on 10/16; appears euvolemic except slight peripheral edema which is chronic -changed home lasix dose to only 20mg po once daily (3) Thoracic aortic aneurysm: CT of chest 2017 and 2020 with 4.6 CM Ascending Thoracic Aneurysm - No change from [id number] - Not sure who is chronically following previous CT done for dyspnea. -f/u with PCP after discharge control BP as needed (4) Cognitive disorder: Dementia chronic. Lives at home with . His recall of medications and medical history is limited. - He does report that he lives a pretty sedentary lifestyle, he has a chair lift to help him go up and down the steps at home - Does not do any physical exertion - carrying groceries, no outside work (5) Macrocytic anemia: B12/folate both high normal in 05/2021. Chronic remains on B12. - Monitor (6) Benign prostatic hyperplasia with urinary obstruction: Had Avila inserted in ED; has since been removed, voiding on own - Continue finasteride DVT ppx - Lovenox 30 mg SQ daily Dispo-stable for dc to SNF Total Time Total Time Spent Total Time Spent (In Minutes): 35 min Discharge Plan Discharge Items Patient Disposition: Transfer Custodial Fac Reason For Visit: COPD EXACERBATION,HYPOXIA Discharge Diagnosis: COPD exacerbation, Acute respiratory failure with hypoxia Condition on Discharge: Good Activity: As commented below Lifting: Gradually increase as tolerated Bathing: No limitations Exercise/Sports: Gradually increase as tolerated Non-emergency contact: Primary Care Provider and Engineering Project Manager Call non-emergency contact if: you have any medication questions, your symptoms worsen and you have a fever Follow-up/Referrals: Eric Valadez, [Primary Care Provider] - (Follow up within 1-2 weeks after discharge from SNF) Diet: Heart Healthy Addtl Attending Provider Instructions: Please finish out one more day of azithromycin for your antibiotic. You are no longer on any steroids (prednisone) for your COPD exacerbation. Continue nebulizers as prescribed. You should have a repeat Chest CT in 2-3 months for follow up on your right middle lobe collapse seen on previous Chest CT. Please have an overnight pulse oximetry and a 2 step walk test prior to discharge from the rehab to assess your need for home oxygen. Pending Studies at Discharge: No Stand-Alone Forms: My [facility] Skilled Items Patient informed of condition?: Yes DNR: Yes Discharge Level of Care: Skilled Communicable Disease: No Discharge Prognosis: Improving Lines: None Urinary Catheter: No Medications and DC Order Prescriptions: New azithromycin 250 mg Tablet 250 mg PO QAM Qty: 1 RF: 0 formoterol fumarate [Perforomist] 20 mcg/2 mL Solution For Nebulization 20 mcg NEB BIDR Qty: 60 RF: 0 budesonide 0.25 mg/2 mL Suspension For Nebulization 0.25 mg NEB BIDR Qty: 60 RF: 0 Continued finasteride 5 mg tablet 5 mg PO DAILY Qty: 90 RF: 3 cholecalciferol (vitamin D3) 50 mcg (2,000 unit) capsule 50 mcg PO DAILY RF: 0 mecobalamin (vitamin B12) 1,000 mcg tablet,chewable 1,000 mcg PO DAILY RF: 0 Changed furosemide 20 mg tablet 20 mg PO QAM Qty: 30 RF: 3 ipratropium-albuterol 0.5 mg-3 mg(2.5 mg base)/3 mL solution for nebulization 3 ml INH Q6 PRN (Reason: shortness of breath or wheezing) Qty: 360 RF: 11 Discharge Orders: Discharge Order (Routine); Ordered 10/18/21 Ordered By: Mica Weaver Admission Data Admit Date/Time: 10/12/21 13:58 Attending Provider: Mica Weaver Admit Provider: Grady Parikh Primary Care Provider: Eric Valadez Other Providers: Chidi Gonzalez ; Bhavin Pearl Coding Level of Care Code D/C DAY MANAGEMENT >30 MINS Diagnoses Acute exacerbation of chronic obstructive pulmonary disease J44.1 Heart failure with preserved ejection fraction, borderline, class II I50.30 Thoracic aortic aneurysm I71.2 Cognitive disorder F09 Macrocytic anemia D53.9 Benign prostatic hyperplasia with urinary obstruction N40.1; N13.8
== END 2021-10-18 14:55 | DRG 190 ==
LOC: ED 09:24 → EDINP 13:58 → SUATTDRO 13:58 → 2N 15:58 → 3N 10-13 22:25

== ENCOUNTER 2021-12-07 13:22 | Observation (INO) ==
[2021-12-07] MEDS ORDERED: ALBUT/IPRATROP 3MG/0.5MG NEB 3 ML VIAL INH STA (13:30)
[2021-12-07] MEDS ORDERED: methylPREDNISolone 125 MG/2 ML VIAL IV STA (13:30)
[2021-12-07 14:04] LABS: Basophils % (auto) 0.1 %; Eosinophils % (auto) 2.6 %; Hematocrit (blood only) 43.1 % (42-52); Hemoglobin 14.8 g/dL (14.0-18.0); Lymphocytes % (auto) 20.4 %; Mean Corpuscular Hemoglobin 35.2 pg (25-34); Mean Corpuscular Hgb Conc 34.3 g/dL (32-36); Mean Corpuscular Volume 102.4 fL (80-100); Monocytes % (auto) 9.7 %; Neutrophils % (auto) 66.9 %; Platelet Count 302 K/uL (130-400); RDW Coefficient of Variation 14.2 % (11.5-14.5); Red Blood Count 4.21 M/uL (4.7-6.1); White Blood Count 7.41 K/uL (4.8-10.8)
[2021-12-07 14:05] LABS: Basophils # (auto) 0.01 K/uL (0-0.2); Eosinophils # (auto) 0.19 K/uL (0-0.5); Immature Granulocytes # (auto) 0.02 K/uL (0.00-0.02); Immature Granulocytes % (auto) 0.3 %; Lymphocytes # (auto) 1.51 K/uL (1.2-3.4); Monocytes # (auto) 0.72 K/uL (0.11-0.59); Neutrophils # (auto) 4.96 K/uL (1.4-6.5)
--- NOTE | 2021-12-07 14:10 | XRay Report ---
SINGLE VIEW CHEST CLINICAL HISTORY: Dyspnea. FINDINGS: An AP, portable, upright chest radiograph is compared to study dated 10/12/2021 and correlate d with chest CT dated 10/15/2021. The examination is degraded by portable technique and patient rotati on. The heart is enlarged noting atherosclerotic calcification of the thoracic aorta pulmonary vascul ature is noncongested. Chronic interstitial thickening is similar to previous. There is bibasilar sca rring/atelectasis. Platelike atelectasis is noted in the right midlung. No airspace consolidation or large pleural effusion is identified. No pneumothorax is seen. The skeletal structures are osteopenic . The bony thorax is grossly intact. Arthritic change is noted in the shoulders. IMPRESSION: Cardiomegaly with no acute cardiopulmonary abnormality. ACT 112: Negative or not required by law. Electronically signed by: Vince Schwartz M.D. 12/07/2021 2:08 PM
[2021-12-07 14:43] LABS: Troponin I 0.04 ng/ml (0-0.04)
--- NOTE | 2021-12-07 14:50 | Emergency Department Note ---
History of Present Illness General Chief complaint: Referred by Doctor Stated complaint: DR WASHINGTON SENT, SOB, LUNG ISSUES Time Seen by Provider: 12/07/21 13:29 History of Present Illness Is an 89-year-old male who presents to the ED with a chief complaint of COPD. The patient states that he was sent from 's office for admission. The patient states that he has been having chronic shortness of breath for years. He states that it was worse over the past few days. He was seen by Dr. Washington today and sent here for inpatient evaluation. The patient denies any fevers or new cough. He was an ex-smoker. The patient has had some leg swelling for which he takes Lasix daily. This is not worse than his baseline edema. Home Medications Medication Instructions Recorded Confirmed Type cholecalciferol (vitamin D3) 50 50 mcg PO DAILY 05/30/21 12/07/21 History mcg (2,000 unit) capsule ipratropium 0.5 mg-albuterol 3 mg 3 ml INH Q6 PRN #360 ml 10/18/21 12/07/21 Rx (2.5 mg base)/3 mL nebulization soln finasteride 5 mg tablet 5 mg PO DAILY #90 tab 11/04/21 12/07/21 Rx Shower Chair #1 ea 11/14/21 11/14/21 Rx budesonide 0.25 mg/2 mL suspension 0.25 mg NEB BIDR #120 ml 11/23/21 12/07/21 Rx for nebulization furosemide 40 mg tablet 40 mg PO AMHS 12/07/21 12/07/21 History potassium chloride 20 mEq 20 meq PO DAILY 12/07/21 12/07/21 History tablet,extended release Allergies Allergy/AdvReac Type Severity Reaction Status Date / Time No Known Allergies Allergy Verified 12/07/21 14:31 Past Med/Surg History Medical History Anemia Chronic Asthma Atelectasis Benign prostatic hyperplasia with urinary obstruction Chronic dyspnea Chronic osteoarthritis COPD (chronic obstructive pulmonary disease) Degenerative arthritis of knee, bilateral Dementia Patient + provided PMHX to PAT RN Frequent falls 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, borderline, class II History of basal cell carcinoma Left inguinal hernia Poor historian Poor short term memory Thoracic aortic aneurysm 4.5 cm per recent Abd/Pelvis CT 4/7/21 ([place]), under surveillance Venous insufficiency Surgical History H/O repair of rotator cuff History of basal cell carcinoma (BCC) excision History of biliary stent insertion History of ERCP ERCP (12/09/20): Grade view 2, MAC# 3.0, ETT 8.0 at [facility] History of lithotripsy History of squamous cell carcinoma excision History of tooth extraction Hx of cataract surgery Hx of cholecystectomy 12/13/20 ([place]) Hx of colonoscopy Family History Mother Acquired amyotrophic lateral sclerosis Father Throat cancer Laryngeal cancer Denies family history of Prostate cancer Social History Smoking Status: Former smoker Tobacco Type: Pipe Second Hand Exposure: No; Hx Alcohol Use: Yes Alcohol type: beer Hx Substance Use: No Preferred Language: Australian Communication Ability: Effective Visual Impairment: Limited Hearing Ability: Hard of Hearing Battery Tester And Repairer Required: No Beliefs That Will Affect Care: None marital status: Current Living Situation: Spouse Current Living Situation Comment: Lives at home with . 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 [employer] Feels Safe at Home: Yes Childhood Exposure to Second-Hand Smoke: Yes caffeine: Yes Dental Care, Regularly: Yes Physical Activity Frequency: Does not Exercise Seatbelt Use: always Sunscreen Use: No (does not go outside) Assistive Devices: None Review of Systems A total of 10 systems reviewed and were otherwise negative Physical Exam Vital Signs Vital Signs - 24 hr 12/07/21 13:26 12/07/21 13:30 Temperature 36.9 C Temperature Source Temporal Artery Scan Pulse Rate 95 H Respiratory Rate 40 H Blood Pressure 139/61 Blood Pressure Mean 87 Pulse Oximetry 97 92 Oxygen Delivery Method Room Air Room Air Sepsis Recent Fever Within 48 Hours No Sepsis New/Unexplained Change in Mental Status No Sepsis Action Taken by Nursing No Action Required CONSTITUTIONAL/VITAL SIGNS: Reviewed / noted above. GENERAL: Non-toxic in appearance. INTEGUMENTARY: Warm, dry, and [place]. HEAD: Normocephalic. EYES: without scleral icterus or trauma. ENT/OROPHARYNX: clear and moist. LYMPHADENOPATHY/NECK: Is supple without lymphadenopathy or meningismus. RESPIRATORY: Clear to auscultation bilaterally. No increased work of breathing. CARDIOVASCULAR: Regular rate and rhythm. GI/ABDOMEN: Soft and nontender. No organomegaly or pulsatile mass. EXTREMITIES: Warm and well perfused. BACK: No CVA tenderness. NEUROLOGICAL: Intact without focal deficits. PSYCHIATRIC: normal affect. MUSCULOSKELETAL: Normally developed with good muscle tone. TRIAGE NURSING DOCUMENTATION REVIEWED. Course Administered Medications Discontinued Medications Albuterol (Albut/Ipratrop 3mg/0.5mg Neb 3 Ml Vial) 3 ml INH NOW STA Stop: 12/07/21 13:31 Last Admin: 12/07/21 14:06 Dose: 3 ml Documented by: [id number] Methylprednisolone (Methylprednisolone 125 Mg/2 Ml Vial) 125 mg IV NOW STA Stop: 12/07/21 13:31 Last Admin: 12/07/21 14:06 Dose: 125 mg Documented by: [id number] Medical Decision Making Differential Diagnosis The differential was considered includes acute myocardial infarction, acute coronary syndrome, myocarditis, pericarditis, pericardial effusions /tamponad, esophageal perforation, pulmonary embolism, pneumonia, pneumothorax, cardiomyopathy, congestive heart, anemia , COPD/asthma exacerbation. Medical Records Attestation: I reviewed the patient's medical records. Home Medications Current Medication List: was personally reviewed by me Laboratory Data Attestation: I reviewed the patient's lab results. Result diagrams: 12/07/21 13:55 12/07/21 13:55 Lab Results 12/07/21 Range/Units 13:55 WBC 7.41 (4.8-10.8) K/uL RBC 4.21 L (4.7-6.1) M/uL Hgb 14.8 (14.0-18.0) g/dL Hct 43.1 (42-52) % MCV 102.4 H (80-100) fL MCH 35.2 H (25-34) pg MCHC 34.3 (32-36) g/dL RDW Std Deviation 53.0 H (36.4-46.3) fL RDW Coeff of Diana 14.2 (11.5-14.5) % Plt Count 302 (130-400) K/uL MPV 8.0 (7.4-10.4) fL Immature Gran % (Auto) 0.3 % Neut % (Auto) 66.9 % Lymph % (Auto) 20.4 % [place] % (Auto) 9.7 % Eos % (Auto) 2.6 % Baso % (Auto) 0.1 % Neut # (Auto) 4.96 (1.4-6.5) K/uL Lymph # (Auto) 1.51 (1.2-3.4) K/uL [place] # (Auto) 0.72 H (0.11-0.59) K/uL Eos # (Auto) 0.19 (0-0.5) K/uL Baso # (Auto) 0.01 (0-0.2) K/uL Immature Gran # (Auto) 0.02 (0.00-0.02) K/uL Imaging Data Radiologist's Impression: Chest X-Ray 12/07/21 13:30 SINGLE VIEW CHEST CLINICAL HISTORY: Dyspnea. FINDINGS: An AP, portable, upright chest radiograph is compared to study dated 10/12/2021 and correlated with chest CT dated 10/15/2021. The examination is degraded by portable technique and patient rotation. The heart is enlarged noting atherosclerotic calcification of the thoracic aorta pulmonary vasculature is noncongested. Chronic interstitial thickening is similar to previous. There is bibasilar scarring/atelectasis. Platelike atelectasis is noted in the right midlung. No airspace consolidation or large pleural effusion is identified. No pneumothorax is seen. The skeletal structures are osteopenic. The bony thorax is grossly intact. Arthritic change is noted in the shoulders. IMPRESSION: Cardiomegaly with no acute cardiopulmonary abnormality. ACT 112: Negative or not required by law. Electronically signed by: Vince Schwartz M.D. 12/07/2021 2:08 PM ECG Data Attestation: I personally reviewed and interpreted this ECG as follows: Additional Comments: Lead EKG: Per my interpretation shows sinus rhythm at a rate of 85. First- degree AV block. No ST elevation. No PVCs MDM Narrative Patient presents with shortness of breath and findings concerning for COPD exacerbation. Sent in for admission by Dr. Washington. Chest x-ray did not show acute process. CBC and chemistry panel was unremarkable. Troponin is negative. The patient was treated with IV Solu-Medrol and an albuterol nebulizer. He will be seen by the hospitalist for further inpatient evaluation and care. Impression & Plan Acute exacerbation of chronic obstructive pulmonary disease Discharge Plan Visit Data Chief Complaint: Referred by Doctor Stated Complaint: DR WASHINGTON SENT, SOB, LUNG ISSUES ED Provider: Braeden Ventura Discharge Problem: Acute exacerbation of chronic obstructive pulmonary disease Patient Disposition: Being Evaluated by Hospitalist Forms Stand Alone Forms: My [facility] Prescriptions Prescriptions: No Action finasteride 5 mg tablet 5 mg PO DAILY Qty: 90 RF: 3 budesonide 0.25 mg/2 mL suspension for nebulization 0.25 mg NEB BIDR Qty: 120 RF: 1 cholecalciferol (vitamin D3) 50 mcg (2,000 unit) capsule 50 mcg PO DAILY RF: 0 (DME) Shower Chair Misc See Rx Instructions .Route Qty: 1 RF: 0 potassium chloride 20 mEq tablet extended release 20 meq PO DAILY RF: 0 furosemide 40 mg tablet 40 mg PO AMHS RF: 0 ipratropium-albuterol 0.5 mg-3 mg(2.5 mg base)/3 mL solution for nebulization 3 ml INH Q6 PRN (Reason: shortness of breath or wheezing) Qty: 360 RF: 11 Referrals Referrals: Eric Valadez DO [Primary Care Provider] -
[2021-12-07 15:00] LABS: Albumin Globulin Ratio 1.2 (0.9-2); Albumin Level 3.8 gm/dl (3.4-5.0); BUN Creatinine Ratio 35.1 (10-20); Bilirubin,Total 0.7 mg/dl (0.2-1.0); Calcium 9.6 mg/dl (8.5-10.1); Creatinine Clr Calc Pharmacy 44.8 ml/min; Est GFR (African American) 93.2 ml/min; Est GFR (Non-African American) 80.5 ml/min; Globulin 3.3 gm/dl (2.5-4.0); Potassium 4.6 mmol/L (3.5-5.1); Total Protein 7.1 gm/dl (6.0-8.3)
[2021-12-07 15:17] LABS: Base Excess ABG 4.8 mEq/L (-9-1.8); HCO3 ABG 29 mmol/L (19-24); Oxygen Saturation ABG 94.4 % (90-95); PCO2 ABG 40 mmHg (35-46); PO2 ABG 67 mmHg (80-95); pH ABG 7.47 (7.35-7.45)
--- NOTE | 2021-12-07 15:34 | History & Physical Report ---
Date of Service December 07, 2021 Assessment & Plan (1) Acute exacerbation of chronic obstructive pulmonary disease: Plan: Acute exacerbation- increase use of oxygen, increase sputum production, increase dyspnea - DDX: mucous plugging with atelectasis vs. COPD vs. - ABG pending- 7.47/40/67/29/ - 125 solumedrol given in EMD- hold with further IV steroids with above ABG - Oxygen 2L Spo2 88-92% acceptable goal - May have component of mucous plugging - WBC normal without fevers - COVID- Negative - Influenza A/B pending - Albuterol/Atrovent nebs q6 schedule for 24 hours - Pulmicort Respules nebs .25mg BID - Formoterol BID PRN if needed - Hypertonic saline nebs with flutter valve - CPAP/BIPAP as needed for dyspnea (2) Heart failure with preserved ejection fraction, borderline, class II: Plan: No evidence of heart failure exacerbation on exam - CXR without pulmonary edema - Will hold his lasix for now as his HCO3 is elevated with a normal PaCO2 - follow (3) Thoracic aortic aneurysm: Plan: 2017 and 2020 with 4.6 CM Ascending Thoracic Aneurysm - Continue BP management, HLD (4) Cognitive disorder: Plan: Dementia with at least short term memory impairment - re-oreint while in house - normal sleep wake cycles - avoid frequent night time interruptions (5) Macrocytic anemia: Plan: MCV > 100 - normal HGB (6) Tracheobronchomalacia: Plan: CPAP/BiPAP as above assist with coughing and deep breathing History of Present Illness Primary Care Provider: Eric Valadez, DO 89 YOM with past medical history of: COPD, tracheomalacia, previous pipe smoker, lower extremity edema, dementia, macrocytic anemia, aortic aneurysm 4.6cm (2020), HFpEF. Patient was referred to the EMD today from his pulmonologists office, where he was seen as an acute visit, as his thought he was dying this morning. Patient states that over the past few weeks he has been more short of breath and needing to rest more after he is walking and needing his home oxygen more than normal. He also endorsed cough that has had increase in sputum production with thick brown secretions but lightens up as the day goes on. He does not note any fevers or chills. OVerall he thinks he is about the same as he was when he was discharged in October. His current symptoms are not associated with any chest pain, palpitations, lower extremity swelling or pain. Patient feels his nebulizers were working and that he has been using them. The patient does suffer from dementia with poor short term memory so difficult to collaborate how he feels. His lower extremity edema that he had last time is resolved. In the EMD the patient had a CXR, routine labs done, was placed on 2L NC and given 125mg of Solumedrol. Hospitalist team was then notified for admission. Will obtain ABG, may need CPAP to ease his dyspnea. Will admit to medical surgical floor, schedule Combivent nebs, continue his Perforomist, add Pulmicort Respules bid, hypertonic saline with flutter valve. Will have Dr. Washington his marketing database analyst continue to follow the patient while in house. Allergies Allergy/AdvReac Type Severity Reaction Status Date / Time No Known Allergies Allergy Verified 12/07/21 14:31 Home Medications Medication Instructions Recorded Confirmed Type cholecalciferol (vitamin D3) 50 50 mcg PO DAILY 05/30/21 12/07/21 History mcg (2,000 unit) capsule ipratropium 0.5 mg-albuterol 3 mg 3 ml INH Q6 PRN #360 ml 10/18/21 12/07/21 Rx (2.5 mg base)/3 mL nebulization soln finasteride 5 mg tablet 5 mg PO DAILY #90 tab 11/04/21 12/07/21 Rx Shower Chair #1 ea 11/14/21 11/14/21 Rx budesonide 0.25 mg/2 mL suspension 0.25 mg NEB BIDR #120 ml 11/23/21 12/07/21 Rx for nebulization furosemide 40 mg tablet 40 mg PO AMHS 12/07/21 12/07/21 History potassium chloride 20 mEq 20 meq PO DAILY 12/07/21 12/07/21 History tablet,extended release Past Med/Surg History Medical History Anemia Chronic Asthma Atelectasis Benign prostatic hyperplasia with urinary obstruction Chronic dyspnea Chronic osteoarthritis COPD (chronic obstructive pulmonary disease) Degenerative arthritis of knee, bilateral Dementia Patient + provided PMHX to [facility] Frequent falls 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, borderline, class II History of basal cell carcinoma Left inguinal hernia Poor historian Poor short term memory Thoracic aortic aneurysm 4.5 cm per recent Abd/Pelvis CT 12/08/20 ([place]), under surveillance Venous insufficiency Surgical History H/O repair of rotator cuff History of basal cell carcinoma (BCC) excision History of biliary stent insertion History of ERCP ERCP (12/09/20): Grade view 2, MAC# 3.0, ETT 8.0 at [facility] History of lithotripsy History of squamous cell carcinoma excision History of tooth extraction Hx of cataract surgery Hx of cholecystectomy 12/13/20 ([place]) Hx of colonoscopy Family History Mother Acquired amyotrophic lateral sclerosis Father Throat cancer Laryngeal cancer Denies family history of Prostate cancer Social History Smoking Status: Former smoker Tobacco Type: Pipe Second Hand Exposure: No; Hx Alcohol Use: Yes Alcohol type: beer Hx Substance Use: No Preferred Language: Pakistani Communication Ability: Effective Visual Impairment: Limited Hearing Ability: Hard of Hearing Secondary Social Studies Teacher Required: No Beliefs That Will Affect Care: None marital status: Current Living Situation: Spouse Current Living Situation Comment: Lives at home with . 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 [employer] Feels Safe at Home: Yes Childhood Exposure to Second-Hand Smoke: Yes caffeine: Yes Dental Care, Regularly: Yes Physical Activity Frequency: Does not Exercise Seatbelt Use: always Sunscreen Use: No (does not go outside) Assistive Devices: None Review of Systems Review of Systems: REVIEW OF SYSTEMS: Constitutional: No fever, sweats or chills Eyes: No diplopia, no worsening or blurred vision ENT: normal hearing, no trouble swallowing Respiratory: (+) cough, sputum, dyspnea at rest or on exertion Cardiovascular: No chest pain, tightness or palpitations Abdomen: No pain, nausea, vomiting, diarrhea or constipation Musculoskeletal: No joint pain, calf pain, swelling Neurologic: No weakness, numbness/tingling, or balance problems Psychiatric: No anxiety or depression Skin: No rash or itch Physical Exam Physical Exam: PHYSICAL EXAM: General: awake, alert, dsypneic Head: Normocephalic, atraumatic ENT: PERRLA, EOMI, no pharyngeal exudate, mucous membranes dry, clearing throat more frequently Neuro: AAO x 3, speech clear and appropriate, strength intact bilaterally 5/5, sensation intact and equal all extremities and dermatomes, no pronator drift Chest: equal rise and fall of the chest, dyspnea with exertion, able to speak in full sentences without gasping, inspiratory and expiratory wheezing bilateral lower bases, Cardiac: Regular rate and rhythm, telemetry reviewed, skin warm dry, cap refill <3 seconds, peripheral pulses +2 no JVD, no murmur, no edema GI: NABS x 4 quadrants, soft, nontender to palpation, no rebound, guarding or tenderness : Spontaneously voiding, no pain, no CVA tenderness, Extremities: Normal inspection, no peripheral edema or erythema, calfs nontender to palpation Psych: Normal mood and affect Skin: no rash or erythema Results & Data Results & Data ([facility]) Vital Signs (Past 12 Hours) Vital Signs Temp Pulse Resp BP Pulse Ox 12/07/21 13:30 92 12/07/21 13:26 36.9 C 95 H 40 H 139/61 97 Laboratory Results Abnormal lab results 12/07/21 12/07/21 Range/Units 13:55 13:55 RBC 4.21 L (4.7-6.1) M/uL MCV 102.4 H (80-100) fL MCH 35.2 H (25-34) pg RDW Std Deviation 53.0 H (36.4-46.3) fL [place] # (Auto) 0.72 H (0.11-0.59) K/uL Carbon Dioxide 36 H (21-32) mmol/L BUN 27 H (6-23) mg/dl BUN/Creatinine Ratio 35.1 H (10-20) Glucose 102 H (70-99(Fasting)) mg/dl Diagnostic Findings Chest X-Ray 12/07/21 13:30 SINGLE VIEW CHEST CLINICAL HISTORY: Dyspnea. FINDINGS: An AP, portable, upright chest radiograph is compared to study dated 10/12/2021 and correlated with chest CT dated 10/15/2021. The examination is degraded by portable technique and patient rotation. The heart is enlarged noting atherosclerotic calcification of the thoracic aorta pulmonary vasculature is noncongested. Chronic interstitial thickening is similar to previous. There is bibasilar scarring/atelectasis. Platelike atelectasis is noted in the right midlung. No airspace consolidation or large pleural effusion is identified. No pneumothorax is seen. The skeletal structures are osteopenic. The bony thorax is grossly intact. Arthritic change is noted in the shoulders. IMPRESSION: Cardiomegaly with no acute cardiopulmonary abnormality. ACT 112: Negative or not required by law. Electronically signed by: Vince Schwartz M.D. 12/07/2021 2:08 PM Medications Administered Home Medications cholecalciferol (vitamin D3) 50 mcg (2,000 unit) capsule 50 mcg PO DAILY 05/30/21 [History Confirmed 12/07/21] ipratropium 0.5 mg-albuterol 3 mg (2.5 mg base)/3 mL nebulization soln 3 ml INH Q6 PRN #360 ml 10/18/21 [Rx Confirmed 12/07/21] finasteride 5 mg tablet 5 mg PO DAILY #90 tab 11/04/21 [Rx Confirmed 12/07/21] Shower Chair #1 ea 11/14/21 [Rx Confirmed 11/14/21] budesonide 0.25 mg/2 mL suspension for nebulization 0.25 mg NEB BIDR #120 ml 11/23/21 [Rx Confirmed 12/07/21] furosemide 40 mg tablet 40 mg PO AMHS 12/07/21 [History Confirmed 12/07/21] potassium chloride 20 mEq tablet,extended release 20 meq PO DAILY 12/07/21 [History Confirmed 12/07/21] Active Medications Sodium Chloride (Sodium Chlor 7% 4 Ml Neb) 4 ml NEB BIDR GAURI Stop: 01/06/22 18:59 ECG Additional Comments: Sinus rhythm with sinus arrhythmia with 1st degree A-V block Inferior infarct (cited on or before 12-OCT-2021) Cannot rule out Anterior infarct (cited on or before 12-OCT-2021) Abnormal ECG When compared with ECG of 12-OCT-2021 10:30, Premature ventricular complexes are no longer Present Code Status & VTE Plan Code Status CODE: DNR/DNI VTE: SCDS, Heparin 5000 units subq 12 PG Care Time/CCT Total # of Minutes Spent Total Time Spent with Patient: Total time spent is greater than 50% in coordination of care (as documented) at patient's floor/unit and/or counseling patient: Coding Level of Care Code INT OBSERVATION CARE 70M LVL 3 Diagnoses Acute exacerbation of chronic obstructive pulmonary disease J44.1 Heart failure with preserved ejection fraction, borderline, class II I50.30 Thoracic aortic aneurysm I71.2 Cognitive disorder F09 Macrocytic anemia D53.9 Tracheobronchomalacia J39.8
[2021-12-07 16:02] LABS: Influenza A virus by PCR Negative (Negative); Influenza B virus by PCR Negative (Negative)
[2021-12-07 16:10] LABS: Allen Test Pos (Pos)
[2021-12-07] MEDS ORDERED: BUDESONIDE 0.25 MG/2 ML NEB SCH ×2 (17:49→19:00)
[2021-12-07] MEDS ORDERED: ONDANSETRON INJ 2 MG/ML 2 ML VIAL IV PRN (17:49)
[2021-12-07] MEDS ORDERED: FORMOTEROL 20 MCG/2 ML VIAL NEB PRN (17:49)
[2021-12-07] MEDS ORDERED: ACETAMINOPHEN 325 MG TAB PO PRN (17:49)
[2021-12-07] MEDS: ALBUT/IPRATROP 3MG/0.5MG NEB 3 ML VIAL INH SCH ×3 (19:35→23:58)
[2021-12-07] MEDS: SODIUM CHLOR 7% 4 ML NEB NEB SCH (19:36)
[2021-12-07] MEDS: BUDESONIDE 0.25 MG/2 ML VIAL (PULMICORT) NEB SCH (19:36)
[2021-12-07] MEDS: FORMOTEROL 20 MCG/2 ML VIAL NEB SCH (19:49)
[2021-12-07] MEDS ORDERED: FUROSEMIDE 40 MG TAB PO SCH (21:00)
[2021-12-07] MEDS ORDERED: FORMOTEROL 20 MCG/2 ML VIAL NEB SCH (21:00)
[2021-12-07] MEDS: HEPARIN SOD 5,000 UNIT/0.5 ML VIAL SQ SCH (21:33)
[2021-12-08 06:26] LABS: Appearance Urine Clear (Clear); Bilirubin Urine Negative (Negative); Blood Urine Negative (Negative); Color Urine Dark Yellow; Glucose Urine UA Negative (Negative); Ketones Urine Trace (Negative); Leukocyte Esterase Urine Negative (Negative); Nitrite Urine Negative (Negative); Protein Urine Negative (Negative); Specific Gravity Urine 1.028 (1.000-1.030); Urobilinogen Urine Negative (Negative)
[2021-12-08] MEDS ORDERED: FORMOTEROL 20 MCG/2 ML VIAL NEB SCH (07:00)
[2021-12-08] MEDS: BUDESONIDE 0.25 MG/2 ML VIAL (PULMICORT) NEB SCH (07:04)
[2021-12-08] MEDS: FORMOTEROL 20 MCG/2 ML VIAL NEB SCH (07:04)
[2021-12-08] MEDS: SODIUM CHLOR 7% 4 ML NEB NEB SCH (07:06)
[2021-12-08] MEDS: ALBUT/IPRATROP 3MG/0.5MG NEB 3 ML VIAL INH SCH ×2 (07:06→12:51)
--- NOTE | 2021-12-08 07:14 | Electrocardiogram Report ---
Test Reason : Blood Pressure : / mmHG Vent. Rate : 085 BPM Atrial Rate : 085 BPM P-R Int : 224 ms QRS Dur : 098 ms QT Int : 366 ms P-R-T Axes : 063 -29 025 degrees QTc Int : 435 ms Poor data quality, interpretation may be adversely affected Sinus rhythm with sinus arrhythmia with 1st degree A-V block Inferior infarct (cited on or before 12-OCT-2021) Cannot rule out Anterior infarct (cited on or before 12-OCT-2021) Abnormal ECG When compared with ECG of 12-OCT-2021 10:30, Premature ventricular complexes are no longer Present Confirmed by Dom Hyde ([id number]) on 12/08/2021 7:14:01 AM Referred By: Confirmed By:Dom Hyde
[2021-12-08 07:35] LABS: Hematocrit (blood only) 35.3 % (42-52); Immature Granulocytes # (auto) 0.03 K/uL (0.00-0.02); Immature Granulocytes % (auto) 0.4 %; Lymphocytes # (auto) 1.03 K/uL (1.2-3.4); Lymphocytes % (auto) 12.4 %; Mean Corpuscular Hemoglobin 34.4 pg (25-34); Mean Corpuscular Volume 101.1 fL (80-100); Monocytes % (auto) 10.8 %; Neutrophils # (auto) 6.34 K/uL (1.4-6.5); Neutrophils % (auto) 76.4 %; Platelet Count 259 K/uL (130-400); RDW Coefficient of Variation 14.1 % (11.5-14.5); RDW Standard Deviation 52.3 fL (36.4-46.3); Red Blood Count 3.49 M/uL (4.7-6.1)
[2021-12-08 07:45] VITALS: BP 97/59; TEMP 97.9
[2021-12-08] MEDS: HEPARIN SOD 5,000 UNIT/0.5 ML VIAL SQ SCH (07:46)
[2021-12-08 07:53] LABS: BUN Creatinine Ratio 40.8 (10-20); Calcium 8.6 mg/dl (8.5-10.1); Creatinine Clr Calc Pharmacy 45.4 ml/min; Est GFR (African American) 93.8 ml/min; Est GFR (Non-African American) 80.9 ml/min; Magnesium 1.9 mg/dl (1.7-2.4); Potassium 3.3 mmol/L (3.5-5.1)
--- NOTE | 2021-12-08 08:42 | Pulmonology Progress Note ---
Date of Service December 08, 2021 Assessment & Plan (1) Chronic dyspnea: (2) Heart failure with preserved ejection fraction, borderline, class II: Plan: Impression: 89-year-old frail male with a past medical history of COPD, diastolic CHF, dementia admitted from clinic yesterday due to tachypnea and subjective shortness of breath. He is markedly better today but I do not think we have done anything to change his physiologic status. His work-up was unrevealing including a preserved blood gas and an unremarkable chest x-ray. I am suspicious that the patient's underlying dementia neurocognitive function may have something to do with his perception of dyspnea. Recommendations: 1. COPD: The patient appears reasonably well controlled currently without evidence of bronchospasm. There is no indication for additional steroids. Continue Perforomist and budesonide as well as as needed duo nebs. I do not think COPD is the etiology of the patient's shortness of breath. 2. We will repeat the patient's CT angiogram to exclude PE although my clinical suspicion is quite low. This will also allow for interrogation of the pulmonary parenchyma 3. Patient's blood gas BNP and pro calcitonin were all normal. 4. Patient may benefit from pulmonary rehab in the outpatient setting although his underlying dementia and advanced age may limit overall benefit. 5. If the patient CT angiogram is okay and he can be ambulated around the halls without becoming dyspneic, he can likely be dismissed from the hospital with outpatient pulmonary follow-up on the inhaler regimen noted above. If he continues to have shortness of breath, we may consider other adjuvants to treat his chronic dyspnea. Discussed with patient at bedside Admission and Anticipated Discharge Date Admission Date: December 07, 2021 Subjective Patient seen and examined. EMR reviewed. The patient is sitting up in a chair. He is off oxygen. He is vigorously eating his breakfast with no evidence of shortness of breath. He looks markedly different than he did in clinic yesterday. He had a chest x-ray and lab studies performed. He denies any wheezing coughing or sputum production. No chest pain or palpitations. No new shortness of breath Review of Systems Review of Systems: All systems reviewed & are unremarkable except as noted in Subjective Physical Exam Constitutional: WD/WN, vitals as above Neck: trachea midline, no thyromegaly Respiratory: normal respiratory effort, lungs clear to auscultation Cardiovascular: RRR, no murmur, no edema Gastrointestinal (Abdomen): normal bowel sounds, soft, nontender, no hepatosplenomegaly Musculoskeletal: Extremities: extremities normal to inspection Skin: no rashes, warm and dry Neurologic: Nonfocal exam Lymphatic: no cervical lymphadenopathy Results & Data Results & Data ([facility]) Vital Signs (Past 12 Hours) Vital Signs Temp Pulse Resp BP Pulse Ox 12/08/21 07:42 36.6 C 79 18 97/59 L 96 12/08/21 07:06 88 20 93 12/08/21 01:40 73 103/66 93 12/07/21 22:19 36.7 C 86 14 95/56 L 91 Laboratory Results Procalcitonin undetectable BNP 28 Critical Care Results & Data Vital Signs (Past 12 Hours) Vital Signs Temp Pulse Resp BP Pulse Ox 12/08/21 07:42 36.6 C 79 18 97/59 L 96 12/08/21 07:06 88 20 93 12/08/21 01:40 73 103/66 93 12/07/21 22:19 36.7 C 86 14 95/56 L 91 Lab & Micro Results (Past 24 Hours) RBC 3.49 M/uL (4.7-6.1) L 12/08/21 WBC 8.30 K/uL (4.8-10.8) 12/08/21 Hgb 12.0 g/dL (14.0-18.0) L 12/08/21 Hct 35.3 % (42-52) L 12/08/21 MCV 101.1 fL (80-100) H 12/08/21 MCH 34.4 pg (25-34) H 12/08/21 MCHC 34.0 g/dL (32-36) 12/08/21 RDW Standard Deviation 52.3 fL (36.4-46.3) H 12/08/21 RDW Coefficient of Variation 14.1 % (11.5-14.5) 12/08/21 Plt Count 259 K/uL (130-400) 12/08/21 MPV 8.0 fL (7.4-10.4) 12/08/21 Neutrophils (%) (Auto) 76.4 % 12/08/21 Lymphocytes (%) (Auto) 12.4 % 12/08/21 Monocytes # (Auto) 0.90 K/uL (0.11-0.59) H 12/08/21 Eosinophils # (Auto) 0.00 K/uL (0-0.5) 12/08/21 Immature Granulocyte % (Auto) 0.4 % 12/08/21 Neutrophils # (Auto) 6.34 K/uL (1.4-6.5) 12/08/21 Lymphocytes # (Auto) 1.03 K/uL (1.2-3.4) L 12/08/21 Monocytes # (Auto) 0.90 K/uL (0.11-0.59) H 12/08/21 Eosinophils # (Auto) 0.00 K/uL (0-0.5) 12/08/21 Basophils # (Auto) 0.00 K/uL (0-0.2) 12/08/21 Immature Granulocyte # (Auto) 0.03 K/uL (0.00-0.02) H 12/08/21 Na 139 mmol/L (136-145) 12/08/21 K 3.3 mmol/L (3.5-5.1) L 12/08/21 Cl 102 mmol/L (98-107) 12/08/21 CO2 30 mmol/L (21-32) 12/08/21 Anion Gap 7 (3-11) 12/08/21 BUN 31 mg/dl (6-23) H 12/08/21 Creatinine 0.76 mg/dl (0.6-1.4) 12/08/21 Estimated GFR ( Amer) 93.8 ml/min 12/08/21 Estimated GFR (Non-Af Amer) 80.9 ml/min 12/08/21 BUN/Creatinine Ratio 40.8 (10-20) H 12/08/21 Glu 85 mg/dl (70-99(Fasting)) 12/08/21 Ca 8.6 mg/dl (8.5-10.1) 12/08/21 Total Bilirubin 0.7 mg/dl (0.2-1.0) 12/07/21 AST 19 U/L (13-39) 12/07/21 ALT 11 U/L (7-52) 12/07/21 Alkaline Phosphatase 58 U/L (34-104) 12/07/21 TP 7.1 gm/dl (6.0-8.3) 12/07/21 Albumin 3.8 gm/dl (3.4-5.0) 12/07/21 Globulin 3.3 gm/dl (2.5-4.0) 12/07/21 Albumin/Globulin Ratio 1.2 (0.9-2) 12/07/21 Mg 1.9 mg/dl (1.7-2.4) 12/08/21 07:18 12/08/21 Calcium Level 8.6 mg/dl (8.5-10.1) 12/08/21 07:18 12/08/21 Blood Gas Barometric Pressure 725.9 mm/Hg 12/07/21 15:08 12/07/21 Arterial Blood pH 7.47 (7.35-7.45) H 12/07/21 15:08 12/07/21 Arterial Blood Partial Pressure CO2 40 mmHg (35-46) 12/07/21 15:08 12/07/21 Arterial Blood Partial Pressure O2 67 mmHg (80-95) L 12/07/21 15:08 12/07/21 Arterial Blood HCO3 29 mmol/L (19-24) H 12/07/21 15:08 12/07/21 Arterial Blood Base Excess 4.8 mEq/L (-9-1.8) H 12/07/21 15:08 12/07/21 Arterial Blood Oxygen Saturation 94.4 % (90-95) 12/07/21 15:08 12/07/21 Blood Gas Oxygen Given 2L 12/07/21 15:08 12/07/21 Markie Test Pos (Pos) 12/07/21 15:08 12/07/21 Blood Gas Barometric Pressure 725.9 mm/Hg 12/07/21 15:08 12/07/21 Diagnostic Findings (Past 24 Hours) Chest X-Ray 12/07/21 13:30 SINGLE VIEW CHEST CLINICAL HISTORY: Dyspnea. FINDINGS: An AP, portable, upright chest radiograph is compared to study dated 10/12/2021 and correlated with chest CT dated 10/15/2021. The examination is degraded by portable technique and patient rotation. The heart is enlarged noting atherosclerotic calcification of the thoracic aorta pulmonary vasculature is noncongested. Chronic interstitial thickening is similar to previous. There is bibasilar scarring/atelectasis. Platelike atelectasis is noted in the right midlung. No airspace consolidation or large pleural effusion is identified. No pneumothorax is seen. The skeletal structures are osteopenic. The bony thorax is grossly intact. Arthritic change is noted in the shoulders. IMPRESSION: Cardiomegaly with no acute cardiopulmonary abnormality. ACT 112: Negative or not required by law. Electronically signed by: Vince Schwartz M.D. 12/07/2021 2:08 PM I & O Totals 24 Hours 12/07/21 12/08/21 12/09/21 06:59 06:59 06:59 Intake Total 250 / 250 Output Total 450 / 450 Balance -200 / -200 Cumulative 12/07/21 13:22 thru 12/08/21 06:00 Intake Total 250 Output Total 450 Balance -200 RT Ventilator Mngmt (Last Documented) Ventilator Ordered Settings Respiratory Rate 18 12/08/21 07:42 Ventilator - PT Measurements Respiratory Rate 18 PG Care Time/CCT Total # of Minutes Spent Total Time Spent with Patient: Total time spent is greater than 50% in coordination of care (as documented) at patient's floor/unit and/or counseling patient: Coding Level of Care Code 81638 Subseq Hosp Care Lvl 3 Diagnoses Chronic dyspnea R06.09 Heart failure with preserved ejection fraction, borderline, class II I50.30
[2021-12-08] MEDS ORDERED: FUROSEMIDE 40 MG TAB PO SCH (09:00)
[2021-12-08] MEDS ORDERED: FINASTERIDE 5 MG TAB PO SCH (09:00)
[2021-12-08] MEDS ORDERED: OPTIRAY 320 125ml IV ONE (09:42)
--- NOTE | 2021-12-08 10:44 | CT Scan Report ---
CT ANGIOGRAM OF THE CHEST CLINICAL HISTORY: Atypical chest pain. Dyspnea. Cough. COMPARISON STUDY: Chest CT scans dated 10/15/2021 and 05/08/2018 TECHNIQUE: Following the IV administration of 120 cc of Optiray 320, CT angiogram of the chest was pe rformed from the upper abdomen to the thoracic inlet utilizing the pulmonary embolus protocol. Images are reviewed in the axial, sagittal, and coronal planes. 3-D MIPS images are created and assessed. I V contrast was administered without complication. A dose lowering technique was utilized adhering to the principles of ALARA. The Examination is degraded by artifact from the arms which could not be el evated above the chest. CT DOSE: 286.92 mGy.cm FINDINGS: Thyroid: Normal in size and heterogeneous in attenuation. Thoracic aorta: There is aneurysmal dilatation of the ascending thoracic aorta which measures up to 4 .9 cm in diameter. The remainder of the thoracic aorta is normal in caliber, and the arch demonstrate s standard 3-vessel anatomy. No evidence of dissection is seen. Pulmonary vasculature: The main pulmonary arteries are dilated suggesting pulmonary artery hypertensi on. There are no filling defects identified in main, lobar, or segmental pulmonary branches to sugges t pulmonary embolus. Heart: The heart is enlarged and without pericardial effusion. There are coronary artery calcificatio ns. Lungs and pleural spaces: There is segmental atelectasis at the right lung base. Foci of cortical sca rring are seen throughout both lungs. There is no airspace consolidation typical for pneumonia or ple ural effusion. Minimal secretions are noted in the trachea and right mainstem bronchus. Foci of mucus plugging are noted in the right lower lobe airways. There are scattered calcified granulomas. Mediastinum: There is no mediastinal lymphadenopathy. [place]: Clear. Axillae: There is no axillary lymphadenopathy. Upper abdomen: Partially visualized upper abdominal viscera is within normal limits. Skeletal structures: The skeletal structures are osteopenic. Degenerative change and kyphoscoliosis i s noted throughout the thoracic spine. There are chronic compression deformities of T4 and T12. No ly tic or blastic bony lesions are seen. IMPRESSION: 1. There is no evidence of pulmonary embolus in the main, lobar, or segmental pulmonary arteries. 2. There is no airspace consolidation typical for pneumonia or pleural effusion. 3. Cardiomegaly. 4. There is aneurysmal dilatation of the ascending thoracic aorta which measures up to 4.9 cm in diam eter. 5. Additional findings as above. ACT 112: Negative or not required by law. Electronically signed by: Vince Schwartz M.D. 12/08/2021 10:42 AM
[2021-12-08 13:50] VITALS: PULSE 112; O2SAT 86
--- NOTE | 2021-12-08 14:14 | Discharge Summary ---
Date of Service December 08, 2021 Admission HPI Per Admitting Provider 89 YOM with past medical history of: COPD, tracheomalacia, previous pipe smoker, lower extremity edema, dementia, macrocytic anemia, aortic aneurysm 4.6cm (2020), HFpEF. Patient was referred to the EMD today from his pulmonologists office, where he was seen as an acute visit, as his thought he was dying this morning. Patient states that over the past few weeks he has been more short of breath and needing to rest more after he is walking and needing his home oxygen more than normal. He also endorsed cough that has had increase in sputum production with thick brown secretions but lightens up as the day goes on. He does not note any fevers or chills. OVerall he thinks he is about the same as he was when he was discharged in October. His current symptoms are not associated with any chest pain, palpitations, lower extremity swelling or pain. Patient feels his nebulizers were working and that he has been using them. The patient does suffer from dementia with poor short term memory so difficult to collaborate how he feels. His lower extremity edema that he had last time is resolved. In the EMD the patient had a CXR, routine labs done, was placed on 2L NC and given 125mg of Solumedrol. Hospitalist team was then notified for admission. Will obtain ABG, may need CPAP to ease his dyspnea. Will admit to medical surgical floor, schedule Combivent nebs, continue his Perforomist, add Pulmicort Respules bid, hypertonic saline with flutter valve. Will have Dr. Washington his dental coordinator continue to follow the patient while in house. Principal Diagnosis Acute on chronic respiratory failure with hypoxia, COPD exacerbation, atelectasis Discharge Exam Constitutional WD/WN, vitals as above Neck trachea midline, no thyromegaly Respiratory normal respiratory effort, lungs clear to auscultation Cardiovascular RRR, no murmur, no edema Chest (Breasts) Chest: normal inspection of chest Gastrointestinal (Abdomen) normal bowel sounds, soft, nontender, no hepatosplenomegaly Musculoskeletal Extremities: extremities normal to inspection; no cyanosis and no clubbing Skin no rashes, warm and dry Neurologic moves all extremities and awake; no focal motor deficits Psychiatric Orientation: alert, oriented to person, oriented to place and cooperative Lymphatic no lymphedema Discharge Data Allergies Allergy/AdvReac Type Severity Reaction Status Date / Time No Known Allergies Allergy Verified 12/07/21 14:31 Consultations 12/07/21 14:25 ED Decision to Admit Stat 12/07/21 17:49 Consult Pulmonology Routine Ordered Studies 12/08/21 08:37 CT angio chest PE protocol Routine Hospital Course (1) Acute exacerbation of chronic obstructive pulmonary disease: Acute exacerbation- increase use of oxygen, increase sputum production, increase dyspnea - DDX: mucous plugging with atelectasis vs. COPD - ABG - 7.47/40/67/29/ - 125 solumedrol given in EMD- hold with further IV steroids with above ABG - Oxygen 2L Spo2 88-92% acceptable goal-2 step at discharge shows needs 2LNC continuously as before - May have component of mucous plugging as seen on CTA CHest which was also negative for PE - WBC normal without fevers - COVID- Negative - Influenza A/B negative - continue Albuterol/Atrovent nebs prn - continue Pulmicort Respules nebs .25mg BID - Formoterol BID added for home use - Hypertonic saline nebs with flutter valve given PULM consult appreciated--> recommends stable for dc to home on above nebs Much improved and ready for dc (2) Acute and chronic respiratory failure with hypoxia: as above (3) Heart failure with preserved ejection fraction, borderline, class II: No evidence of heart failure exacerbation on exam - CXR without pulmonary edema - ok to continue home lasix and KCl (4) Thoracic aortic aneurysm: 2018 and 2020 with 4.6 CM Ascending Thoracic Aneurysm. Now measuring 4.9cm on CTA Chest here - Continue BP management f/u as outpt, no surgical repair needed unless > 5.5cm (5) Cognitive disorder: Dementia with at least short term memory impairment - re-oreint while in house - normal sleep wake cycles - avoid frequent night time interruptions (6) Macrocytic anemia: MCV > 100 - normal HGB f/u with PCP (7) Tracheobronchomalacia: CPAP/BiPAP as above assist with coughing and deep breathing Dispo-stable for dc to home Home Health Attestation I certify that this patient is under my care and that I, or a physicians television production assistant working with me, had a face to-face encounter that meets the home health [id number] encounter requirements with this patient. The encounter with the patient was in whole, or in part, for the following medical condition, which is the primary reason for home health care (list medical condition): COPD, acute on chronic respiratory failure with hypoxia I certify that, based on my findings, the following services are medically necessary home health services: home nursing, PT/OT My clinical findings support the need for the above services because:generalized debility, severe COPD, dyspnea, makes very difficult to leave the home Further, I certify that my clinical findings support that this patient is homebound (i.e. absences from home require considerable and taxing effort and are for medical reasons or confucianist services or infrequently or of short duration when for other reasons) because: as chema Certification for Home Health Services: Based on the above findings, I certify that this patient is confined to the home and needs intermittent snf care, physical therapy and/or speech therapy or continues to need occupational therapy. The patient is under my care, and I have initiated the establishment of the plan of care. This patient will be followed by a physician who will periodically review the plan of care. Total Time Total Time Spent Total Time Spent (In Minutes): 35 min Discharge Plan Discharge Items Patient Disposition: Home - Home Health Services Reason For Visit: DYSPNEA Discharge Diagnosis: Acute on chronic respiratory failure with hypoxia, COPD exacerbation Condition on Discharge: Good Activity: Resume your previous activity Non-emergency contact: Primary Care Provider and Pallet Rectifier Call non-emergency contact if: you have any medication questions and your symptoms worsen Follow-up/Referrals: Eric Valadez DO [Primary Care Provider] - 12/12/21 11:30 am Diet: Heart Healthy and Low Sodium (2gm) Addtl Attending Provider Instructions: You were admitted with shortness of breath likely from some excess mucus in your lungs. This cleared up with extra nebulizer treatments and one dose of steroids. We are adding on another nebulized medication called formoterol to be used twice a day at home. You do not need any additional steroids on discharge. You had a CT scan of your chest that was NEGATIVE for any blood clots in the lungs. You still need 2L of oxygen via nasal cannula continuously as before. Follow up with your PCP as scheduled for you. Pending Studies at Discharge: No Stand-Alone Forms: My [facility] Medications and DC Order Prescriptions: New formoterol fumarate [Perforomist] 20 mcg/2 mL Solution For Nebulization 20 mcg NEB BIDR Qty: 120 RF: 0 Continued finasteride 5 mg tablet 5 mg PO DAILY Qty: 90 RF: 3 budesonide 0.25 mg/2 mL suspension for nebulization 0.25 mg NEB BIDR Qty: 120 RF: 1 cholecalciferol (vitamin D3) 50 mcg (2,000 unit) capsule 50 mcg PO DAILY RF: 0 (DME) Shower Chair Misc See Rx Instructions .Route Qty: 1 RF: 0 potassium chloride 20 mEq tablet extended release 20 meq PO DAILY RF: 0 furosemide 40 mg tablet 40 mg PO AMHS RF: 0 ipratropium-albuterol 0.5 mg-3 mg(2.5 mg base)/3 mL solution for nebulization 3 ml INH Q6 PRN (Reason: shortness of breath or wheezing) Qty: 360 RF: 11 Discharge Orders: Discharge Order (Routine); Ordered 12/08/21 Ordered By: Mica Weaver Admission Data Admit Date/Time: 12/07/21 14:54 Attending Provider: Mica Weaver Admit Provider: Grady Vital Primary Care Provider: Eric Valadez Other Providers: Grady Vital ; Paco Washington Coding Level of Care Code D/C DAY MANAGEMENT >30 MINS Diagnoses Acute exacerbation of chronic obstructive pulmonary disease J44.1 Heart failure with preserved ejection fraction, borderline, class II I50.30 Thoracic aortic aneurysm I71.2 Cognitive disorder F09 Macrocytic anemia D53.9 Tracheobronchomalacia J39.8 Acute and chronic respiratory failure with hypoxia J96.21
== END 2021-12-08 14:46 | disposition home health service (06) ==
LOC: ED 13:22 → 3N 13:22 → SUATTDRO 14:54 → 3N 16:51